=== PATIENT | female | born 1950 | race Caucasian/White ===

== ENCOUNTER 2020-06-12 07:57 | Emergency (ER) | payer OTHER, SELFPAY ==
--- NOTE | ~2020-06-12 | CT_ITS ---
EXAMINATION: CTA CHEST, ABDOMEN AND PELVIS WITH IV CONTRAST CLINICAL INFORMATION: Severe chest pain radiating to back and abdomen. Evaluate for aortic disease. COMPARISON: Previous CTA of the chest January [address] of the abdomen and pelvis August 2018 TECHNIQUE: Axial images through the chest, abdomen and pelvis following oral and 85 mL Omnipaque 350 intravenous contrast. Sagittal and coronal reconstructions on the technologist workstation were performed. Patient dose 5 6 6 mg/cm. This CT examination was performed using dose optimization techniques as appropriate, variously including the following: *Automated exposure control *Adjustment of mA and/or kV according to patient size (this includes techniques or standardized protocols for targeted exams where dose is matched to indication/reason for exam; i.e. extremities or head) *Use of iterative reconstruction technique FINDINGS: Vascular: There is evidence of severe atherosclerotic disease with vessel wall calcification. The thoracic aorta is tortuous but normal in caliber. No evidence of aneurysm or dissection is seen. The great vessel origins are patent. The pulmonary arteries are well-opacified. No pulmonary embolism is seen. There is ectasia or small aneurysm of the infrarenal abdominal aorta. This measures maximum 3 x 3.4 cm in AP and transverse dimension. There is significant atherosclerotic plaque seen in the infrarenal abdominal aorta. The right common, internal and extrarenal iliac arteries are patent. There is a mild stenosis of the right proximal and mid common iliac artery. There is a diseased right common femoral artery and proximal SFA.. The left common iliac artery is occluded. There is reconstitution of the left iliac bifurcation. The reconstituted left internal and external iliac arteries appear severely diseased. The left common femoral artery demonstrates significant plaque and stenosis. The left femoral bifurcation appears diseased. There is is a mild to moderate stenosis at the celiac axis origin with poststenotic dilatation. There is a a moderate stenosis at the origin and proximal SMA. The JERILYN is patent. There is a mild to moderate stenosis at the origin of the right renal artery. There is an early prehilar branching pattern of the right. There is a mild to moderate stenosis at the origin of the left renal artery. Chest: There is evidence of centrilobular emphysema. There is scarring or subsegmental atelectasis and cicatrization bronchiectasis seen in the bilateral upper lobes. This is new from 2012 exam. There is a 4 mm peripheral left lower lobe nodule axial image 249 series 4. This is triangular in shape and may represent an intrapulmonary lymph node. There are no enlarged hilar or mediastinal lymph nodes. The heart does not appear enlarged. There is no pericardial effusion. There is coronary artery calcification. Abdomen and pelvis: The liver and gallbladder are unremarkable. There is no intrahepatic biliary duct dilatation. The common bile duct is slightly dilated measuring 1 cm. The common bile duct is dilated down to the head of the pancreas and tapers smoothly. No common bile duct stone is appreciated. There is a heterogeneous enhancement of the spleen. This may be related to arterial phase of injection. There is question of a low-attenuation lesion in the head/neck of the pancreas. This area measures 8 x 15 mm axial image 60 series 9. Adrenal glands are unremarkable. There is a large right renal cyst in the upper pole measuring 8 x 10 mm. There is a 3 cm cyst in the lower pole of the right kidney. There are areas of bilateral renal cortical thinning or scarring. The bladder and pelvic organs is not well visualized due to artifact from bilateral hip replacements. There is stool throughout the colon. There is mild diverticulosis. No evidence of diverticulitis is seen. The appendix is normal. The stomach is normal. No ascites or adenopathy is seen. There are T4, T6 and T7 vertebral body compression fractures. The T4 and T7 vertebral bodies have increased sclerosis at the superior endplates and may be recent. This could be better assessed with MRI or bone scan. There are old or healing lower right anterior rib fractures. There are degenerative changes of the spine and scoliosis. There are bilateral hip replacements. 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 Mild right proximal and mid common iliac artery stenoses. Right common femoral and SFA disease. Occluded left common iliac artery. Reconstituted diseased left external iliac artery. Diseased left common femoral artery and femoral bifurcation. Bilateral renal artery stenoses. Celiac axis and SMA stenoses. Tortuous but normal caliber thoracic aorta. No pulmonary embolism seen. CHEST: Emphysema. Scarring or chronic subsegmental atelectasis and mild bronchiectasis of in both upper lobes. Coronary artery calcification. Abdomen and pelvis: Very heterogeneous enhancement of the spleen. This may be related to early arterial phase enhancement. Question low-attenuation lesion in the neck of the pancreas. Additional pancreatic imaging recommended. Right renal cysts. Constipation and diverticulosis. Slightly dilated common bile duct. Limited evaluation of the pelvis due to artifact from bilateral hip replacements. T4, T6 and T7 vertebral body compression fractures.
--- NOTE | 2020-06-12 08:06 | ECG_ITS ---
Test Reason : CHEST PAIN Blood Pressure : / mmHG Vent. Rate : 095 BPM Atrial Rate : 095 BPM P-R Int : 134 ms QRS Dur : 074 ms QT Int : 362 ms P-R-T Axes : 087 023 071 degrees QTc Int : 454 ms Normal sinus rhythm Normal ECG When compared with ECG of 09-FEB-2012 21:21, No significant change was found Referred By: Carl Pearson Electronically Signed By:ESME VILLA MD
[2020-06-12 08:07] VITALS: BP 151/73; BP 157/93; PULSE 70; PULSE 97; RESP 18; O2SAT 95; O2SAT 99; BMI 22.0
[2020-06-12 08:13] VITALS: PULSE 95; RESP 18; TEMP 36.9; O2SAT 100
--- NOTE | 2020-06-12 08:17 | ED.CHESTPAIN ---
HPI - Chest Pain General Chief Complaint: Chest Pain Stated Complaint: chest pain Time Seen by Provider: 06/12/20 08:01 Source: patient Mode of arrival: EMS Limitations: no limitations History of Present Illness HPI narrative: 70-year-old female who presents emergency department for evaluation of chest pain abdominal pain, nausea and vomiting. The patient states she developed mid sternal chest pain last night, unknown time. She states the pain came on gradually but then became severe. Initially the pain was intermittent and is now constant. She points to her mid sternal area and mid epigastric area when asked to localize the pain. She describes the pain as a constant, pressure-like pain which is severe, the pain radiates to her right jaw and to her lower back. She had associated nausea with multiple episodes of vomiting. She developed diaphoresis at home. She states this is the 1st episode of this type of pain. States the pain is 10/10 The patient was brought emergency department by ambulance. Patient was found to have BP of 151/79, pulse of 70, O2 saturation in the high 90s on 5 L of nasal cannula, the patient is on 4 L chronically for COPD. The patient's point of care glucose was 145. The patient was given aspirin 324 mg orally and nitroglycerin 0.04 mg sublingually with no relief for pain. Related Data Allergies Allergy/AdvReac Type Severity Reaction Status Date / Time From AVIL Allergy Severe SEVERE Uncoded 01/02/20 16:04 ITCHING Review of Systems Review of Systems: Yes all other systems are reviewed and are negative Neurologic: Reports Abnormal speech present [facility] Past Medical History [facility] Narrative: Past medical history includes hypertension, COPD, on 4 L of nasal cannula constantly, bilateral hip surgeries. The patient states that she lives with her son. She is a former smoker and quit 4 years prior but has greater than 20 pack-year history of smoking, she denies alcohol and drug use. 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 Social History Social History Alcohol intake: never Smoking Status: Former smoker Smoked in Last 30 Days: No Use of substances other than those prescribed or required for medical reasons: No Advance Directives: No Advance Directives Information Provided: No Physical Exam Vital Signs: Vital Signs: Last Vital Signs Temp 97.8 F 06/12/20 12:55 Pulse 92 06/12/20 12:55 Resp 20 02/26/21 12:55 BP 153/76 H 06/12/20 12:55 Pulse Ox 100 06/12/20 12:55 Body Mass Index 22.0 Const: General: cooperative, in distress moderate (Secondary to chest pain) and anxious Orientation/consciousness: oriented to person and oriented to place Limitations: no limitations HENMT: Head: Yes normal to inspection, Yes normocephalic and Yes atraumatic Ears: external ears normal General nose exam: Normal external nose present Face and sinus: Yes normal facial exam Mouth: Normal oral and palatal mucosa present Throat: Yes posterior oropharynx normal Eyes: Periorbital: periorbital findings normal Eyelids: Yes eyelids normal Conjunctivae: conjunctivae normal Sclerae: sclerae normal Corneas: corneas normal Pupils: Equal, round and reactive pupils present Direct Ophthalmoscopy: normal light reflex Neck: Neck: Yes full ROM, Yes no lymphadenopathy, Yes no meningeal signs, Yes trachea midline and Yes supple Chest: Chest palpation & inspection: normal inspection of the chest and normal palpation of entire chest wall Resp: Effort & Inspection: normal respiratory effort and able to speak in complete sentences Auscultation: clear to auscultation bilaterally Cardio: Rate: regular rate Rhythm: regular rhythm Heart sounds: S1 normal heart sound present, S2 normal heart sound present and no murmurs GI: Inspection: Yes normal to inspection Palpation (GI): Soft to palpation, Tenderness to palpation present (GI) in the epigastrum (Moderate), in the LLQ ([id number]), in the RLQ ([id number]) and suprapubicly ([id number]), no guarding, not rigid and No hepatosplenomegaly present : General: Yes no CVA tenderness Back/Spine/Pelvis: Back: no CVA tenderness Cervical Spine: normal cervical lordosis Thoracic/Lumbar Spine: thoracic and lumbar spine normal to inspection Skin: Lesions: no lesions Rashes: no rashes Wounds: no wounds Neuro: General: oriented to person, oriented to place and no meningeal signs Cranial nerves: Yes CN's II-XII intact bilaterally and Yes Equal, round and reactive pupils present Cognition (Neuro): normal cognition Speech: Abnormal speech present Motor exam (neuro): 5/5 motor strength present throughout Extrem: General: Yes normal to inspection and Yes full ROM Psych: Appearance: well kempt Mental Status: mental status grossly normal Speech and movement: Normal speech and movement present Affect: normal affect Attitude: cooperative Thought process: Normal thought process present Thought content: Normal thought content present Course Course Course Narrative: 70-year-old female who presented to the emergency department for evaluation of gradual onset of severe chest and abdominal pain associated with nausea, vomiting, radiation of the pain to her right jaw and to her back and diaphoresis. Physical examination did reveal an elderly woman who was in distress secondary to her pain. She got no relief of her pain from 1 sublingual nitroglycerin and aspirin EN route to the hospital. I did review the [employer] 12 lead EKG and there is no sign of a STEMI. Given her symptoms I am concerned the patient may have an thoracic/abdominal aortic dissection therefore I did order CTA of the patient's chest, abdomen and pelvis. 1007: The patient's chest pain improved to 7 out 10, she was given a 2nd dose of morphine 4 mg IV. The patient's laboratory evaluation revealed an elevated D-dimer 798, CT angiogram of the chest abdomen pelvis is pending. The patient's troponin was detectable at a 0.0 therefore I ordered a 3 hour troponin at 11:30 a.m.. Patient's urine is concerning for urinary tract infection, she states she is symptomatic and is having dysuria and frequency therefore blood cultures were ordered and she was given ceftriaxone 1 g IV. The patient's lactic acid is not elevated at 2.0. 1154: The patient's CT angiogram of the abdomen pelvis revealed nonspecific vascular disease with a small infrarenal aneurysm with a thrombus but no dissection or other acute cause for her chest pain. Patient states that her pain is still 7/10 despite receiving 2 doses of morphine IV. I did order Toradol 15 mg IV and see if this improves her pain. The patient's 3 hour repeat troponin is pending. 1319: The patient got no relief with the IV Toradol. The patient's repeat troponin was unchanged at 8.5. At this time, I have not found an acute cause for the patient's pain but I do not think that it secondary to a cardiac cause or secondary to dissection. Patient most likely has musculoskeletal pain. I did discuss this with her. She was advised to take ibuprofen Tylenol for pain. She was discharged home advised to follow-up with her PCP. I did tell her that she has significant vascular disease with an infrarenal aneurysm that should be followed up by her PCP. MDM - Chest Pain Lab Data Result diagrams: 06/12/20 08:31 06/12/20 08:30 Labs: Lab Results 06/12/20 06/12/20 06/12/20 Range/Units 08:30 08:30 08:30 WBC (4.8-10.8) X10*3/uL RBC (4.20-5.50) X10*6/uL Hgb (12.0-16.0) g/dl Hct (37-47) % MCV (80-98) fL MCH (27.0-33.0) pg MCHC (31.0-35.0) g/dl RDW (11.0-16.0) % Plt Count (160-400) X10*3/uL MPV (9.4-12.3) fL Immature Gran % (Auto) (0.0-0.4) % Neut % (Auto) (45-73) % Lymph % (Auto) (20-40) % [place] % (Auto) (2-11) % Eos % (Auto) (0-4) % Baso % (Auto) (0-2) % Lymph # (Auto) (1.2-4.9) X10*3/uL [place] # (Auto) (0.1-1.2) X10*3/uL Eos # (Auto) (0.0-0.4) X10*3/uL Baso # (Auto) (0.0-0.2) X10*3/uL Abs Immat Gran (auto) (0.00-0.03) X10*3/uL Absolute Neuts (auto) (2.0-8.3) X10*3/uL Absolute Nucleated RBC (0.0-0.012) X10*3/uL Nucleated RBC % (auto) (0.0-0.2) /100WBC APTT (24.1-38.0) SEC D-Dimer NG/ML Sodium (135-145) mmol/L Potassium (3.3-5.1) mmol/L Chloride (96-108) mmol/L Carbon Dioxide (22-29) mmol/L Anion Gap (12-20) BUN (9-16) mg/dL Creatinine (0.5-1.4) mg/dL Estim Creat Clear Calc Estimated GFR Random Glucose (60-115) mg/dL Lactic Acid 2.0 (0.5-2.0) mmol/L Calcium (8.4-10.2) mg/dL Total Bilirubin (0.0-1.0) mg/dL AST (5-31) U/L ALT (0-31) U/L Alkaline Phosphatase (39-117) U/L Troponin I High Sens 8.0 (<3.5-17.0) ng/L B-Natriuretic Peptide 57 (<100) pg/mL Total Protein (6.5-8.0) g/dL Albumin (3.5-5.0) g/dL Lipase (8-78) U/L Urine Color Urine Appearance Urine pH (5.0-8.0) Ur Specific [place] (1.005-1.025) Urine Protein (NEG-TRACE) MG/DL Urine Glucose (UA) (NEG) MG/DL Urine Ketones (NEG) MG/DL Urine Blood (NEG) Urine Nitrite (NEG) Ur Leukocyte Esterase (NEG) Urine RBC (0) /HPF Urine WBC (0-4) /HPF Ur Squamous Epith Cells /LPF Urine Bacteria /LPF Salicylates (15-30) mg/dL COVID-19 ([facility]) Negative (Negative) COVID-19 Clin Com See Note 06/12/20 06/12/20 06/12/20 Range/Units 08:30 08:31 08:31 WBC 8.8 (4.8-10.8) X10*3/uL RBC 3.98 L (4.20-5.50) X10*6/uL Hgb 11.8 L (12.0-16.0) g/dl Hct 36.0 L (37-47) % MCV 90.5 (80-98) fL MCH 29.6 (27.0-33.0) pg MCHC 32.8 (31.0-35.0) g/dl RDW 13.9 (11.0-16.0) % Plt Count 317 (160-400) X10*3/uL MPV 10.4 (9.4-12.3) fL Immature Gran % (Auto) 0.6 H (0.0-0.4) % Neut % (Auto) 64.1 (45-73) % Lymph % (Auto) 23.6 (20-40) % [place] % (Auto) 8.8 (2-11) % Eos % (Auto) 2.3 (0-4) % Baso % (Auto) 0.6 (0-2) % Lymph # (Auto) 2.1 (1.2-4.9) X10*3/uL [place] # (Auto) 0.8 (0.1-1.2) X10*3/uL Eos # (Auto) 0.2 (0.0-0.4) X10*3/uL Baso # (Auto) 0.1 (0.0-0.2) X10*3/uL Abs Immat Gran (auto) 0.05 H (0.00-0.03) X10*3/uL Absolute Neuts (auto) 5.7 (2.0-8.3) X10*3/uL Absolute Nucleated RBC 0.000 (0.0-0.012) X10*3/uL Nucleated RBC % (auto) 0.0 (0.0-0.2) /100WBC APTT 25.9 (24.1-38.0) SEC D-Dimer 798 NG/ML Sodium 142 (135-145) mmol/L Potassium 3.3 (3.3-5.1) mmol/L Chloride 101 (96-108) mmol/L Carbon Dioxide 30 H (22-29) mmol/L Anion Gap 14 (12-20) BUN 24 H (9-16) mg/dL Creatinine 0.95 (0.5-1.4) mg/dL Estim Creat Clear Calc 46.2 Estimated GFR 58 Random Glucose 123 H (60-115) mg/dL Lactic Acid (0.5-2.0) mmol/L Calcium 10.6 H (8.4-10.2) mg/dL Total Bilirubin 0.5 (0.0-1.0) mg/dL AST 14 (5-31) U/L ALT 9 (0-31) U/L Alkaline Phosphatase 90 (39-117) U/L Troponin I High Sens (<3.5-17.0) ng/L B-Natriuretic Peptide (<100) pg/mL Total Protein 6.3 L (6.5-8.0) g/dL Albumin 3.9 (3.5-5.0) g/dL Lipase 53 (8-78) U/L Urine Color Urine Appearance Urine pH (5.0-8.0) Ur Specific [place] (1.005-1.025) Urine Protein (NEG-TRACE) MG/DL Urine Glucose (UA) (NEG) MG/DL Urine Ketones (NEG) MG/DL Urine Blood (NEG) Urine Nitrite (NEG) Ur Leukocyte Esterase (NEG) Urine RBC (0) /HPF Urine WBC (0-4) /HPF Ur Squamous Epith Cells /LPF Urine Bacteria /LPF Salicylates < 5.0 L (15-30) mg/dL COVID-19 ([facility]) (Negative) COVID-19 Clin Com 06/12/20 06/12/20 06/12/20 Range/Units 08:31 09:04 11:47 WBC (4.8-10.8) X10*3/uL RBC (4.20-5.50) X10*6/uL Hgb (12.0-16.0) g/dl Hct (37-47) % MCV (80-98) fL MCH (27.0-33.0) pg MCHC (31.0-35.0) g/dl RDW (11.0-16.0) % Plt Count (160-400) X10*3/uL MPV (9.4-12.3) fL Immature Gran % (Auto) (0.0-0.4) % Neut % (Auto) (45-73) % Lymph % (Auto) (20-40) % [place] % (Auto) (2-11) % Eos % (Auto) (0-4) % Baso % (Auto) (0-2) % Lymph # (Auto) (1.2-4.9) X10*3/uL [place] # (Auto) (0.1-1.2) X10*3/uL Eos # (Auto) (0.0-0.4) X10*3/uL Baso # (Auto) (0.0-0.2) X10*3/uL Abs Immat Gran (auto) (0.00-0.03) X10*3/uL Absolute Neuts (auto) (2.0-8.3) X10*3/uL Absolute Nucleated RBC (0.0-0.012) X10*3/uL Nucleated RBC % (auto) (0.0-0.2) /100WBC APTT (24.1-38.0) SEC D-Dimer NG/ML Sodium Cancelled (135-145) mmol/L Potassium Cancelled (3.3-5.1) mmol/L Chloride Cancelled (96-108) mmol/L Carbon Dioxide Cancelled (22-29) mmol/L Anion Gap Cancelled (12-20) BUN Cancelled (9-16) mg/dL Creatinine Cancelled (0.5-1.4) mg/dL Estim Creat Clear Calc Cancelled Estimated GFR Cancelled Random Glucose Cancelled (60-115) mg/dL Lactic Acid (0.5-2.0) mmol/L Calcium Cancelled (8.4-10.2) mg/dL Total Bilirubin Cancelled (0.0-1.0) mg/dL AST Cancelled (5-31) U/L ALT Cancelled (0-31) U/L Alkaline Phosphatase Cancelled (39-117) U/L Troponin I High Sens 8.5 (<3.5-17.0) ng/L B-Natriuretic Peptide (<100) pg/mL Total Protein Cancelled (6.5-8.0) g/dL Albumin Cancelled (3.5-5.0) g/dL Lipase (8-78) U/L Urine Color YELLOW Urine Appearance CLOUDY Urine pH 6.5 (5.0-8.0) Ur Specific [place] 1.020 (1.005-1.025) Urine Protein TRACE (NEG-TRACE) MG/DL Urine Glucose (UA) NEG (NEG) MG/DL Urine Ketones NEG (NEG) MG/DL Urine Blood TRACE (NEG) Urine Nitrite POS H (NEG) Ur Leukocyte Esterase 2+ H (NEG) Urine RBC 1-4 (0) /HPF Urine WBC 15-29 H (0-4) /HPF Ur Squamous Epith Cells 2+ /LPF Urine Bacteria 3+ /LPF Salicylates (15-30) mg/dL COVID-19 ([facility]) (Negative) COVID-19 Clin Com Imaging Data CTA chest/abdomen/pelvis: Radiologist's impression: IMPRESSION: 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 Mild right proximal and mid common iliac artery stenoses. Right common femoral and SFA disease. Occluded left common iliac artery. Reconstituted diseased left external iliac artery. Diseased left common femoral artery and femoral bifurcation. Bilateral renal artery stenoses. Celiac axis and SMA stenoses. Tortuous but normal caliber thoracic aorta. No pulmonary embolism seen. CHEST: Emphysema. Scarring or chronic subsegmental atelectasis and mild bronchiectasis of in both upper lobes. Coronary artery calcification. Abdomen and pelvis: Very heterogeneous enhancement of the spleen. This may be related to early arterial phase enhancement. Question low-attenuation lesion in the neck of the pancreas. Additional pancreatic imaging recommended. Right renal cysts. Constipation and diverticulosis. Slightly dilated common bile duct. Limited evaluation of the pelvis due to artifact from bilateral hip replacements. T4, T6 and T7 vertebral body compression fractures. ECG Data ECG #1: Attestation: I personally reviewed and interpreted this ECG as follows: ECG interpretation date: 06/12/20 ECG interpretation time: 08:14 Interpretation: Normal sinus rhythm with a rate of 95, normal [place], QRS and QTC intervals, Q-wave in lead V1, no ST segment elevation depression. No evidence for cardiac ischemia or acute myocardial injury. Discharge Plan Discharge Clinical Impression: Chest pain Qualifiers: Chest pain type: unspecified Qualified Code(s): R07.9 - Chest pain, unspecified Patient Disposition: Home, Self-Care Instructions: Chest Pain (ED) Additional Instructions: Your laboratory evaluation did reveal detectable troponin however this did not change on repeat suggesting that he did not have a heart attack today which is reassuring. The CT angiogram of your chest abdomen pelvis revealed that she had to have significant vascular disease (hardening of the arteries) but I do not think that these are causing her pain at this time. You do have a very small aneurysm of your abdominal aortic artery, located just below the kidneys (infrarenal aneurysm). This needs to be followed by your doctor but I do not think this is the cause of your pain. Take ibuprofen 200 mg pills, 2 pills every 6 hours as needed for pain. Take Tylenol (acetaminophen) 500 mg pills, 2 pills every 4 to 6 hours as needed for pain. Follow-up with your doctor in 2 days. Please return to the emergency department if your symptoms get worse or if you develop any symptoms that are concerning to you.
[2020-06-12 08:34] VITALS: RESP 16
[2020-06-12] MEDS: Morphine Sulfate 4 MG/ML CARTRIDGE IVPUSH ×2 (08:34→09:38)
[2020-06-12] MEDS: ondansetron HCL 4 MG/2 ML VIAL IVPUSH (08:34)
[2020-06-12] MEDS: 0.9 % Sodium Chloride 1,000 ML 999 ML IV (08:40)
[2020-06-12 08:52] LABS: MANUAL DIFF FLAG NO
[2020-06-12 08:57] LABS: Basophils Absolute Auto 0.1 X10*3/uL (0.0-0.2); Basophils Percent Auto 0.6 % (0-2); Eosinophils Absolute Auto 0.2 X10*3/uL (0.0-0.4); Eosinophils Percent Auto 2.3 % (0-4); Hemoglobin 11.8 g/dl (12.0-16.0); Imm Gran Abs Auto 0.05 X10*3/uL (0.00-0.03); Imm Gran Pct Auto 0.6 % (0.0-0.4); Lymphocytes Absolute Auto 2.1 X10*3/uL (1.2-4.9); Lymphocytes Percent Auto 23.6 % (20-40); Mean Corpuscular HGB Conc 32.8 g/dl (31.0-35.0); Mean Corpuscular Hemoglobin 29.6 pg (27.0-33.0); Mean Corpuscular Volume 90.5 fL (80-98); Mean Platelet Volume 10.4 fL (9.4-12.3); Monocytes Absolute Auto 0.8 X10*3/uL (0.1-1.2); Monocytes Percent Auto 8.8 % (2-11); Neutrophils Absolute Auto 5.7 X10*3/uL (2.0-8.3); Neutrophils Percent Auto 64.1 % (45-73); Platelet Count 317 X10*3/uL (160-400); Red Blood Count 3.98 X10*6/uL (4.20-5.50); Red Cell Distribution Width 13.9 % (11.0-16.0); White Blood Count 8.8 X10*3/uL (4.8-10.8)
[2020-06-12 09:06] LABS: D Dimer 798 NG/ML; Partial Thromboplastin Time 25.9 SEC (24.1-38.0)
[2020-06-12 09:11] LABS: COVID-19 Test Negative (Negative)
[2020-06-12 09:29] LABS: Lipase 53 U/L (8-78); Salicylate < 5.0 mg/dL (15-30)
--- NOTE | 2020-06-12 09:29 | PC.NURSE ---
pt was assisted to beside commode by staff, had shortness of breath when transferring back into bed and 02 sat dropped to 92% on 3L. pt recovered after a few minutes and 02 sat increased to 99% on 3L 02 NC. aware
[2020-06-12 09:32] LABS: Glucose Urine UA NEG (NEG); Leukocyte Esterase Urine 2+ (NEG); Nitrite Urine POS (NEG); PH 6.5 (5.0-8.0); UACC Culture Trigger YES; Urine Blood TRACE (NEG); Urine Ketones NEG (NEG); Urine Protein TRACE MG/DL (NEG-TRACE)
[2020-06-12 09:35] LABS: B Type Natriuretic Peptide 57 pg/mL (<100)
[2020-06-12 09:38] VITALS: RESP 24
[2020-06-12 09:39] LABS: Appearance Urine CLOUDY; Color Urine YELLOW
[2020-06-12 09:43] LABS: Alanine Aminotransferase 9 U/L (0-31); Albumin Level 3.9 g/dL (3.5-5.0); Alkaline Phosphatase 90 U/L (39-117); Anion Gap 14 (12-20); Aspartate Amino Transferase 14 U/L (5-31); Bilirubin Total 0.5 mg/dL (0.0-1.0); Blood Urea Nitrogen 24 mg/dL (9-16); Calcium 10.6 mg/dL (8.4-10.2); Carbon Dioxide 30 mmol/L (22-29); Chloride 101 mmol/L (96-108); Creatinine Clr Calc Pharmacy 46.2; Estimated Glomerular Filt Rate 58; Glucose Random 123 mg/dL (60-115); Potassium 3.3 mmol/L (3.3-5.1); Sodium 142 mmol/L (135-145); Total Protein 6.3 g/dL (6.5-8.0)
[2020-06-12 09:47] LABS: Bacteria Urine 3+ /LPF; Squamous Epithelial Cell Urine 2+ /LPF
[2020-06-12 10:39] VITALS: BP 163/88; PULSE 96; RESP 14; O2SAT 100
[2020-06-12] MEDS: iohexoL 350 MG/ML 100 ML INFUS..BTL 85 ML IV (10:43)
[2020-06-12] MEDS: cefTRIAXone sodium 1 GM in 0.9 % Sodium Chloride 50 ML IV (11:18)
[2020-06-12 12:29] LABS: Troponin-I High Sensitivity 8.5 ng/L (<3.5-17.0)
[2020-06-12] MEDS: Ketorolac Tromethamine 15 MG/ML VIAL IV (12:47)
[2020-06-12 12:55] VITALS: BP 153/76; PULSE 92; RESP 20; TEMP 36.6; O2SAT 100
== END 2020-06-12 15:38 | disposition home or self-care (01) ==
PROVIDERS: Emergency Provider Emergency Medicine Emergency Medical Services
DX: R07.9 Chest pain, unspecified (principal); Z20.822 Contact with and (suspected) exposure to COVID-19; I10 Essential (primary) hypertension; J44.9 Chronic obstructive pulmonary disease, unspecified; F11.20 Opioid dependence, uncomplicated; Z79.82 Long term (current) use of aspirin
CPT/HCPCS: 36415; 71275; 74174; 80053; 80179; 81001; 81003; 83605; 83690; 83880; 84484; 85025; 85379; 85730; 87040; 87086; 87088; 87186; 87635; 93005; 96361; 96365; 96375; 96376; 99284; 99285; J0696; J1885; J2270; J2405; Q9967

== ENCOUNTER 2020-07-23 06:07 | Inpatient (IN) | payer OTHER, SELFPAY ==
[2020-07-23] VITALS (22 sets, daily range): BP systolic 80–210; BP diastolic 49–105; PULSE 82–120; RESP 16–28; TEMP 36.1–36.8; O2SAT 95–100; BMI 22.6
--- NOTE | ~2020-07-23 | XR_ITS ---
EXAMINATION: XR CHEST CLINICAL INFORMATION: Shortness of breath. COMPARISON: CT of the chest done on 06/12/2020. TECHNIQUE: Frontal view of the chest was obtained. FINDINGS: Linear irregular opacities identified within the left mid lung field at the suprahilar region, appear more pronounced since the prior study dated 06/12/2020, may represent evolving pleural-parenchymal scar versus neoplasm. The remainder of the lung sigala are clear. The cardiac mediastinal silhouette is within normal limit. There is no pleural effusion or pneumothorax present. Note is made of presence of a gastric tube with its tip projecting below the level of the diaphragm. XR/XR chest 1V IMPRESSION: Linear irregular opacity seen at left mid lung field, may represent evolving pleural-parenchymal scar versus neoplasm. The tip of the gastric tube is below the level of the diaphragm, not optimally included within the [id number].
--- NOTE | ~2020-07-23 | CT_ITS ---
EXAMINATION: CT ABDOMEN AND PELVIS WITHOUT CONTRAST CLINICAL INFORMATION: Lower abdominal pain. Renal stones. COMPARISON: CT abdomen the abdomen/pelvis dated 06/12/2020. CT abdomen/pelvis dated 08/15/2018 and renal ultrasound dated 04/03/2019. TECHNIQUE: Multidetector volumetric imaging was performed from the superior aspect of the liver through the pubic symphysis. Sagittal and coronal reformatted images were obtained on the technologist's workstation. This CT examination was performed using dose optimization techniques as appropriate, variously including the following: *Automated exposure control *Adjustment of mA and/or kV according to patient size (this includes techniques or standardized protocols for targeted exams where dose is matched to indication/reason for exam; i.e. extremities or head) *Use of iterative reconstruction technique DLP: 487 mGy-cm. FINDINGS: LUNG BASES: Mild emphysematous changes within the lung bases. No new airspace consolidation. LIVER, GALLBLADDER, AND BILIARY TREE: The liver is normal in size, shape, and attenuation. No focal hepatic lesion or biliary ductal dilatation is present. The gallbladder is significantly distended, new when compared to the prior examination. Poor visualization of the common bile duct secondary to patient motion. This was previously noted to be dilated on the most recent CT. PANCREAS: Atrophic. Evaluation of the pancreatic head is limited secondary to the lack of IV contrast as well as patient motion. The previously seen low-attenuation lesion is not clearly visualized on the current examination. There is stranding, edema, and amorphous soft tissue density in the region of the pancreatic head and duodenum which is new when compared to the prior examination. Findings may represent a focal infectious or inflammatory process. Correlation with recent intervention is recommended. SPLEEN: Atrophic. ADRENAL GLANDS: Unremarkable. KIDNEYS AND URETERS: Mild bilateral renal atrophy. Renal cysts and bilateral renal vascular calcifications are redemonstrated. No renal or ureteral stone. No hydronephrosis or hydroureter. BLADDER: Poorly visualized due to streak artifact from the right and left hip arthroplasty. GASTROINTESTINAL TRACT: There is prominent wall thickening with adjacent inflammatory change in the region of the first and second portions of the duodenum, new when compared to the prior examination. Findings may represent acute duodenitis or be related to adjacent pancreatic head pathology. Sigmoid diverticulosis without evidence of acute diverticulitis. No small or large bowel obstruction. Unremarkable appendix. PERITONEAL CAVITY: Multiple small foci of intra-abdominal free air within the upper abdomen adjacent to the gallbladder fossa and within the anterior mesentery. Findings could indicate occult bowel perforation or be related to recent intervention. No intra-abdominal free fluid. No organized fluid collection/abscess formation. ABDOMINAL WALL: Tiny, fat-containing periumbilical hernia. LYMPH NODES: No significant lymphadenopathy. VASCULAR: Focal dilatation of the infrarenal abdominal aorta is unchanged when compared to the prior examination measuring approximately 3 x 3.4 cm. Prominent atherosclerotic calcifications are redemonstrated. PELVIC VISCERA: Obscured by metallic streak artifact. OSSEOUS STRUCTURES: Right and left hip arthroplasty. No concerning lytic or blastic osseous lesion. CT/CT abdomen pelvis wo con IMPRESSION: 1. Prominent wall thickening involving the first and second portions of the duodenum with adjacent stranding. This is in the region of the pancreatic head. Findings are new when compared to the prior examination and may represent duodenitis versus pancreatitis. The previously seen pancreatic head lesion is not well seen due to patient motion and the lack of IV contrast. Findings may related to an infectious or inflammatory process. Alternatively, findings may be the sequela of recent intervention. 2. Multiple small foci of upper abdominal free air which are new when compared to the prior examination. Findings may be related to an occult bowel perforation or secondary to recent intervention. 3. Dilatation of the gallbladder, increased when compared to prior examination. The previously seen common bile duct dilatation is obscured due to the inflammatory change and patient motion. No inflammatory change associated with the gallbladder. 4. Mild bilateral renal atrophy with renal cysts and multiple vascular calcifications, similar when compared to the prior examination. No obstructing renal or ureteral stone. No hydronephrosis or hydroureter. 5. Sigmoid diverticulosis without evidence of acute diverticulitis. No small or large bowel obstruction. Unremarkable appendix. 6. Additional chronic findings are unchanged. This critical result was discussed with Dr. Nelson at 7:40 a.m. on 07/23/2020 and it was ascertained that the content and urgency of the report was understood at the time of direct communication.
--- NOTE | ~2020-07-23 | US_ITS ---
EXAMINATION: US ABDOMEN LIMITED CLINICAL INFORMATION: Dilated gallbladder on CT abdomen performed for lower abdominal pain. COMPARISON: CT abdomen and pelvis noncontrast 07/23/2020. TECHNIQUE: Real-time ultrasound right upper quadrant abdomen is targeted to the gallbladder. FINDINGS: The gallbladder is distended to 4.2 cm in diameter. There is no gallstone or definite dependent sludge. There is no gallbladder wall thickening or subserosal edema. No pericholecystic fluid. Common duct is mildly distended measuring 0.8 cm. No visible ductal calculus in the visualized portion. US/US abdomen limited IMPRESSION: 1. Distended gallbladder. No wall thickening, calculus, or sludge. 2. Mild fullness common duct, 0.8 cm.
--- NOTE | 2020-07-23 06:31 | ED.ABDPAIN ---
HPI - Abdominal Pain General Chief Complaint: Abdominal Pain Stated Complaint: ABD PAIN,LOW O2SAT @ 59%RA,NO CONC FOR COVID Time Seen by Provider: 07/23/20 06:30 Source: patient and EMS Mode of arrival: EMS Limitations: other (poor historian) History of Present Illness HPI narrative: 70 yo female with COPD on 5L [place] home O2 at home, hx of kidney stones comes in with a couple of hours of lower abodminal pain feels like renal colic to her, EMS noted her O2 sats were in the 60s on arrival but here her sats have been in 90s on her normal home O2 amount, patient states she felt fine yesterday MD elicited complaint: abdominal pain Pertinent past history: kidney stones Onset (ago): hour(s) (2) Pain Consistency: constant Location: suprapubic Severity: moderate Quality: stabbing Radiation: none Migration to: no migration Exacerbating factors: movement Relieving factors: nothing Context: history of similar episodes Associated symptoms: denies other symptoms Treatments prior to arrival: NSAIDs and prescription analgesics Related Data Home Medications Medication Instructions Recorded Confirmed acetaminophen 2 tab PO TID PRN 07/23/20 albuterol sulfate 2.5 mg INHALATION Q6H PRN 07/23/20 albuterol sulfate [Ventolin HFA] 2 puff INHALATION BID PRN 07/23/20 amlodipine 10 mg PO DAILY 07/23/20 azithromycin 250 mg PO MOWEFR 07/23/20 buprenorphine-naloxone 2 film SUBLINGUAL DAILY 07/23/20 cholecalciferol (vitamin D3) 1 cap PO DAILY 07/23/20 diclofenac sodium 2 g TOPICAL QID 07/23/20 fluticasone propion-salmeterol 2 puff INHALATION BID 07/23/20 [Advair HFA] gabapentin 1,200 tab PO BID 07/23/20 lidocaine 1 appl TOPICAL TID 07/23/20 meloxicam 1 tab PO DAILY 07/23/20 mirtazapine 15 mg PO BEDTIME 07/23/20 nicotine 1 patch TOPICAL DAILY 07/23/20 tiotropium bromide [Spiriva 2 puff INHALATION DAILY 07/23/20 Respimat] Allergies Allergy/AdvReac Type Severity Reaction Status Date / Time From ELAVIL Allergy Severe SEVERE Uncoded 01/02/20 16:04 ITCHING Review of Systems Review of Systems Constitutional : No Weight loss, No Fever, No Chills ENT/Mouth : No sore throat, No Rhinorrhea Eyes: No Swelling, No Redness Cardiovascular : No Chest Pain, No SOB, NoEdema Respiratory : No Cough, No Sputum, No Wheezing Gastrointestinal : no Nausea, no Vomiting, no Diarrhea, positive abdominal Pain, No Hematochezia, No Melena Genitourinary : No Dysuria, No Urinary Frequency, No Hematuria, No Urgency Musculoskeletal : No joint pain, No Myalgias, No Joint Swelling Skin : No Skin Lesions, No rash Neuro : No Weakness, No Numbness, No Dizziness, No Headache Psych : No Anxiety/Panic, No Depression Heme/Lymph: No Bruising, No Lymphadenopathy Endocrine : No Polyuria, No Polydipsia All other systems reviewed and are negative. Physical Exam Vital Signs: Vital Signs: Last Vital Signs Temp 98.3 F 07/23/20 08:00 Pulse 110 H 07/23/20 08:00 Resp 18 07/23/20 08:00 BP 125/83 07/23/20 08:00 Pulse Ox 98 07/23/20 08:00 Body Mass Index 22.6 Appearance: Alert. Oriented X3. in pain, agitated, mild acute distress. Hey doc can you get me some pain meds? Eyes: Pupils equal, round and reactive to light. ENT: Pharynx dry MMM Neck: Normal inspection. Neck supple. CVS: Normal heart rate and rhythm. Pulses normal. Respiratory: No respiratory distress. Breath sounds decreased throughout Abdomen: Distended, guarding, states it doesn't hurt to touch but grimaces with palpation pain is deep inside. Skin: Skin warm and dry. pale skin color. Normal skin turgor. Extremities: No lower extremity edema. No calf ttp Neuro: Oriented X 3. No motor deficit. No sensory deficit. Course Course Course Narrative: call from Radiology - last CT scan in May, no renal colic, around duodenum and pancreatic head new inflammation pancreatitis/duodenitis/free air in upper abdomen - ?occult bowel perforation 741 AM 744 AM call to surgery, cultures, lactic acid, zosyn, protonix ordered 755am Dr. Diaz aware and will evaluate patient repeat multiple doses of IV narcotics for pain, 2L of IVF ordered MDM - Abdominal Pain MDM Narrative Medical decision making narrative: 70 yo female with COPD on 5L [place] home O2 at home, hx of kidney stones reports lower abdominal pain at this time will need labs, UA, CT scan for renal colic, IV morphine for pain, dispo per results and findings. Lab Data Result diagrams: 07/23/20 06:50 07/23/20 08:35 Labs: Lab Results 07/23/20 07/23/20 07/23/20 Range/Units 06:50 08:30 08:35 WBC 9.3 (4.8-10.8) X10*3/uL RBC 4.07 L (4.20-5.50) X10*6/uL Hgb 12.2 (12.0-16.0) g/dl Hct 39.5 (37-47) % MCV 97.1 (80-98) fL MCH 30.0 (27.0-33.0) pg MCHC 30.9 L (31.0-35.0) g/dl RDW 14.6 (11.0-16.0) % Plt Count 519 H D (160-400) X10*3/uL MPV 9.3 L (9.4-12.3) fL Immature Gran % (Auto) 0.3 (0.0-0.4) % Neut % (Auto) 71.0 (45-73) % Lymph % (Auto) 21.1 (20-40) % Conway % (Auto) 5.4 (2-11) % Eos % (Auto) 1.9 (0-4) % Baso % (Auto) 0.3 (0-2) % Lymph # (Auto) 2.0 (1.2-4.9) X10*3/uL Conway # (Auto) 0.5 (0.1-1.2) X10*3/uL Eos # (Auto) 0.2 (0.0-0.4) X10*3/uL Baso # (Auto) 0.0 (0.0-0.2) X10*3/uL Abs Immat Gran (auto) 0.03 (0.00-0.03) X10*3/uL Absolute Neuts (auto) 6.6 (2.0-8.3) X10*3/uL Absolute Nucleated RBC 0.000 (0.0-0.012) X10*3/uL Nucleated RBC % (auto) 0.0 (0.0-0.2) /100WBC PT (10.8-13.0) SEC INR (0.9-1.1) APTT (24.1-38.0) SEC Sodium 146 H (135-145) mmol/L Potassium 3.0 L (3.3-5.1) mmol/L Chloride 108 (96-108) mmol/L Carbon Dioxide 22 (22-29) mmol/L Anion Gap 19 (12-20) BUN 20 H (9-16) mg/dL Creatinine 1.47 H (0.5-1.4) mg/dL Estim Creat Clear Calc 27.2 Estimated GFR 35 Random Glucose 182 H D (60-115) mg/dL Lactic Acid (0.5-2.0) mmol/L Calcium 9.9 D (8.4-10.2) mg/dL Magnesium 2.0 (1.6-2.6) mg/dL Total Bilirubin 0.4 (0.0-1.0) mg/dL Direct Bilirubin 0.3 (0.0-0.5) mg/dL AST 17 (5-31) U/L ALT 8 (0-31) U/L Alkaline Phosphatase 113 D (39-117) U/L Total Protein 6.9 (6.5-8.0) g/dL Albumin 3.9 (3.5-5.0) g/dL Lipase 357 H (8-78) U/L COVID-19 ([facility]) Negative (Negative) COVID-19 Clin Com See Note 07/23/20 07/23/20 Range/Units 08:35 08:35 WBC (4.8-10.8) X10*3/uL RBC (4.20-5.50) X10*6/uL Hgb (12.0-16.0) g/dl Hct (37-47) % MCV (80-98) fL MCH (27.0-33.0) pg MCHC (31.0-35.0) g/dl RDW (11.0-16.0) % Plt Count (160-400) X10*3/uL MPV (9.4-12.3) fL Immature Gran % (Auto) (0.0-0.4) % Neut % (Auto) (45-73) % Lymph % (Auto) (20-40) % Conway % (Auto) (2-11) % Eos % (Auto) (0-4) % Baso % (Auto) (0-2) % Lymph # (Auto) (1.2-4.9) X10*3/uL Conway # (Auto) (0.1-1.2) X10*3/uL Eos # (Auto) (0.0-0.4) X10*3/uL Baso # (Auto) (0.0-0.2) X10*3/uL Abs Immat Gran (auto) (0.00-0.03) X10*3/uL Absolute Neuts (auto) (2.0-8.3) X10*3/uL Absolute Nucleated RBC (0.0-0.012) X10*3/uL Nucleated RBC % (auto) (0.0-0.2) /100WBC PT 12.8 (10.8-13.0) SEC INR 1.1 (0.9-1.1) APTT 29.3 (24.1-38.0) SEC Sodium (135-145) mmol/L Potassium (3.3-5.1) mmol/L Chloride (96-108) mmol/L Carbon Dioxide (22-29) mmol/L Anion Gap (12-20) BUN (9-16) mg/dL Creatinine (0.5-1.4) mg/dL Estim Creat Clear Calc Estimated GFR Random Glucose (60-115) mg/dL Lactic Acid 3.2 H* (0.5-2.0) mmol/L Calcium (8.4-10.2) mg/dL Magnesium (1.6-2.6) mg/dL Total Bilirubin (0.0-1.0) mg/dL Direct Bilirubin (0.0-0.5) mg/dL AST (5-31) U/L ALT (0-31) U/L Alkaline Phosphatase (39-117) U/L Total Protein (6.5-8.0) g/dL Albumin (3.5-5.0) g/dL Lipase (8-78) U/L COVID-19 ([facility]) (Negative) COVID-19 Clin Com Critical Care Time Critical Care Time Critical Care Time: Yes Total Critical Care Time: 60 Attestation: 2L of IVF, antibiotics, medical consult, repeat IV narcotics I attest to this time spent taking care of the patient Discharge Plan Discharge Clinical Impression: Abdominal pain, CHRIS (acute kidney injury), Acute duodenitis, Acidosis, lactic, Acute pancreatitis, Bowel perforation Patient Disposition: Admitted As Inpatient Prescriptions: No Action meloxicam 15 mg tablet 1 tab PO DAILY RF: 0 acetaminophen 500 mg tablet 2 tab PO TID PRN (Reason: Pain (Scale Score 1-3)) RF: 0 amlodipine 10 mg tablet 10 mg PO DAILY RF: 0 nicotine 21 mg/24 hr patch 24 hour 1 patch topical DAILY RF: 0 albuterol sulfate [Ventolin HFA] 90 mcg/actuation HFA aerosol inhaler 2 puff inhalation BID PRN (Reason: wheezing) RF: 0 cholecalciferol (vitamin D3) 25 mcg (1,000 unit) capsule 1 cap PO DAILY RF: 0 mirtazapine 7.5 mg tablet 15 mg PO BEDTIME RF: 0 Advair HFA 115-21 mcg/actuation HFA aerosol inhaler 2 puff inhalation BID RF: 0 diclofenac sodium 1 % gel 2 g topical QID RF: 0 buprenorphine-naloxone 8-2 mg film 2 film sublingual DAILY RF: 0 lidocaine 5 % ointment 1 appl topical TID RF: 0 Spiriva Respimat 1.25 mcg/actuation mist 2 puff inhalation DAILY RF: 0 gabapentin 600 mg tablet 1,200 tab PO BID RF: 0 albuterol sulfate 2.5 mg /3 mL (0.083 %) Solution For Nebulization 2.5 mg INHALATION Q6H PRN (Reason: Shortness Of Breath Or Wheezing) RF: 0 azithromycin 250 mg Tablet 250 mg PO MOWEFR RF: 0 PMFSH Past Medical History Attestation statement: The following information was validated with the patient. Source: old records reviewed Medical History Chronic pain COPD (chronic obstructive pulmonary disease) Hip fracture Kidney stones Knee fracture Surgical History S/P hip replacement Social History Social History Alcohol intake: never Smoking Status: Former smoker Advance Directives: Yes Advance Directives Information Provided: Yes Advance Directives on File: No
[2020-07-23] MEDS: Morphine Sulfate 4 MG/ML CARTRIDGE IVPUSH (06:44)
[2020-07-23] MEDS: ondansetron HCL 4 MG/2 ML VIAL IVPUSH (06:44)
[2020-07-23 06:53] LABS: MANUAL DIFF FLAG NO
[2020-07-23 07:06] LABS: Basophils Percent Auto 0.3 % (0-2); Eosinophils Absolute Auto 0.2 X10*3/uL (0.0-0.4); Eosinophils Percent Auto 1.9 % (0-4); Hematocrit 39.5 % (37-47); Hemoglobin 12.2 g/dl (12.0-16.0); Imm Gran Abs Auto 0.03 X10*3/uL (0.00-0.03); Imm Gran Pct Auto 0.3 % (0.0-0.4); Lymphocytes Percent Auto 21.1 % (20-40); Mean Corpuscular HGB Conc 30.9 g/dl (31.0-35.0); Mean Corpuscular Volume 97.1 fL (80-98); Mean Platelet Volume 9.3 fL (9.4-12.3); Monocytes Absolute Auto 0.5 X10*3/uL (0.1-1.2); Monocytes Percent Auto 5.4 % (2-11); Neutrophils Absolute Auto 6.6 X10*3/uL (2.0-8.3); Platelet Count 519 X10*3/uL (160-400); Red Blood Count 4.07 X10*6/uL (4.20-5.50); Red Cell Distribution Width 14.6 % (11.0-16.0); White Blood Count 9.3 X10*3/uL (4.8-10.8)
--- NOTE | 2020-07-23 07:31 | PC.NURSE ---
PT FLAYING SELF IN STRECHER, HAVE REDIRECTED TO STAY SAFE AND PLEASE STOP HANGING LEGS OVER STRETCHER.
--- NOTE | 2020-07-23 07:32 | PC.NURSE ---
pt currently refusing blood draw stating you're not getting blood until I get pain meds! RN made aware
[2020-07-23] MEDS: HYDROmorphone HCl 0.5 MG/0.5 ML SYRINGE IVPUSH (07:50)
[2020-07-23] MEDS: Pantoprazole Sodium 40 MG/10 ML VIAL IVPUSH ×2 (08:39→16:48)
[2020-07-23] MEDS: fentaNYL citrate/PF 100 MCG/2 ML VIAL IVPUSH ×2 (08:39→09:56)
[2020-07-23] MEDS: Piperacillin Sodium/Tazobactam 3.375 GM in 0.9 % Sodium Chloride 50 ML IV (08:40)
[2020-07-23 08:53] LABS: INTERNATIONAL NORM RATIO 1.1 (0.9-1.1); Prothrombin Time 12.8 SEC (10.8-13.0)
[2020-07-23 08:55] LABS: Partial Thromboplastin Time 29.3 SEC (24.1-38.0)
[2020-07-23 09:04] LABS: Lactic Acid 3.2 mmol/L (0.5-2.0)
[2020-07-23 09:10] LABS: Alanine Aminotransferase 8 U/L (0-31); Albumin Level 3.9 g/dL (3.5-5.0); Alkaline Phosphatase 113 U/L (39-117); Anion Gap 19 (12-20); Aspartate Amino Transferase 17 U/L (5-31); Bilirubin Direct 0.3 mg/dL (0.0-0.5); Bilirubin Total 0.4 mg/dL (0.0-1.0); Blood Urea Nitrogen 20 mg/dL (9-16); Calcium 9.9 mg/dL (8.4-10.2); Carbon Dioxide 22 mmol/L (22-29); Chloride 108 mmol/L (96-108); Creatinine Clr Calc Pharmacy 27.2; Estimated Glomerular Filt Rate 35; Glucose Random 182 mg/dL (60-115); Sodium 146 mmol/L (135-145); Total Protein 6.9 g/dL (6.5-8.0)
[2020-07-23 09:10] LABS: COVID-19 Test Negative (Negative); IDNOW Serial# 9DD0AD1C
[2020-07-23 09:23] LABS: Lipase 357 U/L (8-78)
[2020-07-23] MEDS: 0.9 % Sodium Chloride 1,000 ML 999 ML IVCONT ×2 (09:53→10:18)
[2020-07-23 10:12] LABS: ABG Refer to POC result
[2020-07-23 10:13] LABS: ABG Base Excess -8.1 mmol/L; ABG HCO3 17 mmol/L (22-26); ABG pCO2 36 mmHg (32-45); ABG pCO2 TC 36 mmHg (32-45); ABG pH 7.29 (7.35-7.45); ABG pH TC 7.28 (7.35-7.45); ABG pO2 85 mmHg (83-108); ABG pO2 TC 87 (83-108)
--- NOTE | 2020-07-23 10:35 | P.HPGS_ITS ---
History of Present Illness History of Present Illness Date of Service: 07/23/20 Chief complaint: perforated viscus Narrative: Milagro Burris is a 70 year old female with a history of oxygen-dependent COPD and chronic pain on Suboxone who awoke around 04:00 o'clock this morning with severe diffuse abdominal pain. She did not have nausea, vomiting, fever or chills. She has a history of kidney stones and reports that the pain felt similar to that. She came to the emergency department where CT scan of the abdomen and pelvis was obtained and demonstrated inflammatory change around the duodenum, head of the pancreas and gallbladder. The gallbladder appeared significantly distended. Free air was noted primarily around the gallbladder fossa. There was no significant free fluid. She has a history of severe arthritis and has not been felt to be a candidate for further surgery because of her COPD. She takes ibuprofen daily. Review of Systems Constitutional: Constitutional: Denies chills and Denies fever(s) ENT: Denies hearing loss Cardiovascular: Cardiovascular: Denies chest pain and Reports dyspnea (Chronic) Respiratory: Respiratory: Reports dyspnea (Chronic) Gastrointestinal: Gastrointestinal: Reports as per HPI Genitourinary: Genitourinary: Reports no additional female genitourinary complaints Musculoskeletal: Comments: Severe right knee pain, generalized musculoskeletal pain Integumentary/Breasts: Skin/Breast: Reports system reviewed and no additional complaints, except as docu Hematologic/Lymphatic: Comments: History of polycythemia Allergic/Immunologic: Allergic/Immunologic: Reports no additional allergic/immunologic complaints [facility] Past Medical History Medical History (Updated 07/23/20 @ 10:42 by Irina Diaz MD) Chronic pain COPD (chronic obstructive pulmonary disease) Hip fracture Kidney stones Knee fracture Neck pain with history of cervical spinal surgery Osteoarthritis Surgical History Surgical History (Updated 07/23/20 @ 10:43 by Irina Diaz MD) S/P hip replacement Social History Social History Alcohol intake: never Smoking Status: Former smoker Advance Directives: Yes Advance Directives Information Provided: Yes Advance Directives on File: No Meds Allergies Allergy/AdvReac Type Severity Reaction Status Date / Time From E[facility] Allergy Severe SEVERE Uncoded 01/02/20 16:04 ITCHING Active Medications: Current Medications Generic Name Dose Route Start Last Admin Trade Name Freq PRN Reason Stop Dose Admin Pharmacy Consult 1 each 07/23/20 07:45 Consult Rx Perform Med Rec MISCELLANE ONCE PRN Consult order Home Medications Medication Instructions Recorded Confirmed Last Taken Type albuterol sulfate [Ventolin HFA] 2 puff INHALATION BID PRN 07/23/20 07/23/20 07/23/20 History amlodipine 10 mg PO DAILY 07/23/20 07/23/20 07/23/20 History buprenorphine-naloxone 1 film SUBLINGUAL BID 07/23/20 07/23/20 07/23/20 History 2 mg cholecalciferol (vitamin D3) 1,000 unit PO DAILY 07/23/20 07/23/20 07/23/20 History fluticasone propion-salmeterol 2 puff INHALATION BID 07/23/20 07/23/20 07/23/20 History [Advair HFA] gabapentin 1,200 tab PO BID 07/23/20 07/23/20 07/23/20 History lidocaine 1 appl TOPICAL TID 07/23/20 07/23/20 07/22/20 History mirtazapine 15 mg PO BEDTIME 07/23/20 07/23/20 07/22/20 History tiotropium bromide [Spiriva 2 puff INHALATION DAILY 07/23/20 07/23/20 07/23/20 History Respimat] Physical Exam Vital Signs: Vital Signs: Last Vital Signs Temp 98.3 F 07/23/20 08:00 Pulse 110 H 07/23/20 08:00 Resp 18 07/23/20 08:00 BP 125/83 07/23/20 08:00 Pulse Ox 98 07/23/20 08:00 Body Mass Index 22.6 Const: General: cooperative and acute distress (Due to pain) Orientation/consciousness: patient oriented x3 HENMT: Head: Yes normocephalic and Yes atraumatic Ears: hearing grossly n ormal bilaterally Neck: Neck: Yes normal visual inspection Resp: Auscultation: clear to auscultation bilaterally Cardio: Rate: regular rate Rhythm: regular rhythm GI: Other: Nondistended, quiet, diffusely tender, voluntary guarding present Rectal Exam - Female: deferred Skin: Other: Normal color, warm and dry Neuro: General: patient oriented x3 Psych: Affect: Anxious affect present Results Results Labs: Short CBC 07/23/20 Range/Units 06:50 WBC 9.3 (4.8-10.8) X10*3/uL Hgb 12.2 (12.0-16.0) g/dl Hct 39.5 (37-47) % Plt Count 519 H D (160-400) X10*3/uL BMP 07/23/20 08:35 Sodium 146 H Potassium 3.0 L Chloride 108 Carbon Dioxide 22 BUN 20 H Creatinine 1.47 H Calcium 9.9 D Liver Function 07/23/20 Range/Units 08:35 Total Bilirubin 0.4 (0.0-1.0) mg/dL Direct Bilirubin 0.3 (0.0-0.5) mg/dL AST 17 (5-31) U/L ALT 8 (0-31) U/L Alkaline Phosphatase 113 D (39-117) U/L Albumin 3.9 (3.5-5.0) g/dL Assessment and Plan (1) Bowel perforation: Status: Acute Abdominal pain and free intraperitoneal air, most likely due to a perforated peptic ulcer. She is at high risk for surgery because of her history of severe COPD, and assessment is made more difficult because of her use of Suboxone and ongoing severe pain. I have discussed options for a trial of non operative management with her. This might allow us to avoid surgery, but car candice the risk of worsening overall condition with severe sepsis. Surgery is appropriate. Because of her severe COPD, she likely will require a prolonged period of mechanical ventilation. We have not been able to achieve adequate pain control which also would make ongoing assessment and non operative management extremely difficult. Surgical management appears most appropriate. I have discussed this with her and have reviewed the risks including but not limited to the likelihood of fat prolonged postoperative mechanical ventilation, infection, bleeding, cardiac and pulmonary complications, breakdown of the bowel repair requiring further surgery, DVT and PE, incisional hernia. She agrees to proceed. Her gallbladder is noted to be grossly distended based on her CT scan. This likely is related to the adjacent perforation. There is no evidence of wall thickening or gallstones. Case reviewed with both Dr. Merrill, who is covering the ICU and will accept her in transfer postoperatively and with Dr. Krishnan. Records have been obtained from her primary care office, have reviewed these. Mild hypokalemia is noted. Electrolytes will be reassessed postoperatively. (2) Acidosis, lactic: Status: Acute Due to perforated viscus. IV hydration has been undertaken, blood cultures have been done, she has been started on IV antibiotics. Lactate will be followed. (3) CHRIS (acute kidney injury): Status: Acute Creatinine is mildly elevated at 1.47. It was 0.95 in May. She is receiving IV fluid. Levels will be followed.
[2020-07-23 10:39] LABS: Reflex Lactate? Lactic Acid Added
--- NOTE | 2020-07-23 11:26 | MHC.SHP ---
Pre-Procedural Eval Section A The patient is an INPATIENT: Yes Changes since office visit: No Cold of Flu in the past 2 weeks, No New Medical Problems, No Changes in Medication and No Patient answered all questions The History & Physical has been completed within 30 days and I have reviewed it.: Yes Section B Chief Complaint: perforated viscus Allergies: Allergies Allergy/AdvReac Type Severity Reaction Status Date / Time From ELAVIL Allergy Severe SEVERE Uncoded 01/02/20 16:04 ITCHING Plan I have reviewed the history and physical and performed a pertinent physical examination on my patient. No changes have occurred unless specified.
--- NOTE | 2020-07-23 11:31 | PC.NURSE ---
PT EVALUATED BY SURGICAL SERVICE AND ICU ATTENDING. PT WENT TO OR AND WILL BE ADMITTED TO ICU POST OP.
--- NOTE | 2020-07-23 11:52 | HO.ANESPROP2 ---
HPI - Anesthesia Eval Consult details Narrative: 70yo female patient here for Exploratory Laparotomy. PMFSH Active Problems Active Problems: All Active Problems (Updated 07/23/20 @ 10:42 by Irina Diaz MD) Abdominal pain (Acute) CHRIS (acute kidney injury) (Acute) Acute duodenitis (Acute) Acidosis, lactic (Acute) Acute pancreatitis (Acute) Bowel perforation (Acute) Past Medical History Medical History Chronic pain COPD (chronic obstructive pulmonary disease) Hip fracture Kidney stones Knee fracture Neck pain with history of cervical spinal surgery Osteoarthritis Family History Family history of problems with anesthesia: No Surgical History Surgical History History of cervical spinal surgery S/P hip replacement History of Problems with Anesthesia: No Social History Social History Alcohol intake: never Smoking Status: Former smoker Meds Allergies Allergy/AdvReac Type Severity Reaction Status Date / Time From [facility] Allergy Severe SEVERE Uncoded 01/02/20 16:04 ITCHING Active Medications: Current Medications Generic Name Dose Route Start Last Admin Trade Name Freq PRN Reason Stop Dose Admin Lactated Ringer's 1,000 mls @ 100 mls/hr 07/23/20 12:00 Lr IVCONT .Q10H [facility] Pharmacy Consult 1 each 07/23/20 07:45 Consult Rx Perform Med Rec MISCELLANE ONCE PRN Consult order Home Medications Medication Instructions Recorded Confirmed Last Taken Type albuterol sulfate [Ventolin HFA] 2 puff INHALATION BID PRN 07/23/20 07/23/20 07/23/20 History amlodipine 10 mg PO DAILY 07/23/20 07/23/20 07/23/20 History buprenorphine-naloxone 1 film SUBLINGUAL BID 07/23/20 07/23/20 07/23/20 History 2 mg cholecalciferol (vitamin D3) 1,000 unit PO DAILY 07/23/20 07/23/20 07/23/20 History fluticasone propion-salmeterol 2 puff INHALATION BID 07/23/20 07/23/20 07/23/20 History [Advair HFA] gabapentin 1,200 tab PO BID 07/23/20 07/23/20 07/23/20 History lidocaine 1 appl TOPICAL TID 07/23/20 07/23/20 07/22/20 History mirtazapine 15 mg PO BEDTIME 07/23/20 07/23/20 07/22/20 History tiotropium bromide [Spiriva 2 puff INHALATION DAILY 07/23/20 07/23/20 07/23/20 History Respimat] Exam Exam Date and Time: July 23, 2020 1152 Height,Weight and Vital Signs: Height 5 ft 1 in Weight 54.431 kg Last Vital Signs Temp 96.9 F 07/23/20 11:24 Pulse 118 H 07/23/20 11:24 Resp 20 07/23/20 11:24 BP 111/72 07/23/20 11:24 Pulse Ox 98 07/23/20 11:24 Pertinent Lab Results Pertinent Lab Results: Laboratory Tests 07/23/20 07/23/20 07/23/20 06:50 08:30 08:35 WBC 9.3 RBC 4.07 L Hgb 12.2 Hct 39.5 MCV 97.1 MCH 30.0 MCHC 30.9 L RDW 14.6 Plt Count 519 H D MPV 9.3 L Immature Gran % (Auto) 0.3 Neut % (Auto) 71.0 Lymph % (Auto) 21.1 Green % (Auto) 5.4 Eos % (Auto) 1.9 Baso % (Auto) 0.3 Lymph # (Auto) 2.0 Green # (Auto) 0.5 Eos # (Auto) 0.2 Baso # (Auto) 0.0 Abs Immat Gran (auto) 0.03 Absolute Neuts (auto) 6.6 Absolute Nucleated RBC 0.000 Nucleated RBC % (auto) 0.0 PT INR APTT O2 Saturation ABG pH at Pt Temp ABG pH (Temp Correct) ABG pCO2 at Pt Temp ABG pCO2 (Temp Corrct ABG pO2 at Pt Temp ABG pO2 (Temp Correct ABG HCO3 ABG Base Excess (Actual) Sodium 146 H Potassium 3.0 L Chloride 108 Carbon Dioxide 22 Anion Gap 19 BUN 20 H Creatinine 1.47 H Estim Creat Clear Calc 27.2 Estimated GFR 35 Random Glucose 182 H D Lactic Acid Calcium 9.9 D Magnesium 2.0 Total Bilirubin 0.4 Direct Bilirubin 0.3 AST 17 ALT 8 Alkaline Phosphatase 113 D Total Protein 6.9 Albumin 3.9 Lipase 357 H COVID-19 ([facility]) Negative COVID-19 Clin Com See Note Blood Type Antibody Screen 07/23/20 07/23/20 07/23/20 08:35 08:35 09:35 WBC RBC Hgb Hct MCV MCH MCHC RDW Plt Count MPV Immature Gran % (Auto) Neut % (Auto) Lymph % (Auto) Green % (Auto) Eos % (Auto) Baso % (Auto) Lymph # (Auto) Green # (Auto) Eos # (Auto) Baso # (Auto) Abs Immat Gran (auto) Absolute Neuts (auto) Absolute Nucleated RBC Nucleated RBC % (auto) PT 12.8 INR 1.1 APTT 29.3 O2 Saturation ABG pH at Pt Temp ABG pH (Temp Correct) ABG pCO2 at Pt Temp ABG pCO2 (Temp Corrct ABG pO2 at Pt Temp ABG pO2 (Temp Correct ABG HCO3 ABG Base Excess (Actual) Sodium Potassium Chloride Carbon Dioxide Anion Gap BUN Creatinine Estim Creat Clear Calc Estimated GFR Random Glucose Lactic Acid 3.2 H* Calcium Magnesium Total Bilirubin Direct Bilirubin AST ALT Alkaline Phosphatase Total Protein Albumin Lipase COVID-19 ([facility]) COVID-19 FX Bridge Com Blood Type B Positive Antibody Screen NEGATIVE 07/23/20 10:06 WBC RBC Hgb Hct MCV MCH MCHC RDW Plt Count MPV Immature Gran % (Auto) Neut % (Auto) Lymph % (Auto) Green % (Auto) Eos % (Auto) Baso % (Auto) Lymph # (Auto) Green # (Auto) Eos # (Auto) Baso # (Auto) Abs Immat Gran (auto) Absolute Neuts (auto) Absolute Nucleated RBC Nucleated RBC % (auto) PT INR APTT O2 Saturation 95.0 ABG pH at Pt Temp 7.29 L ABG pH (Temp Correct) 7.28 L ABG pCO2 at Pt Temp 36 ABG pCO2 (Temp Corrct 36 ABG pO2 at Pt Temp 85 ABG pO2 (Temp Correct 87 ABG HCO3 17 L ABG Base Excess (Actual) -8.1 Sodium Potassium Chloride Carbon Dioxide Anion Gap BUN Creatinine Estim Creat Clear Calc Estimated GFR Random Glucose Lactic Acid Calcium Magnesium Total Bilirubin Direct Bilirubin AST ALT Alkaline Phosphatase Total Protein Albumin Lipase COVID-19 ([facility]) COVID-19 Clin Com Blood Type Antibody Screen Airway Mallampati Class: II TM Dist: >3cm Neck ROM: Full Loose/Missing/Broken Teeth: Yes (Dentures out) Heart: RRR Lungs: CTAB Assessment and Plan Assessment Anesthesia Assessment: Anesthesia Plan Discussed and Chart Reviewed Final Anesthetic Review NPO: Yes ASA Class: Emergency Final Preanesthetic Review: No Changes in Pt Med Stat, Consent Obtained/Reviewed and Anes Risks/Benef Reviewed Patient Risk: High Procedure Risk: Intermediate Assessment/Block/Sedation in SS: Assess/Block/Sedation-SS Anesthetic Plan Anesthetic Plan: GA and Other (Arterial Line) Disposition: Inp. Admit - Standard Bed and Inp. Admit - ICU
--- NOTE | 2020-07-23 11:54 | PC.NURSE ---
pt incont. small amount of urine. freddy care given. hemorroids and prolapse uterus noted. pt repositioned for comfort. medications for pain reviewed with Dr Arnold pt continues to moan outloud. offered reassurance. Dr Arnold at bedside talking with pt.
[2020-07-23] MEDS: fentaNYL citrate/PF 100 MCG/2 ML VIAL 50 MCG IVPUSH (12:08)
[2020-07-23] MEDS: Lactated Ringers 1,000 ML 100 ML IVCONT (12:08)
[2020-07-23 12:39] LABS: ~Lactic Acid-LAB USE ONLY 1.9 mmol/L (0.5-2.0)
--- NOTE | 2020-07-23 14:13 | W.PM.OPN ---
Operative Note Operative Note Date of Service: 07/23/20 Narrative: Preoperative Diagnosis: Perforated Viscus Postoperative Diagnosis: Perforated pyloric channel ulcer Procedure: Exploratory laparotomy and repair of perforated pyloric channel ulcer with placement of Kel patch Crating And Moving Estimator: Roc Vaughn MD Anesthesia: General Endotrachial Estimated Blood Loss: Less than 10 cc Specimen: Peritoneal Cultures Immediate Complications: None Indications: This is a 70-year-old female who awoke at about 04:00 o'clock this morning with severe abdominal pain. CT scan of the abdomen and pelvis revealed a small amount of free intraperitoneal air with inflammatory changes around the duodenum and head of the pancreas. Findings were felt to be most consistent with perforated peptic ulcer. Exploratory laparotomy was planned. Procedure in detail with the patient in the supine position after induction of adequate general anesthesia, time-out procedure was performed. The abdomen was prepped with ChloraPrep and was draped sterilely. She had received Zosyn preoperatively and was given 2 g of cephazolin just prior to incision. An upper midline incision was made and was carried down to the level of the fascia. The fascia was split in the midline and the peritoneal cavity was entered. Free intraperitoneal air and bilious fluid was present. Cultures were taken and fluid was suctioned out. An anterior perforated pyloric channel ulcer was identified. The perforated ulcer was repaired with the over-sewing using 3 interrupted sutures of 2 0 Surgilon. The peritoneal cavity was copiously irrigated with warm saline solution. A piece of greater omentum was then placed over the area of perforation and was held in place with the long ends of the sutures that were used for over-sewing of the perforation. The peritoneal cavity was again irrigated with warm saline solution and was inspected for bleeding. None was seen. The fascia was closed using a running suture of 1. Maxon. Subcutaneous tissues were irrigated with saline solution. No bleeding was seen. Skin was closed using mery. A dry sterile dressing was applied. Sponge and instrument counts were correct. She tolerated the procedure well. A tap block was placed by Dr. Miller postoperatively prior to transfer to ICU. Patient was transferred to the intensive care unit intubated and in stable condition.
[2020-07-23] MEDS: propofoL 1,000 MG/100 ML VIAL 6.53 MG IVCONT (15:00)
[2020-07-23] MEDS: niCARdipine HCL 25 MG in 0.9 % Sodium Chloride 250 ML 26 MG IVCONT (15:30)
[2020-07-23] MEDS: Dextrose 5 % and Lactated Ring 1,000 ML 100 ML IVCONT (16:23)
[2020-07-23 16:44] LABS: Hematocrit 42.2 % (37-47); Hemoglobin 13.1 g/dl (12.0-16.0); Mean Corpuscular Hemoglobin 30.4 pg (27.0-33.0); Mean Corpuscular Volume 97.9 fL (80-98); Mean Platelet Volume 9.2 fL (9.4-12.3); Platelet Count 346 X10*3/uL (160-400); Red Blood Count 4.31 X10*6/uL (4.20-5.50); Red Cell Distribution Width 14.6 % (11.0-16.0); White Blood Count 12.2 X10*3/uL (4.8-10.8)
--- NOTE | 2020-07-23 17:03 | W.PM.CCCN ---
History of Present Illness Data of Consult Service Date: 07/23/20 Requesting physician: Irina Diaz Primary Care Provider: Kait Robin MD [facility] Reason for consult: Acute abdomen/perforated viscus/O2 dependent COPD 70-year-old female with background history of opiate dependence on Suboxone who took that Suboxone this morning presented with abrupt onset of abdominal pain and presents with abdominal distension and absent bowel sounds and distinct peritoneal signs and there is trace of free air but there is also evidence of some free fluid and what also looks like bilateral renal cysts and she was in dire pain and we had no means of pain control because she did develop acute on chronic renal insufficiency so decision was made with General surgery to take her to the OR sedate her intubate and maintain the intubation for pain control tonight and also because of her underlying COPD Baseline blood gas indicated metabolic acidosis and she probably is also a mild chronic hypercarbic and hypoxic respiratory failure Postop vital signs are excellent and then she became acutely hypertensive with pressure almost 210 and had to be started on is on a low-dose of nicardipine drip bringing her pressure down and she is being maintained on Ringer's lactate for volume replacement and is going to be on piperacillin IV and she apparently had a duodenal perforation which is now repaired significant us spillage in the abdominal cavity and that was of course lavaged Review of Systems Review of Systems: Yes Unobtainable due to mental status PMFSH Past Medical History Medical History (Updated 07/23/20 @ 17:09 by Brittani Merrill MD) Chronic pain COPD (chronic obstructive pulmonary disease) COPD (chronic obstructive pulmonary disease) Hip fracture Kidney stones Knee fracture Neck pain with history of cervical spinal surgery Osteoarthritis Urinary tract infection Surgical History Surgical History History of cervical spinal surgery S/P hip replacement Social History Social History Alcohol intake: never Smoking Status: Former smoker Meds Allergies Allergy/AdvReac Type Severity Reaction Status Date / Time From ELAVIL Allergy Severe SEVERE Uncoded 01/02/20 16:04 ITCHING Active Medications: Current Medications Generic Name Dose Route Start Last Admin Trade Name Freq PRN Reason Stop Dose Admin Dextrose/Lactated Ringer's 1,000 mls @ 100 mls/hr 07/23/20 14:45 07/23/20 16:23 D5lr IVCONT 100 mls/hr .Q10H JM Administration Piperacillin Sod/Tazobactam 50 mls @ 100 mls/hr 07/23/20 16:00 Sod 2.25 gm/ Sodium Chloride IV Q6H JM Acetaminophen 1,000 mg in 100 mls @ 400 mls/hr 07/23/20 16:00 Ofirmev IV Q6H JM Propofol 1,000 mg in 100 mls @ 0 mls/hr 07/23/20 15:15 07/23/20 15:30 Diprivan IVCONT 30 mcg/kg/min .Q0M JM 9.8 mls/hr Titration Protocol Per Protocol Nicardipine HCl 25 mg/ Sodium 260 mls @ 0 mls/hr 07/23/20 15:30 07/23/20 16:30 Chloride IVCONT 5 mg/hr .Q0M JM 52 mls/hr Titration Protocol Per Protocol Ondansetron HCl 4 mg 07/23/20 14:43 Ondansetron Hcl 4 Mg/2 Ml Vial IVPUSH Q8H PRN Nausea Pantoprazole Sodium 40 mg 07/23/20 16:30 07/23/20 16:48 Pantoprazole Sodium 40 Mg/10 Ml Vial IVPUSH 40 mg BID@0630,1630 [facility] Administration Pharmacy Consult 1 each 07/23/20 07:45 Consult Rx Perform Med Rec MISCELLANE ONCE PRN Consult order Home Medications Medication Instructions Recorded Confirmed Last Taken Type albuterol sulfate [Ventolin HFA] 2 puff INHALATION BID PRN 07/23/20 07/23/20 07/23/20 History amlodipine 10 mg PO DAILY 07/23/20 07/23/20 07/23/20 History buprenorphine-naloxone 1 film SUBLINGUAL BID 07/23/20 07/23/20 07/23/20 History 2 mg cholecalciferol (vitamin D3) 1,000 unit PO DAILY 07/23/20 07/23/20 07/23/20 History fluticasone propion-salmeterol 2 puff INHALATION BID 07/23/20 07/23/20 07/23/20 History [Advair HFA] gabapentin 1,200 tab PO BID 07/23/20 07/23/20 07/23/20 History lidocaine 1 appl TOPICAL TID 07/23/20 07/23/20 07/22/20 History mirtazapine 15 mg PO BEDTIME 07/23/20 07/23/20 07/22/20 History tiotropium bromide [Spiriva 2 puff INHALATION DAILY 07/23/20 07/23/20 07/23/20 History Respimat] Physical Exam Vital Signs: Vital Signs: Last Vital Signs Temp 97.4 F 07/23/20 16:00 Pulse 94 07/23/20 16:57 Resp 16 07/23/20 16:57 BP 101/91 H 07/23/20 16:57 Pulse Ox 100 07/23/20 16:57 Body Mass Index 22.6 Initially awake and alert very appropriate and conversational nonfocal neurologically Cardiac exam with good bilateral carotid upstrokes and no neck vein distension and no gallops Abdomen distended diffusely tender and guarding no organomegaly Chest with diminished breath sounds bilaterally No livedo no acrocyanosis Results Labs CBC & Chem 7: 07/23/20 16:27 07/23/20 08:35 Labs: Short CBC 07/23/20 07/23/20 Range/Units 06:50 16:27 WBC 9.3 12.2 H (4.8-10.8) X10*3/uL Hgb 12.2 13.1 (12.0-16.0) g/dl Hct 39.5 42.2 (37-47) % Plt Count 519 H D 346 D (160-400) X10*3/uL BMP 07/23/20 08:35 Sodium 146 H Potassium 3.0 L Chloride 108 Carbon Dioxide 22 BUN 20 H Creatinine 1.47 H Calcium 9.9 D Liver Function 07/23/20 Range/Units 08:35 Total Bilirubin 0.4 (0.0-1.0) mg/dL Direct Bilirubin 0.3 (0.0-0.5) mg/dL AST 17 (5-31) U/L ALT 8 (0-31) U/L Alkaline Phosphatase 113 D (39-117) U/L Albumin 3.9 (3.5-5.0) g/dL Assessment and Plan (1) History of cervical spinal surgery: Status: Acute (2) Abdominal pain: Qualifiers: Abdominal location: epigastric Qualified Code(s): R10.13 - Epigastric pain Status: Acute (3) CHRIS (acute kidney injury): Status: Acute (4) Acute duodenitis: Status: Acute (5) Acidosis, lactic: Status: Acute (6) Acute pancreatitis: Qualifiers: Acute pancreatitis complication: unspecified Pancreatitis type: other Qualified Code(s): K85.80 - Other acute pancreatitis without necrosis or infection Status: Acute (7) Bowel perforation: Status: Acute (8) Peritonitis: Status: Acute (9) Urinary tract infection: Status: Acute (10) COPD (chronic obstructive pulmonary disease): Status: Acute Agree with the IV fluids maintenance of sedation and ventilator for tonight and possible weaning tomorrow of the ventilator and course of sedation
[2020-07-23 17:08] LABS: Anion Gap 15 (12-20); Blood Urea Nitrogen 20 mg/dL (9-16); Carbon Dioxide 20 mmol/L (22-29); Chloride 113 mmol/L (96-108); Creatinine Clr Calc Pharmacy 24.6; Estimated Glomerular Filt Rate 31; Glucose Random 174 mg/dL (60-115); Magnesium 1.7 mg/dL (1.6-2.6); Phosphorus 4.3 mg/dL (2.7-4.5); Potassium 3.3 mmol/L (3.3-5.1); Sodium 145 mmol/L (135-145)
[2020-07-23] MEDS: Piperacillin Sodium/Tazobactam 2.25 GM in 0.9 % Sodium Chloride 50 ML IV ×2 (18:40→22:33)
[2020-07-23] MEDS: KCl 40 mEq in 5% Dex/0.45% Sod 40 MEQ/1,000 ML IV.SOLN 150 MEQ IVCONT (18:41)
[2020-07-23] MEDS: Albuterol/Iprat 2.5/0.5MG 3 ML AMPUL.NEB INHALE (20:22)
--- NOTE | 2020-07-23 21:09 | PC.NURSE ---
Assumed care 15:15. Patient arrived from OR, s/p perforated pyloric channel ulcer. Dressing to midline, intact to mery and dressing with no staining. was intubated #7.5 ETT, 22 cm connie, Patient on AC settings, 16;400; 100% titrated down to 40%; peep 5; TV around 400; TE around 6-7. Patient with positive cough and gag, not responding to commands, PERRL, no tracking; restraints ordered and patient pulls against restraints; Propofol ordered on arrival and patient sedated on 20 propofol, uptitrated to 30. Patient is tolerating vent. Only has peripheral access, and MD aware; numerous compatibility issues delayed administration of medications, new additional peripheral access obtained. Patient had BP of 210/90 via arterial line and SBP in 190's on arrival, consistent measurements between A-line and BP cuff. MD notified and new order for Cardene, titirated up to 7.5 and back down to 2.5; Patient SBP now 120's-130's. Patient with small amount of blood tinged inline and oral secretions. Lung sounds clear to auscultation. Patient with hypoactive bowel sounds. Skin is intact aside from midline incision.
[2020-07-23 21:15] LABS: Glucose Urine UA NEG (NEG); Leukocyte Esterase Urine NEG (NEG); Nitrite Urine NEG (NEG); Urine Blood 1+ (NEG); Urine Ketones NEG (NEG); Urine Protein 1+ MG/DL (NEG-TRACE)
[2020-07-23 21:16] LABS: Appearance Urine CLEAR; Color Urine YELLOW
[2020-07-23 21:27] LABS: Amorphous Sediment Urine 1+ /LPF; Bacteria Urine TRACE /LPF; Granular Casts Urine 0-2 /LPF; Renal Epithelial Cells Urine TRACE /LPF; Squamous Epithelial Cell Urine 1+ /LPF
[2020-07-23] MEDS: propofoL 1,000 MG/100 ML VIAL 9.8 MG IVCONT (22:39)
[2020-07-24] VITALS (32 sets, daily range): BP systolic 88–144; BP diastolic 44–81; PULSE 81–131; RESP 14–24; TEMP 36.4–37.1; O2SAT 92–100
[2020-07-24] MEDS: KCl 40 mEq in 5% Dex/0.45% Sod 40 MEQ/1,000 ML IV.SOLN 150 MEQ IVCONT ×2 (01:14→08:12)
[2020-07-24] MEDS: Piperacillin Sodium/Tazobactam 2.25 GM in 0.9 % Sodium Chloride 50 ML IV ×4 (03:34→21:19)
[2020-07-24] MEDS: propofoL 1,000 MG/100 ML VIAL 9.8 MG IVCONT (04:20)
[2020-07-24] MEDS: Pantoprazole Sodium 40 MG/10 ML VIAL IVPUSH ×2 (05:38→15:31)
[2020-07-24 05:42] LABS: Hematocrit 32.8 % (37-47); Mean Corpuscular HGB Conc 30.5 g/dl (31.0-35.0); Mean Corpuscular Hemoglobin 29.5 pg (27.0-33.0); Mean Corpuscular Volume 96.8 fL (80-98); Mean Platelet Volume 9.5 fL (9.4-12.3); Platelet Count 274 X10*3/uL (160-400); Red Blood Count 3.39 X10*6/uL (4.20-5.50); Red Cell Distribution Width 14.6 % (11.0-16.0); White Blood Count 10.4 X10*3/uL (4.8-10.8)
[2020-07-24 06:07] LABS: Anion Gap 12 (12-20); Blood Urea Nitrogen 19 mg/dL (9-16); Calcium 7.8 mg/dL (8.4-10.2); Carbon Dioxide 19 mmol/L (22-29); Chloride 115 mmol/L (96-108); Creatinine Clr Calc Pharmacy 29.2; Estimated Glomerular Filt Rate 38; Glucose Fasting 220 mg/dL (60-99); Potassium 4.1 mmol/L (3.3-5.1); Sodium 142 mmol/L (135-145)
--- NOTE | 2020-07-24 08:13 | PM.PNGS ---
Subjective Subjective Date of Service: 07/24/20 Interval history: No events reported overnight Not on pressors Good urine output Physical Exam Vital Signs: Vital Signs: Last Vital Signs Temp 98.5 F 07/24/20 07:59 Pulse 119 H 07/24/20 07:59 Resp 15 07/24/20 07:59 BP 88/65 L 07/24/20 07:59 Pulse Ox 98 07/24/20 07:59 Body Mass Index 22.6 Laboratory Results - last 24 hr 07/23/20 07/23/20 07/23/20 08:30 08:35 08:35 WBC RBC Hgb Hct MCV MCH MCHC RDW Plt Count MPV Absolute Nucleated RBC Nucleated RBC % (a uto) PT INR APTT O2 Saturation ABG pH at Pt Temp ABG pH (Temp Corre ct) ABG pCO2 at Pt Tem p ABG pCO2 (Temp Cor rct ABG pO2 at Pt Temp ABG pO2 (Temp Reanna ect ABG HCO3 ABG Base Excess (A ctual) Sodium 146 H Potassium 3.0 L Chloride 108 Carbon Dioxide 22 Anion Gap 19 BUN 20 H Creatinine 1.47 H Estim Creat Clear Calc 27.2 Estimated GFR 35 Random Glucose 182 H D Fasting Glucose Lactic Acid 3.2 H* Lactic Acid Fup @ 2Hr Calcium 9.9 D Phosphorus Magnesium 2.0 Total Bilirubin 0.4 Direct Bilirubin 0.3 AST 17 ALT 8 Alkaline Phosphata se 113 D Total Protein 6.9 Albumin 3.9 Lipase 357 H Urine Color Urine Appearance Urine pH Ur Specific Gravit y Urine Protein Urine Glucose (UA) Urine Ketones Urine Blood Urine Nitrite Ur Leukocyte Sisi ase Urine RBC Urine WBC Ur Squamous Epith Cells Ur Renal Epithelia l Cell Amorphous Sediment Urine Bacteria Granular Casts COVID-19 ([facility]) Negative COVID-19 Clin Com See Note Blood Type Antibody Screen 07/23/20 07/23/20 07/23/20 08:35 09:35 10:06 WBC RBC Hgb Hct MCV MCH MCHC RDW Plt Count MPV Absolute Nucleated RBC Nucleated RBC % (a uto) PT 12.8 INR 1.1 APTT 29.3 O2 Saturation 95.0 ABG pH at Pt Temp 7.29 L ABG pH (Temp Corre ct) 7.28 L ABG pCO2 at Pt Tem p 36 ABG pCO2 (Temp Cor rct 36 ABG pO2 at Pt Temp 85 ABG pO2 (Temp Reanna ect 87 ABG HCO3 17 L ABG Base Excess (A ctual) -8.1 Sodium Potassium Chloride Carbon Dioxide Anion Gap BUN Creatinine Estim Creat Clear Calc Estimated GFR Random Glucose Fasting Glucose Lactic Acid Lactic Acid Fup @ 2Hr Calcium Phosphorus Magnesium Total Bilirubin Direct Bilirubin AST ALT Alkaline Phosphata se Total Protein Albumin Lipase Urine Color Urine Appearance Urine pH Ur Specific Gravit y Urine Protein Urine Glucose (UA) Urine Ketones Urine Blood Urine Nitrite Ur Leukocyte Sisi ase Urine RBC Urine WBC Ur Squamous Epith Cells Ur Renal Epithelia l Cell Amorphous Sediment Urine Bacteria Granular Casts COVID-19 ([facility]) COVID-19 Clin Com Blood Type B Positive Antibody Screen NEGATIVE 07/23/20 07/23/20 07/23/20 12:03 16:27 16:27 WBC 12.2 H RBC 4.31 Hgb 13.1 Hct 42.2 MCV 97.9 MCH 30.4 MCHC 31.0 RDW 14.6 Plt Count 346 D MPV 9.2 L Absolute Nucleated RBC 0.000 Nucleated RBC % (a uto) 0.0 PT INR APTT O2 Saturation ABG pH at Pt Temp ABG pH (Temp Corre ct) ABG pCO2 at Pt Tem p ABG pCO2 (Temp Cor rct ABG pO2 at Pt Temp ABG pO2 (Temp Reanna ect ABG HCO3 ABG Base Excess (A ctual) Sodium 145 Potassium 3.3 Chloride 113 H Carbon Dioxide 20 L Anion Gap 15 BUN 20 H Creatinine 1.63 H Estim Creat Clear Calc 24.6 Estimated GFR 31 Random Glucose 174 H Fasting Glucose Lactic Acid Lactic Acid Fup @ 2Hr 1.9 Calcium 9.0 D Phosphorus 4.3 Magnesium 1.7 Total Bilirubin Direct Bilirubin AST ALT Alkaline Phosphata se Total Protein Albumin Lipase Urine Color Urine Appearance Urine pH Ur Specific Gravit y Urine Protein Urine Glucose (UA) Urine Ketones Urine Blood Urine Nitrite Ur Leukocyte Sisi ase Urine RBC Urine WBC Ur Squamous Epith Cells Ur Renal Epithelia l Cell Amorphous Sediment Urine Bacteria Granular Casts COVID-19 ([facility]) COVID-19 Clin Com Blood Type Antibody Screen 07/23/20 07/24/20 07/24/20 21:00 05:18 05:18 WBC 10.4 RBC 3.39 L D Hgb 10.0 L D Hct 32.8 L D MCV 96.8 MCH 29.5 MCHC 30.5 L RDW 14.6 Plt Count 274 MPV 9.5 Absolute Nucleated RBC 0.000 Nucleated RBC % (a uto) 0.0 PT INR APTT O2 Saturation ABG pH at Pt Temp ABG pH (Temp Corre ct) ABG pCO2 at Pt Tem p ABG pCO2 (Temp Cor rct ABG pO2 at Pt Temp ABG pO2 (Temp Reanna ect ABG HCO3 ABG Base Excess (A ctual) Sodium 142 Potassium 4.1 D Chloride 115 H Carbon Dioxide 19 L Anion Gap 12 BUN 19 H Creatinine 1.37 Estim Creat Clear Calc 29.2 Estimated GFR 38 Random Glucose Fasting Glucose 220 H Lactic Acid Lactic Acid Fup @ 2Hr Calcium 7.8 L D Phosphorus Magnesium Total Bilirubin Direct Bilirubin AST ALT Alkaline Phosphata se Total Protein Albumin Lipase Urine Color YELLOW Urine Appearance CLEAR Urine pH 6.0 Ur Specific Gravit y 1.020 Urine Protein 1+ H Urine Glucose (UA) NEG Urine Ketones NEG Urine Blood 1+ H Urine Nitrite NEG Ur Leukocyte Sisi ase NEG Urine RBC 1-4 Urine WBC 1-4 Ur Squamous Epith Cells 1+ Ur Renal Epithelia l Cell TRACE Amorphous Sediment 1+ Urine Bacteria TRACE Granular Casts 0-2 COVID-19 ([facility]) COVID-19 Clin Com Blood Type Antibody Screen Const: Other: On ventilator, sedated Resp: Other: Intubated, on the ventilator GI: Other: Soft, dressings dry Progress Note: A&P Assessment and plan (1) Bowel perforation: Status: Acute Assessment and Plan: Status post omental patching of perforated peptic ulcer Seems to have done well overnight Being weaned off the ventilator Good urine output Pain management Labs okay Keep NG tube in place Keep NPO for now Discussed with polytechnic teacher Fall Risk Details Current Medications: Current Medications Generic Name Dose Route Start Last Admin Trade Name Freq PRN Reason Stop Dose Admin Acetaminophen 650 mg 07/23/20 19:29 Acetaminophen Supp 650 Mg Supp.Rect DC Q6H PRN Fever Albuterol/Ipratropium 3 ml 07/23/20 20:00 07/24/20 07:22 Albuterol/Iprat 2.5/0.5mg 3 Ml Ampul.Neb INHALE Not Given RQ4H WHILE AWAKE JM Buprenorphine HCl 4 mg 07/24/20 09:00 Buprenorphine Hcl 2 Mg Tab.Subl SUBLINGUAL DAILY JM Hydromorphone HCl 0.5 mg 04/09/21 06:49 Hydromorphone Hcl 0.5 Mg/0.5 Ml Syringe IVPUSH Q4H PRN Pain, Severe (Pain Scale 7-10) Piperacillin Sod/Tazobactam 50 mls @ 100 mls/hr 07/23/20 16:00 07/24/20 04:08 Sod 2.25 gm/ Sodium Chloride IV Infused Q6H [facility] Infusion Propofol 1,000 mg in 100 mls @ 0 mls/hr 07/23/20 15:15 07/24/20 07:05 Diprivan IVCONT 0 mcg/kg/min .Q0M JM 0 mls/hr Titration Protocol Per Protocol Potassium Chloride/Dextrose/Sod Cl 40 meq in 1,000 mls @ 125 mls/hr 07/23/20 17:30 07/24/20 06:49 IVCONT Not Given .Q8H JM Ondansetron HCl 4 mg 07/23/20 14:43 Ondansetron Hcl 4 Mg/2 Ml Vial IVPUSH Q8H PRN Nausea Pantoprazole Sodium 40 mg 07/23/20 16:30 07/24/20 05:38 Pantoprazole Sodium 40 Mg/10 Ml Vial IVPUSH 40 mg BID@0630,1630 [facility] Administration Pharmacy Consult 1 each 07/23/20 07:45 Consult Rx Perform Med Rec MISCELLANE ONCE PRN Consult order Time Spent With Patient Time: Total time spent is greater than 50% in coordination of care (as documented) at patient's floor/unit and/or counseling patient: Time with patient: 15 - 24 minutes
[2020-07-24] MEDS: HYDROmorphone HCl 0.5 MG/0.5 ML SYRINGE IVPUSH ×2 (09:08→13:01)
[2020-07-24] MEDS: Buprenorphine HCL 2 MG TAB.SUBL 4 MG SUBLINGUAL ×2 (10:00→10:13)
--- NOTE | 2020-07-24 10:12 | HO.POSTANES ---
Post Anesthesia Evaluation Post Anesthesia Evaluation Vital Signs: Vital Signs Temp Pulse Resp BP Pulse Ox 07/24/20 10:00 130 H 125/66 97 07/24/20 09:08 20 07/24/20 09:00 131 H 17 121/65 99 07/24/20 07:59 98.5 F 119 H 15 88/65 L 98 07/24/20 07:00 123 H 24 H 124/75 97 07/24/20 05:48 83 20 117/48 L 99 07/24/20 05:00 97.9 F 85 22 H 128/53 L 100 07/24/20 03:00 92 20 127/52 L 100 07/24/20 02:00 85 22 H 135/66 99 07/24/20 01:00 85 16 129/63 100 07/24/20 00:11 97.6 F 87 22 H 141/68 H 100 07/23/20 23:07 84 21 H 127/49 L 100 Anesthesia: General Endotracheal-GETA Mental Status: Awake Pain Control: Satisfactory (Being managed by ICU) Nausea/Vomiting: None Hydration: Adequate Anesthesia-Related Issues: No Anes. Related Issues
--- NOTE | 2020-07-24 10:51 | PM.CCPN ---
Subjective Subjective Date of Service: 07/24/20 Interval History: A 70-year-old female with oxygen requiring COPD but also on a Suboxone program for previous opiate abuse awaken suddenly with abdominal pain clearly had free air noted in the abdominal CT scan and had a perforated viscus with considerable peritoneal soilage that was lavaged and repaired postoperative pain management because she took the Suboxone that morning consisted of maintaining propofol kept her intubated overnight did beautifully pressure support for 2 hours did beautifully with excellent tidal volume and she was successfully extubated this morning to a nasal cannula and pain control consisted of my ordering her home dose of the buprenorphine and p.r.n. use of Dilaudid and I spoke with Anesthesia Pain Management Physical Exam Vital Signs: Vital Signs: Last Vital Signs Temp 98.5 F 07/24/20 07:59 Pulse 130 H 07/24/20 10:00 Resp 20 07/24/20 09:08 BP 125/66 07/24/20 10:00 Pulse Ox 97 07/24/20 10:00 Body Mass Index 22.6 Const: Other: Alert and oriented x3 Pain somewhat controlled with the above regimen and skin basically intact no livedo no acrocyanosis Chest with diminished breath sounds bilaterally but no adventitious sounds Cardiac with no neck vein distension and has good bilateral carotid upstrokes and no gallops Abdomen of causes silent Objective Data Labs CBC & Chem 7: 07/24/20 05:18 07/24/20 05:18 Labs: Laboratory Results - last 24 hr 07/23/20 07/23/20 07/23/20 12:03 16:27 16:27 WBC 12.2 H RBC 4.31 Hgb 13.1 Hct 42.2 MCV 97.9 MCH 30.4 MCHC 31.0 RDW 14.6 Plt Count 346 D MPV 9.2 L Absolute Nucleated RBC 0.000 Nucleated RBC % (auto) 0.0 Sodium 145 Potassium 3.3 Chloride 113 H Carbon Dioxide 20 L Anion Gap 15 BUN 20 H Creatinine 1.63 H Estim Creat Clear Calc 24.6 Estimated GFR 31 Random Glucose 174 H Fasting Glucose Lactic Acid Fup @ 2Hr 1.9 Calcium 9.0 D Phosphorus 4.3 Magnesium 1.7 Urine Color Urine Appearance Urine pH Ur Specific [place] Urine Protein Urine Glucose (UA) Urine Ketones Urine Blood Urine Nitrite Ur Leukocyte Esterase Urine RBC Urine WBC Ur Squamous Epith Cells Ur Renal Epithelial Cell Amorphous Sediment Urine Bacteria Granular Casts 07/23/20 07/24/20 07/24/20 21:00 05:18 05:18 WBC 10.4 RBC 3.39 L D Hgb 10.0 L D Hct 32.8 L D MCV 96.8 MCH 29.5 MCHC 30.5 L RDW 14.6 Plt Count 274 MPV 9.5 Absolute Nucleated RBC 0.000 Nucleated RBC % (auto) 0.0 Sodium 142 Potassium 4.1 D Chloride 115 H Carbon Dioxide 19 L Anion Gap 12 BUN 19 H Creatinine 1.37 Estim Creat Clear Calc 29.2 Estimated GFR 38 Random Glucose Fasting Glucose 220 H Lactic Acid Fup @ 2Hr Calcium 7.8 L D Phosphorus Magnesium Urine Color YELLOW Urine Appearance CLEAR Urine pH 6.0 Ur Specific [place] 1.020 Urine Protein 1+ H Urine Glucose (UA) NEG Urine Ketones NEG Urine Blood 1+ H Urine Nitrite NEG Ur Leukocyte Esterase NEG Urine RBC 1-4 Urine WBC 1-4 Ur Squamous Epith Cells 1+ Ur Renal Epithelial Cell TRACE Amorphous Sediment 1+ Urine Bacteria TRACE Granular Casts 0-2 Microbiology Microbiology Results: Microbiology 07/23/20 08:25 Blood - Venous Blood Culture - Preliminary No growth after 24 hours. 07/23/20 08:35 Blood - Venous Blood Culture - Preliminary No growth after 24 hours. 07/23/20 00:00 Peritoneal Fluid Gram Stain - Final Progress Note: A&P Assessment and plan (1) COPD (chronic obstructive pulmonary disease): Status: Acute (2) Urinary tract infection: Status: Acute (3) Peritonitis: Status: Acute (4) History of cervical spinal surgery: Status: Acute (5) Abdominal pain: Status: Acute (6) CHRIS (acute kidney injury): Status: Acute (7) Acute duodenitis: Status: Acute (8) Acidosis, lactic: Status: Acute (9) Acute pancreatitis: Status: Acute (10) Bowel perforation: Status: Acute Assessment and Plan: So post extubation pain management and will continue breathing treatments titrate oxygen support the O2 saturation approximating 90% and keep NPO until signs of bowel patency Time Spent With Patient Time: Total time spent is greater than 50% in coordination of care (as documented) at patient's floor/unit and/or counseling patient: Total time spent with greater than 50% in coordination of care (as documented) at patient's floor/unit and/or counseling patient:: 35
[2020-07-24] MEDS: Albuterol/Iprat 2.5/0.5MG 3 ML AMPUL.NEB INHALE ×2 (12:07→15:44)
--- NOTE | 2020-07-24 13:57 | MHC.CM.PN ---
this interview was conducted through patient's son, komal, as she was too tired to participate. pt lives c her son in their home, she is on [place] o2 [facility]. pt also has vna visits provided by [facility]. her son is her BOILER COVERER through [employer]. she only walks very short distances in her home since she fell and injured her knee 3 mos ago. prior to that she was much more ambulatory albeit c portable o2 tank. her son very involved in her care, he grocery shops, cares for patient , cooks , transportation for pt, etc. we discussed that patient may benefit from STR at dc and this would become more clear as we move closer to DC. he said if she needed it then it would be o.k. but that we should talk c pt when she is more engaging. pt may be able to return home considering her svcs already in place and her baseline prior to this admission. dc plan is STR vs. home c all her prior svcs. cm to cont. to follow.
[2020-07-24] MEDS: KCl 40 mEq in 5% Dex/0.45% Sod 40 MEQ/1,000 ML IV.SOLN 125 MEQ IVCONT (15:17)
[2020-07-24] MEDS: HYDROmorphone HCl 0.5 MG/0.5 ML SYRINGE 1 MG IVPUSH ×2 (15:45→21:18)
[2020-07-24 18:37] LABS: Glucose, Whole Blood 143 mg/dL (60-115)
--- NOTE | 2020-07-24 20:26 | PC.NURSE ---
Addendum entered by Romeo Frausto RN 07/24/20 20:38: urine outputs were averaging 40-50 ccs /hour, then at 1700 had 200 ccs, and at 1800 323 ccs. Original Note: Assumed care at 0700. Patient was on propofol for sedation overnight, and was still intubated with 7.5 ett at 22 cm. Propofol held at 0705 per md, patient was able to be trialed on PSV and was following commands; was exercised, and was able to be extubated at 0845. Well tolerated, but tachycardia on monitor all day 130's as high as 145 during an episode of anxiety. Patient was found to be alert, oriented to person and place, and vague about situation, somewhat delerious ideation at times; disoriented to time. Patient is on 5 lpm home o2, but was able to be titrated to 3lpm as her SpO2 was in the 97-100% range on higher liter flows. She had one episode of subjective SOB, during which her RR was 18-20, and responded well to IV dilaudid, reported SOB resolved, MD aware. Incentive spirometry per Dr. Vaughn, patient achieving only 750 ccs volume. Patient continues on D5 1/2 ns with 40 meq kcl., and K was up to 4.1 this AM; patient is at risk for electrolyte abnormalities as she continues to be NPO and on low intermittent suction via NGT. Patient was seen by surgery today, and Dr. Vaughn had authorized a small amount of Ice chips, as patient is very hungry, but she did not tolerate ice chips, failed swallow eval, and is now NPO. POC was taken this evening and was unremarkable. Patient has abdominal incision midline to mery, Dr. Vaughn ok with waiting to change dressing another day, which is not stained. Patient with skin otherwise intact, L buttocks pink and blanchable. Patient has continuing pain issues, this morning patient had consented to another rectus sheath block with anethsthesia, but she then refused it as she said her pain was ok (5/10 abdominal pain, also c/o right hip pain), she was comfortable and did not need the intervention. pain of abdomen was later /10 Patient then was refusing her bupenorphine under the pretense she thought it caused her perforated ulcer, but she was educated per MD and consented to take her bupenorphine. Patient also was being treated with IV dilaudid 0.5 mg Q4hr prn, but she was asking for this early; MD was notified, and did increase dose to 1 mg Q4hr prn, Patient had this once at around 1530 with good effect for pain, but appears drowsy.
[2020-07-24] MEDS: Ketorolac Tromethamine 15 MG/ML VIAL IVPUSH (23:02)
[2020-07-25] VITALS (17 sets, daily range): BP systolic 117–159; BP diastolic 61–91; PULSE 97–136; RESP 12–26; TEMP 36.4–37.4; O2SAT 90–97
[2020-07-25] MEDS: KCl 40 mEq in 5% Dex/0.45% Sod 40 MEQ/1,000 ML IV.SOLN 125 MEQ IVCONT ×3 (02:32→16:40)
[2020-07-25] MEDS: Piperacillin Sodium/Tazobactam 2.25 GM in 0.9 % Sodium Chloride 50 ML IV ×4 (03:44→21:07)
[2020-07-25] MEDS: HYDROmorphone HCl 0.5 MG/0.5 ML SYRINGE 1 MG IVPUSH ×5 (03:45→19:52)
[2020-07-25] MEDS: Pantoprazole Sodium 40 MG/10 ML VIAL IVPUSH ×2 (05:30→15:57)
[2020-07-25 06:09] LABS: VBG Base Excess -5.6 mmol/L; VBG HCO3 18 mmol/L (22-26); VBG pCO2 31 mmHg; VBG pH 7.37 (7.32-7.43); VBG pO2 93 mmHg
[2020-07-25 06:32] LABS: MANUAL DIFF FLAG NO
[2020-07-25 06:32] LABS: Venous Blood Gas Refer to POC result
[2020-07-25 06:37] LABS: Basophils Percent Auto 0.1 % (0-2); Eosinophils Percent Auto 0.1 % (0-4); Hematocrit 30.1 % (37-47); Hemoglobin 9.4 g/dl (12.0-16.0); Imm Gran Abs Auto 0.06 X10*3/uL (0.00-0.03); Imm Gran Pct Auto 0.5 % (0.0-0.4); Lymphocytes Absolute Auto 1.1 X10*3/uL (1.2-4.9); Lymphocytes Percent Auto 9.4 % (20-40); Mean Corpuscular HGB Conc 31.2 g/dl (31.0-35.0); Mean Corpuscular Hemoglobin 30.6 pg (27.0-33.0); Mean Platelet Volume 9.9 fL (9.4-12.3); Monocytes Absolute Auto 0.5 X10*3/uL (0.1-1.2); Monocytes Percent Auto 4.6 % (2-11); Neutrophils Absolute Auto 9.6 X10*3/uL (2.0-8.3); Neutrophils Percent Auto 85.3 % (45-73); Platelet Count 317 X10*3/uL (160-400); Red Blood Count 3.07 X10*6/uL (4.20-5.50); Red Cell Distribution Width 15.2 % (11.0-16.0); White Blood Count 11.2 X10*3/uL (4.8-10.8)
[2020-07-25 06:56] LABS: INTERNATIONAL NORM RATIO 1.2 (0.9-1.1); Prothrombin Time 13.8 SEC (10.8-13.0)
[2020-07-25 06:59] LABS: Partial Thromboplastin Time 25.3 SEC (24.1-38.0)
[2020-07-25 07:07] LABS: Anion Gap 12 (12-20); Blood Urea Nitrogen 14 mg/dL (9-16); Calcium 8.2 mg/dL (8.4-10.2); Carbon Dioxide 20 mmol/L (22-29); Chloride 115 mmol/L (96-108); Creatinine Clr Calc Pharmacy 39.3; Estimated Glomerular Filt Rate 54; Glucose Random 141 mg/dL (60-115); Magnesium 1.6 mg/dL (1.6-2.6); Phosphorus 2.6 mg/dL (2.7-4.5); Potassium 4.8 mmol/L (3.3-5.1); Sodium 142 mmol/L (135-145)
[2020-07-25] MEDS: Albuterol/Iprat 2.5/0.5MG 3 ML AMPUL.NEB INHALE ×3 (12:36→20:32)
--- NOTE | 2020-07-25 14:45 | PM.PNGS ---
Subjective Subjective Date of Service: 07/25/20 <EDEN Joya - Last Filed: 07/25/20 14:55> 07/25/20 <Renan Barros MD - Last Filed: 07/25/20 15:17> Interval history: Patient was weaned of pressors and intubation and sent to the floor. No overnight events but complains of ongoing post op ABD pain. <EDEN Joya - Last Filed: 07/25/20 14:55> Physical Exam Vital Signs: Vital Signs: Last Vital Signs Temp 98.0 F 07/25/20 11:49 Pulse 106 H 07/25/20 12:36 Resp 22 H 07/25/20 11:49 BP 131/78 07/25/20 11:49 Pulse Ox 96 07/25/20 11:49 Body Mass Index 22.6 <EDEN Joya - Last Filed: 07/25/20 14:55> Const: Other: Appears uncomfortable <EDEN Joya - Last Filed: 07/25/20 14:55> Resp: Effort & Inspection: normal respiratory effort <EDEN Joya - Last Filed: 07/25/20 14:55> Cardio: Rate: tachycardic <EDEN Joya - Last Filed: 07/25/20 14:55> Heart sounds: S1 normal heart sound present and S2 normal heart sound present <EDEN Joya - Last Filed: 07/25/20 14:55> GI: Other: Appropriate post-op tenderness <EDEN Joya - Last Filed: 07/25/20 14:55> Skin: General skin exam: no rashes or lesions noted <EDEN Joya - Last Filed: 07/25/20 14:55> Progress Note: A&P Assessment and plan (1) Bowel perforation: Problem details: Status post omental patching of perforated peptic ulcer POD#2. Slight increase in WBC <EDEN Joya - Last Filed: 07/25/20 14:55> Status: Acute <EDEN Joya - Last Filed: 07/25/20 14:55> Assessment and Plan: Good urine output will d/c Dailey Pain management Keep NG tube in place Keep NPO for now Pain mgmt, add PRN Tordadol for breakthrough pain. IVF <EDEN Joya - Last Filed: 07/25/20 14:55> . General Surgery Attending - dAa Barros M.D. Patient was evaluated and examined at the bedside with Mr. Camron Hearn PA-C. I confirm above findings and plan as documented. Patient is c/o postop pain which is being addressed with IV pain meds. Otherwise she is stable. NGT 400 cc's today. Dailey still in, we will remove tomorrow. <Renan Barros MD - Last Filed: 07/25/20 15:17> Fall Risk Details Current Medications: Current Medications Generic Name Dose Route Start Last Admin Trade Name Freq PRN Reason Stop Dose Admin Acetaminophen 650 mg 07/23/20 19:29 Acetaminophen Supp 650 Mg Supp.Rect IA Q6H PRN Fever Albuterol/Ipratropium 3 ml 07/23/20 20:00 07/25/20 12:36 Albuterol/Iprat 2.5/0.5mg 3 Ml Ampul.Neb INHALE 3 ml RQ4H WHILE AWAKE JM Administration Buprenorphine HCl 4 mg 07/24/20 09:00 07/24/20 10:13 Buprenorphine Hcl 2 Mg Tab.Subl SUBLINGUAL 4 mg DAILY JM Administration Hydromorphone HCl 1 mg 07/24/20 15:31 07/25/20 11:53 Hydromorphone Hcl 0.5 Mg/0.5 Ml Syringe IVPUSH 1 mg Q4H PRN Administration Pain, Severe (Pain Scale 7-10) Piperacillin Sod/Tazobactam 50 mls @ 100 mls/hr 07/23/20 16:00 07/25/20 11:53 Sod 2.25 gm/ Sodium Chloride IV Infused Q6H JM Infusion Potassium Chloride/Dextrose/Sod Cl 40 meq in 1,000 mls @ 125 mls/hr 07/23/20 17:30 07/25/20 10:56 IVCONT 125 mls/hr .Q8H JM Administration Ketorolac Tromethamine 15 mg 07/25/20 14:34 Ketorolac Tromethamine 15 Mg/Ml Vial IVPUSH Q8H PRN Breakthrough Pain Ondansetron HCl 4 mg 07/23/20 14:43 Ondansetron Hcl 4 Mg/2 Ml Vial IVPUSH Q8H PRN Nausea Pantoprazole Sodium 40 mg 07/23/20 16:30 07/25/20 05:30 Pantoprazole Sodium 40 Mg/10 Ml Vial IVPUSH 40 mg BID@[id number] [facility] Administration Pharmacy Consult 1 each 07/23/20 07:45 Consult Rx Perform Med Rec MISCELLANE ONCE PRN Consult order <EDEN Joya - Last Filed: 07/25/20 14:55> Time Spent With Patient Time: Total time spent is greater than 50% in coordination of care (as documented) at patient's floor/unit and/or counseling patient: <EDEN Joya - Last Filed: 07/25/20 14:55> Time with patient: 15 - 24 minutes <Renan Barros MD - Last Filed: 07/25/20 15:17>
[2020-07-25] MEDS: 0.9 % Sodium Chloride 1,000 ML 100 ML IVCONT (16:02)
[2020-07-25] MEDS: 0.9 % Sodium Chloride Flush 3 ML SYRINGE IVFLUSH (16:10)
[2020-07-25] MEDS: Ketorolac Tromethamine 15 MG/ML VIAL IVPUSH (20:50)
[2020-07-26] VITALS (16 sets, daily range): BP systolic 124–184; BP diastolic 75–114; PULSE 85–140; RESP 16–24; TEMP 36.4–37.5; O2SAT 90–99
[2020-07-26] MEDS: HYDROmorphone HCl 0.5 MG/0.5 ML SYRINGE 1 MG IVPUSH ×2 (01:03→06:30)
[2020-07-26] MEDS: HYDROmorphone HCl 1 MG/ML SYRINGE IVPUSH (03:28)
[2020-07-26] MEDS: Ketorolac Tromethamine 15 MG/ML VIAL IVPUSH (04:21)
[2020-07-26] MEDS: Piperacillin Sodium/Tazobactam 2.25 GM in 0.9 % Sodium Chloride 50 ML IV ×4 (04:45→22:51)
[2020-07-26] MEDS: Pantoprazole Sodium 40 MG/10 ML VIAL IVPUSH ×2 (06:34→16:10)
[2020-07-26] MEDS: KCl 40 mEq in 5% Dex/0.45% Sod 40 MEQ/1,000 ML IV.SOLN 125 MEQ IVCONT (06:35)
--- NOTE | 2020-07-26 09:31 | P.PNGS_ITS ---
Subjective Subjective Date of Service: 07/26/20 <EDEN Joya - Last Filed: 07/26/20 11:33> 07/26/20 <Renan Barros MD - Last Filed: 07/26/20 15:00> Interval history: Patient evaluated at bedside, complaining of ongoing pain. Asks for more pain medication. Denies fevers, chill, N/V. <EDEN Joya - Last Filed: 07/26/20 11:33> Physical Exam Vital Signs: Vital Signs: Last Vital Signs Temp 98.6 F 07/26/20 07:51 Pulse 134 H 07/26/20 07:51 Resp 20 07/26/20 07:51 BP 145/90 H 07/26/20 07:51 Pulse Ox 93 07/26/20 07:51 Body Mass Index 22.6 <EDEN Joya - Last Filed: 07/26/20 11:33> Const: General: alert, awake and in distress <EDEN Joya - Last Filed: 07/26/20 11:33> Resp: Effort & Inspection: normal respiratory effort and able to speak in complete sentences <EDEN Joya - Last Filed: 07/26/20 11:33> Cardio: Rate: tachycardic <EDEN Joya - Last Filed: 07/26/20 11:33> GI: Other: NGT with about 100 ccs drainage. <EDEN Joya - Last Filed: 07/26/20 11:33> Inspection: Yes incision (clean and dry, no periwound erythema or induration) <EDEN Joya - Last Filed: 07/26/20 11:33> Palpation (GI): Soft to palpation and Tenderness to palpation present (GI) (appropriate post-op tenderness. ) <EDEN Joya Last Filed: 07/26/20 11:33> : Other: Dailey present, good urine output in bag <EDEN Joya Last Filed: 07/26/20 11:33> Skin: General skin exam: no rashes or lesions noted <EDEN Joya Last Filed: 07/26/20 11:33> Extrem: General: Yes no calf tenderness <EDEN Joya - Last Filed: 07/26/20 11:33> Progress Note: A&P Assessment and plan (1) Bowel perforation: Status: Acute <EDEN Joya - Last Filed: 07/26/20 11:33> Assessment and Plan: Will adjust pain medication D/C Dailey, encourage OOB CBC and BMP Continue IVF Continue NGT Will consult medicine for her increased need of supplement 02 and sats drop to the 80's <EDEN Joya - Last Filed: 07/26/20 11:33> . General Surgery Attending - Ada Barros M.D. Patient was evaluated and examined at the bedside with Mr. Camron Hearn PA-C. I confirm above findings and plan as documented. Postoperative surgically, she is stable and doing well. But she has c/o pain, which despite IV analgesic, she states she still hurts. She is refusing removal of Dailey and is not getting out of bed. No flatus. Will continue IV analgesic as appropriate. <Renan Barros MD - Last Filed: 07/26/20 15:00> Fall Risk Details Current Medications: Current Medications Generic Name Dose Route Start Last Admin Trade Name Freq PRN Reason Stop Dose Admin Acetaminophen 650 mg 07/23/20 19:29 Acetaminophen Supp 650 Mg Supp.Rect MD Q6H PRN Fever Albuterol/Ipratropium 3 ml 07/23/20 20:00 07/26/20 07:47 Albuterol/Iprat 2.5/0.5mg 3 Ml Ampul.Neb INHALE Not Given RQ4H WHILE AWAKE [facility] Buprenorphine HCl 4 mg 07/24/20 09:00 07/26/20 08:13 Buprenorphine Hcl 2 Mg Tab.Subl SUBLINGUAL Not Given DAILY JM Hydromorphone HCl 1 mg 07/24/20 15:31 07/26/20 06:30 Hydromorphone Hcl 0.5 Mg/0.5 Ml Syringe IVPUSH 1 mg Q4H PRN Administration Pain, Severe (Pain Scale 7-10) Piperacillin Sod/Tazobactam 50 mls @ 100 mls/hr 07/23/20 16:00 07/26/20 05:37 Sod 2.25 gm/ Sodium Chloride IV Infused Q6H JM Infusion Potassium Chloride/Dextrose/Sod Cl 40 meq in 1,000 mls @ 125 mls/hr 07/23/20 17:30 07/26/20 06:35 IVCONT 125 mls/hr .Q8H JM Administration Ketorolac Tromethamine 15 mg 07/25/20 14:34 07/26/20 04:21 Ketorolac Tromethamine 15 Mg/Ml Vial IVPUSH 15 mg Q8H PRN Administration Breakthrough Pain Ondansetron HCl 4 mg 07/23/20 14:43 Ondansetron Hcl 4 Mg/2 Ml Vial IVPUSH Q8H PRN Nausea Pantoprazole Sodium 40 mg 07/23/20 16:30 07/26/20 06:34 Pantoprazole Sodium 40 Mg/10 Ml Vial IVPUSH 40 mg BID@[id number],1630 [facility] Administration Pharmacy Consult 1 each 07/23/20 07:45 Consult Rx Perform Med Rec MISCELLANE ONCE PRN Consult order Sodium Chloride 3 ml 07/25/20 16:00 07/26/20 08:13 0.9 % Sodium Chloride Flush 3 Ml Syringe IVFLUSH Not Given QSHIFT [facility] <EDEN Joya - Last Filed: 07/26/20 11:33> Time Spent With Patient Time: Total time spent is greater than 50% in coordination of care (as documented) at patient's floor/unit and/or counseling patient: <EDEN Joya - Last Filed: 07/26/20 11:33> Time with patient: 15 - 24 minutes <Renan Barros MD - Last Filed: 07/26/20 15:00>
[2020-07-26 10:04] LABS: MANUAL DIFF FLAG NO
[2020-07-26 10:05] LABS: Basophils Percent Auto 0.2 % (0-2); Eosinophils Absolute Auto 0.1 X10*3/uL (0.0-0.4); Eosinophils Percent Auto 0.8 % (0-4); Hematocrit 35.3 % (37-47); Hemoglobin 10.9 g/dl (12.0-16.0); Imm Gran Abs Auto 0.07 X10*3/uL (0.00-0.03); Imm Gran Pct Auto 0.4 % (0.0-0.4); Lymphocytes Absolute Auto 1.3 X10*3/uL (1.2-4.9); Mean Corpuscular HGB Conc 30.9 g/dl (31.0-35.0); Mean Corpuscular Hemoglobin 30.1 pg (27.0-33.0); Mean Corpuscular Volume 97.5 fL (80-98); Mean Platelet Volume 9.2 fL (9.4-12.3); Monocytes Absolute Auto 0.6 X10*3/uL (0.1-1.2); Monocytes Percent Auto 3.9 % (2-11); Neutrophils Absolute Auto 13.5 X10*3/uL (2.0-8.3); Neutrophils Percent Auto 86.7 % (45-73); Platelet Count 394 X10*3/uL (160-400); Red Blood Count 3.62 X10*6/uL (4.20-5.50); Red Cell Distribution Width 14.6 % (11.0-16.0); White Blood Count 15.6 X10*3/uL (4.8-10.8)
[2020-07-26] MEDS: HYDROmorphone HCl 0.5 MG/0.5 ML SYRINGE 2 MG IVPUSH ×2 (10:32→16:03)
[2020-07-26 10:33] LABS: Anion Gap 18 (12-20); Blood Urea Nitrogen 9 mg/dL (9-16); Carbon Dioxide 20 mmol/L (22-29); Chloride 106 mmol/L (96-108); Creatinine Clr Calc Pharmacy 49.4; Estimated Glomerular Filt Rate > 60; Glucose Random 128 mg/dL (60-115); Potassium 4.8 mmol/L (3.3-5.1); Sodium 139 mmol/L (135-145)
[2020-07-26 10:39] LABS: Calcium 9.2 mg/dL (8.4-10.2)
--- NOTE | 2020-07-26 11:24 | ECG_ITS ---
Test Reason : tachycardia Blood Pressure : / mmHG Vent. Rate : 139 BPM Atrial Rate : 139 BPM P-R Int : 126 ms QRS Dur : 070 ms QT Int : 270 ms P-R-T Axes : 062 070 090 degrees QTc Int : 410 ms Sinus tachycardia Septal infarct , age undetermined Abnormal ECG When compared to the previous EKG of 12 jun 2020, ventricular rate higher. Referred By: Eli Cee Electronically Signed By:KYREE BLACKWELL
--- NOTE | 2020-07-26 11:32 | P.PNIM_ITS ---
Subjective Subjective Date of Service: 07/26/20 <EDEN Bettencourt - Last Filed: 07/26/20 11:59> 07/26/20 <Anson Soto MD - Last Filed: 07/26/20 16:51> Interval History: follow up surgical consult patient was admitted to the surgical service 07/23 after presenting to the ED with abdominal pain, workup concerning for perforated viscus. She underwent ex lap and was found to have perforated pyloric channel ulcer which was repaired with trey patch. She was kept intubated following surgery and watched in the ICU for pain control and underlying COPD. ICU course was complicated by brief episode of hypertension requiring nicardipine drip. The following morning 07/24 and downgraded to [facility]. She continues to have significant pain. Has been tachycardic, although is asymptomatic. She denies fever, chills, palpitations or cough. She does reports sore throat, irritation from NGT and shortness of breath. <EDEN Bettencourt - Last Filed: 07/26/20 11:59> Review of Systems Review of Systems: Yes all other systems are reviewed and are negative <EDEN Bettencourt - Last Filed: 07/26/20 11:59> Constitutional Constitutional: Denies chills and Denies fever(s) <EDEN Bettencourt - Last Filed: 07/26/20 11:59> Cardiovascular Cardiovascular: Denies chest pain and Reports dyspnea <EDEN Bettencourt - Last Filed: 07/26/20 11:59> Respiratory Respiratory: Denies cough and Reports dyspnea <EDEN Bettencourt - Last Filed: 07/26/20 11:59> Gastrointestinal Gastrointestinal: Reports abdominal pain <EDEN Bettencourt - Last Filed: 07/26/20 11:59> Physical Exam Vital Signs: Vital Signs: Last Vital Signs Temp 98.6 F 07/26/20 07:51 Pulse 134 H 07/26/20 07:51 Resp 20 07/26/20 07:51 BP 145/90 H 07/26/20 07:51 Pulse Ox 93 07/26/20 07:51 Body Mass Index 22.6 <EDEN Bettencourt - Last Filed: 07/26/20 11:59> Const: Other: moaning frequently unless engaged in conversation during which time she is able to answer questions appropriately and speak in full and complete sentences <EDEN Bettencourt - Last Filed: 07/26/20 11:59> General: alert and awake <EDEN Bettencourt - Last Filed: 07/26/20 11:59> Nutritional Appearance: thin <EDEN Bettencourt - Last Filed: 07/26/20 11:59> Orientation/consciousness: patient oriented x3 <EDEN Bettencourt - Last Filed: 07/26/20 11:59> HENMT: Other: NGT present with about 100ccs of drainage <EDEN Bettencourt - Last Filed: 07/26/20 11:59> Head: Yes normocephalic and Yes atraumatic <EDEN Bettencourt - Last Filed: 07/26/20 11:59> Eyes: Sclerae: sclerae normal <EDEN Bettencourt - Last Filed: 07/26/20 11:59> Chest: Chest palpation & inspection: normal inspection of the chest <EDEN Bettencourt - Last Filed: 07/26/20 11:59> Resp: Other: somewhat diminished, but clear b/l; no wheezes, or rales <EDEN Bettencourt - Last Filed: 07/26/20 11:59> Effort & Inspection: normal respiratory effort and no respiratory distress <EDEN Bettencourt - Last Filed: 07/26/20 11:59> Cardio: Rate: tachycardic <EDEN Bettencourt - Last Filed: 07/26/20 11:59> Heart sounds: S1 normal heart sound present and S2 normal heart sound present <EDEN Bettencourt - Last Filed: 07/26/20 11:59> GI: Other: soft, non-distended. incision clean, mery in place, no surrounding erythema <EDEN Bettencourt - Last Filed: 07/26/20 11:59> : Other: goldman present <EDEN Bettencourt - Last Filed: 07/26/20 11:59> Skin: General skin exam: no rashes or lesions noted <EDEN Bettencourt Last Filed: 07/26/20 11:59> Neuro: General: patient oriented x3 <EDEN Bettencourt Last Filed: 07/26/20 11:59> Cranial nerves: Yes CN's II-XII intact bilaterally and Yes Bilaterally intact EOM present <EDEN Bettencourt Last Filed: 07/26/20 11:59> Extrem: Other: mechanical devices in place <EDEN Bettencourt Last Filed: 07/26/20 11:59> Objective Data Current Medications Generic Name Dose Route Start Last Admin Trade Name Freq PRN Reason Stop Dose Admin Acetaminophen 650 mg 07/23/20 19:29 Acetaminophen Supp 650 Mg Supp.Rect AL Q6H PRN Fever Albuterol/Ipratropium 3 ml 07/23/20 20:00 07/26/20 11:11 Albuterol/Iprat 2.5/0.5mg 3 Ml Ampul.Neb INHALE Not Given RQ4H WHILE AWAKE JM Benzocaine 1 lozenge 07/26/20 11:31 Throat Lozenge, Medicated Lozenge MUCOUS MEM Q2H PRN Sore Throat Buprenorphine HCl 4 mg 07/24/20 09:00 07/26/20 08:13 Buprenorphine Hcl 2 Mg Tab.Subl SUBLINGUAL Not Given DAILY JM Hydromorphone HCl 2 mg 07/26/20 09:50 07/26/20 10:32 Hydromorphone Hcl 0.5 Mg/0.5 Ml Syringe IVPUSH 2 mg Q4H PRN Administration Pain, Severe (Pain Scale 7-10) Piperacillin Sod/Tazobactam 50 mls @ 100 mls/hr 07/23/20 16:00 07/26/20 11:28 Sod 2.25 gm/ Sodium Chloride IV Infused Q6H JM Infusion Potassium Chloride/Dextrose/Sod Cl 40 meq in 1,000 mls @ 125 mls/hr 07/23/20 17:30 07/26/20 06:35 IVCONT 125 mls/hr .Q8H JM Administration Acetaminophen 1,000 mg in 100 mls @ 400 mls/hr 07/26/20 11:27 Ofirmev IV 07/26/20 11:41 ONCE ONE Ondansetron HCl 4 mg 07/23/20 14:43 Ondansetron Hcl 4 Mg/2 Ml Vial IVPUSH Q8H PRN Nausea Pantoprazole Sodium 40 mg 07/23/20 16:30 07/26/20 06:34 Pantoprazole Sodium 40 Mg/10 Ml Vial IVPUSH 40 mg BID@0630,1630 [facility] Administration Pharmacy Consult 1 each 07/23/20 07:45 Consult Rx Perform Med Rec MISCELLANE ONCE PRN Consult order Sodium Chloride 3 ml 07/25/20 16:00 07/26/20 08:13 0.9 % Sodium Chloride Flush 3 Ml Syringe IVFLUSH Not Given QSHIFT [facility] <EDEN Bettencourt - Last Filed: 07/26/20 11:59> Labs CBC & Chem 7: : 07/26/20 09:52 07/26/20 09:52 <EDEN Bettencourt - Last Filed: 07/26/20 11:59> Microbiology Microbiology Results: Microbiology 07/23/20 00:00 Peritoneal Fluid Gram Stain - Final 07/23/20 00:00 Peritoneal Fluid Routine Culture - Final No growth after 2 days 07/23/20 00:00 Peritoneal Fluid Anaerobic Culture - Preliminary No growth to date. 07/23/20 08:25 Blood - Venous Blood Culture - Preliminary No growth after 48 hours. 07/23/20 08:35 Blood - Venous Blood Culture - Preliminary No growth after 48 hours. <EDEN Bettencourt - Last Filed: 07/26/20 11:59> Assessment and Plan (1) Bowel perforation: Status: Acute <EDEN Bettencourt - Last Filed: 07/26/20 11:59> (2) Chronic respiratory failure: Status: Acute <EDEN Bettencourt - Last Filed: 07/26/20 11:59> Assessment and Plan: This is a 70 year old female with remote history of opiate abuse on suboxone, COPD/chronic respiratory failure on supplemental o2, HTN who presented with abdominal pain found to have perforated viscus s/p omental patching of perforated peptic ulcer course complicated by uncontrolled pain. Status post omental patching of perforated peptic ulcer POD#3. h/o opiate abuse, on suboxone, making post-surgical pain difficult to manage -continue current dose of dilaudid, would avoid toradol in light of PUD. Will trial IV tylenol -on IV zosyn -management per surgical team Tachycardia Appears sinus on monitor, will get EKG to confirm. Likely r/t uncontrolled pain. H/H stable -follow up ekg chronic respiratory failure reports being on 5L home o2 -goal o2 90-92% avoid over oxygenation -continue breathing treatments Mood appears somewhat anxious which may be contributing to tachycardia/overall distress -will start low dose IV ativan -monitor for excessive sedation HTN BP uncontrolled, likely in part due to pain on norvasc at home -will start IV lopressor -monitor BP closely h/o opiate abuse -continue suboxone PUD -IV PPI CHRIS present on admission. Resolved dvt ppx - per surgery Attending: Dr. Soto <EDEN Bettencourt - Last Filed: 07/26/20 11:59>
--- NOTE | 2020-07-26 11:42 | P.EN_ITS ---
Event Note Date of Service: 07/26/20 Event Note: Patient seen examined with APC at bedside chart reviewed patient a dmitted surgery for perforated peptic ulcer status post omental patching postoperative day 3 Medicine was consulted due to persistent intractable pain, hypoxia and tachycardia On examination patient awake alert does not appear to be in acute distress but appears anxious morning due to pain Lungs clear to auscultation antibiotic Heart tachy regular Abdomen soft tender to palpation bowel sounds audible Extremities no edema Neuro nonfocal Assessment and plan Status post abdominal surgery postoperative day 3 continue IV Dilaudid add IV Tylenol, add IV Ativan since patient was on mirtazepine at home currently on hold Sinus tachycardia and hypertension home meds are on hold therefore will give IV Lopressor 2.5 q.6 hours Chronic respiratory failure on home oxygen will increase FiO2 to 4 L, add in centive spirometry out of bed to chair, obtain chest x-ray and follow clinical course closely. Agree with treatment plan as per APC.
[2020-07-26 12:46] LABS: TSH reflex Free T4 0.31 uIU/mL (0.32-4.0)
[2020-07-26] MEDS: LORazepam 2 MG/ML VIAL 0.25 MG IVPUSH ×3 (12:51→23:03)
[2020-07-26] MEDS: Metoprolol Tartrate 5 MG/5 ML VIAL 2.5 MG IVPUSH ×3 (12:51→23:31)
[2020-07-26 13:19] LABS: Free T4 (Free Thyroxine) 1.02 ng/dL (0.71-1.85)
[2020-07-26] MEDS: 0.9 % Sodium Chloride Flush 3 ML SYRINGE IVFLUSH ×2 (16:11→21:50)
--- NOTE | 2020-07-26 16:33 | PC.NURSE ---
Patient very anxious. Moaning due to pain per patient. Started hyperventilating. Sats 88% on 2L. Stating she can't breathe and skin clammy. Tachycardic 130's-140's. ordered IV tylenol x 1, IV ativan, IV push metoprolol. After interventions, patient rested quietly for 2 hours. Reported she felt more comfortable and the tylenol helped her pain. HR 110's. o2 sat 96% on 4L.
[2020-07-26] MEDS: Lactated Ringers 1,000 ML 100 ML IVCONT (17:18)
--- NOTE | 2020-07-26 20:49 | PC.NURSE ---
patient very reassessed, ,when RN came to her room ,the NG tube was found in the bed .
--- NOTE | 2020-07-26 21:10 | PC.NURSE ---
General surgery called ISHAN spaulding notified EDEN Jones regarding NGtube removal by the patient . Pt removed the NG tube accidentally . The output from NGtube is 300 ml light green liquids since last night till 9 pm today. Per General surgery: keep NGtube out at this time, monitor patient for nausea,vomiting,increased abdominal pain. Call General Surgery if pt starts having the n/v increased pain. May remove goldman cath chelly. Abdomen is soft , hypoactive bs, incision dry and intact,emry intact, no drainage
[2020-07-26] MEDS: HYDROmorphone HCl 2 MG/ML VIAL IVPUSH (21:50)
--- NOTE | 2020-07-26 22:58 | PC.NURSE ---
goldman cath removed at 10:30 pm
[2020-07-27] VITALS (19 sets, daily range): BP systolic 126–158; BP diastolic 61–107; PULSE 92–144; RESP 16–24; TEMP 36.3–37.6; O2SAT 94–128
[2020-07-27] MEDS: HYDROmorphone HCl 1 MG/ML SYRINGE IVPUSH (00:20)
[2020-07-27] MEDS: LORazepam 2 MG/ML VIAL 0.25 MG IVPUSH ×3 (02:54→22:59)
[2020-07-27] MEDS: Piperacillin Sodium/Tazobactam 2.25 GM in 0.9 % Sodium Chloride 50 ML IV ×4 (04:07→21:14)
[2020-07-27] MEDS: Lactated Ringers 1,000 ML 100 ML IVCONT ×2 (04:08→14:07)
[2020-07-27] MEDS: Metoprolol Tartrate 5 MG/5 ML VIAL 2.5 MG IVPUSH ×4 (05:16→22:59)
[2020-07-27] MEDS: 0.9 % Sodium Chloride Flush 3 ML SYRINGE IVFLUSH ×2 (07:22→21:14)
[2020-07-27] MEDS: HYDROmorphone HCl 2 MG/ML VIAL IVPUSH ×5 (07:22→21:12)
[2020-07-27] MEDS: Albuterol/Iprat 2.5/0.5MG 3 ML AMPUL.NEB INHALE ×3 (07:55→19:52)
--- NOTE | 2020-07-27 08:18 | PM.PNGS ---
Subjective Subjective Date of Service: 07/27/20 Interval history: Asking for pain medications Pulled out her NG tube last night No vomiting reported Difficult historian Physical Exam Vital Signs: Vital Signs: Last Vital Signs Temp 99.7 F 07/27/20 07:29 Pulse 110 H 07/27/20 07:57 Resp 22 H 07/27/20 07:29 BP 144/107 H 07/27/20 07:29 Pulse Ox 96 07/27/20 07:29 Body Mass Index 22.6 Laboratory Results - last 24 hr 07/26/20 07/26/20 09:52 09:52 WBC 15.6 H RBC 3.62 L Hgb 10.9 L Hct 35.3 L MCV 97.5 MCH 30.1 MCHC 30.9 L RDW 14.6 Plt Count 394 MPV 9.2 L Immature Gran % (A uto) 0.4 Neut % (Auto) 86.7 H Lymph % (Auto) 8.0 L [place] % (Auto) 3.9 Eos % (Auto) 0.8 Baso % (Auto) 0.2 Lymph # (Auto) 1.3 [place] # (Auto) 0.6 Eos # (Auto) 0.1 Baso # (Auto) 0.0 Abs Immat Gran (au to) 0.07 H Absolute Neuts (au to) 13.5 H Absolute Nucleated RBC 0.000 Nucleated RBC % (a uto) 0.0 Sodium 139 Potassium 4.8 Chloride 106 Carbon Dioxide 20 L Anion Gap 18 BUN 9 Creatinine 0.81 Estim Creat Clear Calc 49.4 Estimated GFR > 60 Random Glucose 128 H Calcium 9.2 D TSH 0.31 L Free T4 1.02 Const: General: comfortable and no acute distress Resp: Effort & Inspection: normal respiratory effort Cardio: Rhythm: regular rhythm GI: Other: Incision clean, with appropriate tenderness Palpation (GI): Soft to palpation, not firm and no guarding Progress Note: A&P Assessment and plan (1) Perforated chronic peptic ulcer: Status: Acute Assessment and Plan: Status post omental patch Clinically doing well she pulled out her NG tube last night Pain management - she has history of chronic narcotic use Trial of clear liquids today appreciate Hospitalist ffup Fall Risk Details Current Medications: Current Medications Generic Name Dose Route Start Last Admin Trade Name Freq PRN Reason Stop Dose Admin Albuterol/Ipratropium 3 ml 07/23/20 20:00 07/27/20 07:55 Albuterol/Iprat 2.5/0.5mg 3 Ml Ampul.Neb INHALE 3 ml RQ4H WHILE AWAKE JM Administration Benzocaine 1 lozenge 07/26/20 11:31 Throat Lozenge, Medicated Lozenge MUCOUS MEM Q2H PRN Sore Throat Buprenorphine HCl 4 mg 07/24/20 09:00 07/27/20 07:25 Buprenorphine Hcl 2 Mg Tab.Subl SUBLINGUAL Not Given DAILY JM Hydromorphone HCl 2 mg 07/26/20 16:01 07/27/20 07:22 Hydromorphone Hcl 2 Mg/Ml Vial IVPUSH 2 mg Q4H PRN Administration Pain, Severe (Pain Scale 7-10) Piperacillin Sod/Tazobactam 50 mls @ 100 mls/hr 07/23/20 16:00 07/27/20 04:53 Sod 2.25 gm/ Sodium Chloride IV Infused Q6H JM Infusion Lactated Ringer's 1,000 mls @ 100 mls/hr 07/26/20 16:15 07/27/20 04:08 Lr IVCONT 100 mls/hr .Q10H JM Administration Acetaminophen 1,000 mg in 100 mls @ 400 mls/hr 07/26/20 18:15 07/27/20 05:51 Ofirmev IV Infused Q6H JM Infusion Lorazepam 0.25 mg 07/26/20 11:46 07/26/20 23:03 Lorazepam 2 Mg/Ml Vial IVPUSH 0.25 mg Q6H PRN Administration Anxiety Metoprolol Tartrate 2.5 mg 07/26/20 12:00 07/27/20 05:16 Metoprolol Tartrate 5 Mg/5 Ml Vial IVPUSH 2.5 mg Q6H JM Administration Ondansetron HCl 4 mg 07/23/20 14:43 Ondansetron Hcl 4 Mg/2 Ml Vial IVPUSH Q8H PRN Nausea Pharmacy Consult 1 each 07/23/20 07:45 Consult Rx Perform Med Rec MISCELLANE ONCE PRN Consult order Sodium Chloride 3 ml 07/25/20 16:00 07/27/20 07:22 0.9 % Sodium Chloride Flush 3 Ml Syringe IVFLUSH 3 ml QSHIFT JM Administration Time Spent With Patient Time: Total time spent is greater than 50% in coordination of care (as documented) at patient's floor/unit and/or counseling patient: Time with patient: 25 - 35 minutes
--- NOTE | 2020-07-27 10:13 | MHC.SLORD ---
Speech Language Pathology Order Status: Patient was seen for bedside dysphagia evaluation on 07/25/20 and was recommended NPO due to overt s/s of aspiration. SCHOOL PSYCHOMETRIST spoke with RN this morning, who reports that patient no longer requires suctioning. Patient pulled out her NG tube last night at 9pm and was placed on a clear liquid diet. SCHOOL PSYCHOMETRIST attempted to see patient for PO trials this morning to determine safest diet. Patient refused to participate. Patient cursed and swatted at the clinician. SCHOOL PSYCHOMETRIST was unable to evaluate patient. Will re-attempt tomorrow morning.
--- NOTE | 2020-07-27 11:19 | MHC.CM.PN ---
Patient does not appear ready for dc (IV LOPRESSOR TODAY, IV ACETAMINOPHEN, IV Zosyn, IV Dilaudid, IV Ativan yesterday). Home vs STR is the goal for dc and CM will continue to follow.
--- NOTE | 2020-07-27 11:28 | P.PNIM_ITS ---
Subjective Subjective Date of Service: 07/27/20 Interval History: Patient demanding for more pain medication asking for tramadol keeps moaning, no nausea vomiting since pulled out NG last night, wants to eat, BP and pulse remains elevated. ROS General no headache, no dizziness ,no fever chills. CVS no chest pain, no palpitation. Respiratory no cough, no sob. Gastrointestinal abdominal pain Physical Exam Vital Signs: Vital Signs: Last Vital Signs Temp 99.1 F 07/27/20 11:14 Pulse 120 H 07/27/20 11:14 Resp 20 07/27/20 11:14 BP 126/72 07/27/20 11:14 Pulse Ox 98 07/27/20 11:14 Body Mass Index 22.6 General awake alert keeps moaning asking for pain medication, does not appear to be in acute distress. Neck supple no JVD. CVS regular rate rhythm, Respiratory lungs clear to auscultation, no respiratory distress, no wheeze, no rhonchi. Gastrointestinal abdomen soft, tender to palpation, bowel sounds audible, no guarding , no rigidity. Extremities no edema. Neuro nonfocal,moving all 4 extremity speech clear. Skin no rash Objective Data Current Medications Generic Name Dose Route Start Last Admin Trade Name Freq PRN Reason Stop Dose Admin Albuterol/Ipratropium 3 ml 07/23/20 20:00 07/27/20 11:27 Albuterol/Iprat 2.5/0.5mg 3 Ml Ampul.Neb INHALE 3 ml RQ4H WHILE AWAKE JM Administration Benzocaine 1 lozenge 07/26/20 11:31 Throat Lozenge, Medicated Lozenge MUCOUS MEM Q2H PRN Sore Throat Hydromorphone HCl 2 mg 07/27/20 09:47 07/27/20 10:17 Hydromorphone Hcl 2 Mg/Ml Vial IVPUSH 2 mg Q3H PRN Administration Pain, Severe (Pain Scale 7-10) Piperacillin Sod/Tazobactam 50 mls @ 100 mls/hr 07/23/20 16:00 07/27/20 11:09 Sod 2.25 gm/ Sodium Chloride IV Infused Q6H JM Infusion Lactated Ringer's 1,000 mls @ 100 mls/hr 07/26/20 16:15 07/27/20 04:08 Lr IVCONT 100 mls/hr .Q10H [facility] Administration Acetaminophen 1,000 mg in 100 mls @ 400 mls/hr 07/26/20 18:15 07/27/20 05:51 Ofirmev IV Infused Q6H [facility] Infusion Lorazepam 0.25 mg 07/26/20 11:46 07/27/20 09:08 Lorazepam 2 Mg/Ml Vial IVPUSH 0.25 mg Q6H PRN Administration Anxiety Metoprolol Tartrate 2.5 mg 07/26/20 12:00 07/27/20 05:16 Metoprolol Tartrate 5 Mg/5 Ml Vial IVPUSH 2.5 mg Q6H JM Administration Ondansetron HCl 4 mg 07/23/20 14:43 Ondansetron Hcl 4 Mg/2 Ml Vial IVPUSH Q8H PRN Nausea Pantoprazole Sodium 40 mg 07/27/20 16:30 Pantoprazole Sodium 40 Mg/10 Ml Vial IVPUSH BID@0630,1630 [facility] Pharmacy Consult 1 each 07/23/20 07:45 Consult Rx Perform Med Rec MISCELLANE ONCE PRN Consult order Sodium Chloride 3 ml 07/25/20 16:00 07/27/20 07:22 0.9 % Sodium Chloride Flush 3 Ml Syringe IVFLUSH 3 ml QSHIFT [facility] Administration Tiotropium [place] 1 puff 07/28/20 08:00 Tiotropium [place] 18 Mcg Cap.W.Dev INHALE RDAILY [facility] Labs CBC & Chem 7: 07/26/20 09:52 07/26/20 09:52 Microbiology Microbiology Results: Microbiology 07/23/20 00:00 Peritoneal Fluid Gram Stain - Final 07/23/20 00:00 Peritoneal Fluid Routine Culture - Final No growth after 2 days 07/23/20 00:00 Peritoneal Fluid Anaerobic Culture - Preliminary No growth to date. 07/23/20 08:25 Blood - Venous Blood Culture - Preliminary No growth after 48 hours. 07/23/20 08:35 Blood - Venous Blood Culture - Preliminary No growth after 48 hours. Assessment and Plan (1) Intractable abdominal pain: Status: Acute (2) Opioid use disorder: Status: Acute (3) Perforated chronic peptic ulcer: Status: Acute (4) Chronic respiratory failure: Status: Acute (5) COPD (chronic obstructive pulmonary disease): Status: Acute (6) Hypertension: Status: Acute Assessment and Plan: 70 year old female with remote history of opiate abuse on suboxone, COPD/chronic respiratory failure on supplemental o2, HTN who presented with abdominal pain found to have perforated viscus s/p omental patching of perforated peptic ulcer course complicated by uncontrolled pain. Status post omental patching of perforated peptic ulcer POD#4/now in intractable abdominal pain. h/o opiate abuse, on suboxone at home, making post-surgical pain difficult to m anage Will increase dose of Dilaudid 2 mg every 3 hours, continue IV Tylenol schedule started yesterday, DC Suboxone Will resume IV Protonix for GI prophylaxis, continue on IV zosyn management per surgical team, patient started on clear liquid diet, DC IV fluids once by mouth intake is stable. Tachycardia/hypertension likely due to opiate withdrawal pain EKG shows sinus tach, no ischemia, hematocrit stable Since unable to take by mouth medication patient placed on IV Lopressor in place of by mouth amlodipine that she takes at home chronic respiratory failure reports being on 5L home o2, goal o2 90-92% avoid over oxygenation continue breathing treatments Mood appears somewhat anxious which may be contributing to tachycardia/overall distress Continue low dose IV ativan History of opiate abuse On Suboxone at home PUD Will resume IV PPI CHRIS present on admission. Resolved dvt ppx - per surgery, will add compression boots.
[2020-07-27] MEDS: Pantoprazole Sodium 40 MG/10 ML VIAL IVPUSH (15:50)
[2020-07-28] VITALS (8 sets, daily range): BP systolic 142–167; BP diastolic 76–90; PULSE 85–100; RESP 17–19; TEMP 36–37; O2SAT 97–99
[2020-07-28] MEDS: Piperacillin Sodium/Tazobactam 2.25 GM in 0.9 % Sodium Chloride 50 ML IV ×4 (02:51→22:26)
[2020-07-28] MEDS: HYDROmorphone HCl 2 MG/ML VIAL IVPUSH (02:51)
[2020-07-28] MEDS: Lactated Ringers 1,000 ML 100 ML IVCONT ×2 (02:54→08:18)
[2020-07-28] MEDS: Pantoprazole Sodium 40 MG/10 ML VIAL IVPUSH (04:58)
[2020-07-28] MEDS: LORazepam 2 MG/ML VIAL 0.25 MG IVPUSH (04:58)
[2020-07-28] MEDS: Metoprolol Tartrate 5 MG/5 ML VIAL 2.5 MG IVPUSH (04:58)
[2020-07-28 06:48] LABS: Hemoglobin 10.2 g/dl (12.0-16.0); Mean Corpuscular HGB Conc 30.9 g/dl (31.0-35.0); Mean Corpuscular Hemoglobin 29.9 pg (27.0-33.0); Mean Corpuscular Volume 96.8 fL (80-98); Mean Platelet Volume 9.4 fL (9.4-12.3); Platelet Count 379 X10*3/uL (160-400); Red Blood Count 3.41 X10*6/uL (4.20-5.50); Red Cell Distribution Width 13.8 % (11.0-16.0)
--- NOTE | 2020-07-28 07:27 | P.PNGS_ITS ---
Subjective Subjective Date of Service: 07/28/20 Interval history: no events reproted she says she had been asking for pain meds but claims she is not getting what she wants hungry, wants to eat but sys she had not taken liquids yet Physical Exam Vital Signs: Vital Signs: Last Vital Signs Temp 97.3 F 07/28/20 03:45 Pulse 97 07/28/20 03:45 Resp 18 07/28/20 03:45 BP 159/83 H 07/28/20 03:45 Pulse Ox 99 07/28/20 03:45 Body Mass Index 22.6 Laboratory Results - last 24 hr 07/28/20 06:08 WBC 8.0 RBC 3.41 L Hgb 10.2 L Hct 33.0 L MCV 96.8 MCH 29.9 MCHC 30.9 L RDW 13.8 Plt Count 379 MPV 9.4 Absolute Nucleated RBC 0.000 Nucleated RBC % (a uto) 0.0 Const: General: comfortable and no acute distress Resp: Effort & Inspection: normal respiratory effort Cardio: Rhythm: regular rhythm GI: Other: incision clean and dry, Palpation (GI): Soft to palpation, not firm and no guarding Progress Note: A&P Assessment and plan (1) Perforated chronic peptic ulcer: Status: Acute Assessment and Plan: S/P Kel patch doing well says she has not been taking liquids despite allowed to push PO liquids, if tolerating, advance diet asking for pain meds - has chronic opioid use otherwise looks comfortable WBC normal Fall Risk Details Current Medications: Current Medications Generic Name Dose Route Start Last Admin Trade Name Freq PRN Reason Stop Dose Admin Albuterol/Ipratropium 3 ml 07/23/20 20:00 07/27/20 19:52 Albuterol/Iprat 2.5/0.5mg 3 Ml Ampul.Neb INHALE 3 ml RQ4H WHILE AWAKE JM Administration Benzocaine 1 lozenge 07/26/20 11:31 Throat Lozenge, Medicated Lozenge MUCOUS MEM Q2H PRN Sore Throat Hydromorphone HCl 2 mg 07/27/20 09:47 07/28/20 02:51 Hydromorphone Hcl 2 Mg/Ml Vial IVPUSH 2 mg Q3H PRN Administration Pain, Severe (Pain Scale 7-10) Piperacillin Sod/Tazobactam 50 mls @ 100 mls/hr 07/23/20 16:00 07/28/20 04:16 Sod 2.25 gm/ Sodium Chloride IV Infused Q6H JM Infusion Lactated Ringer's 1,000 mls @ 100 mls/hr 07/26/20 16:15 07/28/20 02:54 Lr IVCONT 100 mls/hr .Q10H JM Administration Acetaminophen 1,000 mg in 100 mls @ 400 mls/hr 07/26/20 18:15 07/28/20 05:23 Ofirmev IV Infused Q6H JM Infusion Lorazepam 0.25 mg 07/26/20 11:46 07/28/20 04:58 Lorazepam 2 Mg/Ml Vial IVPUSH 0.25 mg Q6H PRN Administration Anxiety Metoprolol Tartrate 2.5 mg 07/26/20 12:00 07/28/20 04:58 Metoprolol Tartrate 5 Mg/5 Ml Vial IVPUSH 2.5 mg Q6H JM Administration Ondansetron HCl 4 mg 07/23/20 14:43 Ondansetron Hcl 4 Mg/2 Ml Vial IVPUSH Q8H PRN Nausea Pantoprazole Sodium 40 mg 07/27/20 16:30 07/28/20 04:58 Pantoprazole Sodium 40 Mg/10 Ml Vial IVPUSH 40 mg BID@0630,1630 [facility] Administration Pharmacy Consult 1 each 07/23/20 07:45 Consult Rx Perform Med Rec MISCELLANE ONCE PRN Consult order Sodium Chloride 3 ml 07/25/20 16:00 07/27/20 21:14 0.9 % Sodium Chloride Flush 3 Ml Syringe IVFLUSH 3 ml QSHIFT JM Administration Tiotropium [place] 1 puff 07/28/20 08:00 Tiotropium [place] 18 Mcg Cap.W.Dev INHALE RDAILY [facility] Time Spent With Patient Time: Total time spent is greater than 50% in coordination of care (as documented) at patient's floor/unit and/or counseling patient: Time with patient: 15 - 24 minutes
[2020-07-28] MEDS: 0.9 % Sodium Chloride Flush 3 ML SYRINGE IVFLUSH ×2 (08:08→16:11)
[2020-07-28] MEDS: oxyCODONE HCl Immed Release 5 MG TABLET 10 MG PO (09:14)
--- NOTE | 2020-07-28 10:19 | MHC.SL.DTX ---
Pre-Treatment Diet: [employer] rec. NPO on 07/25. Pt had NG tube however, pulled it out overnight. Per RN, pt is on clear liquid diet only at this time. Subjective: Pt was laying in bed upon this [employer] VE[employer]'s arrival. Pt complaining of pain and requesting pain meds. Pt also complaining of wet bottom. RN notified of pt's complaints. Per RN, pt tolerating thin liquids and pills whole in liquid without difficulty. Initially, pt refused to trial PO however, with encouragement from MOT[employer] VEH[employer] L[employer]ER and RN, pt accepted limited trials. Pt repositioned upright at 90 degrees. Changes made to current diet?: YES Dysphasia Diet Status: CLEAR LIQUID DIET Liquid Consistency and Strategies: Liquid Intake Recommendation: THIN Compensatory Strategies for Safe Swallow: Small sips No chugging liquids Upright at 90 degrees for PO intake Frequent oral care Solid Food Consistency: Dietary Recommendations: TBD Additional Modifications to Solids: Oral Medication Intake: Whole with Liquid Strategies and Precautions to be Taken for Safe Swallow: Compensatory Swallowing Status: Supervision While Eating and/Drinking: Intermittent Level of Impact on: Daily activities: Moderate Interpersonal interactions: Moderate Community: Moderate Prognosis for Improvement: Fair Recommendation for Speech: Further Testing Needed Inpatient Speech Therapy Comment: [employer] will continue to follow during hospitalization. Additional Comments: Treatment: Pt accepted limited PO trials. She was given a cup of thin liquid and tolerated single sips without difficulty. Pt drank entire cup with no overt s/s aspiration. Due to pt's CLEAR LIQUID ONLY diet, solid PO was not trialed. Assessment: At this time, [employer] recommends THIN liquids. Solid PO recommendation to follow when pt is cleared for solid intake. Pt is recommended intermittent supervision and universal aspiration precautions. Social Work Coordinator Clinican/Clinical Fellow: Yes: Georgina Munoz M.A., -[employer] Supervisory Statement: I have reviewed and agree with the student/clinical fellow's documentation: Speech Language Pathologist:
[2020-07-28] MEDS: traMADoL HCL 50 MG TABLET 100 MG PO ×2 (12:09→17:43)
--- NOTE | 2020-07-28 14:22 | HO.PM.IMPN ---
Subjective Subjective Date of Service: 07/28/20 Interval History: She is still having pain, but much better Review of Systems Gen: no fever Resp: no sob, no cough CV: no chest, no DA SILVA, no leg edema GI: No n/v, +abd pain Neuro: No confusion Physical Exam Vital Signs: Vital Signs: Last Vital Signs Temp 98.6 F 07/28/20 12:00 Pulse 94 07/28/20 12:00 Resp 19 07/28/20 12:00 BP 149/90 H 07/28/20 12:00 Pulse Ox 98 07/28/20 12:00 Body Mass Index 22.6 General: AO X 3, no acute distress Resp: CTA bilateral CVS: S1,S2,RRR GI: +BS, Tender, no distention Skin: No rash Neuro: motor grossly intact Psych: appropriate affect Objective Data Current Medications Generic Name Dose Route Start Last Admin Trade Name Freq PRN Reason Stop Dose Admin Albuterol/Ipratropium 3 ml 07/23/20 20:00 07/28/20 11:12 Albuterol/Iprat 2.5/0.5mg 3 Ml Ampul.Neb INHALE Not Given RQ4H WHILE AWAKE JM Benzocaine 1 lozenge 07/26/20 11:31 Throat Lozenge, Medicated Lozenge MUCOUS MEM Q2H PRN Sore Throat Hydromorphone HCl 2 mg 07/27/20 09:47 07/28/20 02:51 Hydromorphone Hcl 2 Mg/Ml Vial IVPUSH 2 mg Q3H PRN Administration Pain, Severe (Pain Scale 7-10) Piperacillin Sod/Tazobactam 50 mls @ 100 mls/hr 07/23/20 16:00 07/28/20 11:59 Sod 2.25 gm/ Sodium Chloride IV Infused Q6H JM Infusion Lactated Ringer's 1,000 mls @ 100 mls/hr 07/26/20 16:15 07/28/20 08:18 Lr IVCONT 100 mls/hr .Q10H JM Administration Acetaminophen 1,000 mg in 100 mls @ 400 mls/hr 07/26/20 18:15 07/28/20 12:59 Ofirmev IV Infused Q6H JM Infusion Lorazepam 0.25 mg 07/28/20 13:26 Lorazepam 0.5 Mg Tablet PO Q6H PRN Anxiety Metoprolol Tartrate 25 mg 07/28/20 21:00 Metoprolol Tartrate 25 Mg Tablet PO BID [facility] Protocol Omeprazole 40 mg 07/29/20 06:30 Omeprazole 40 Mg Capsule. PO DAILY@0630 [facility] Ondansetron HCl 4 mg 07/23/20 14:43 Ondansetron Hcl 4 Mg/2 Ml Vial IVPUSH Q8H PRN Nausea Pharmacy Consult 1 each 07/23/20 07:45 Consult Rx Perform Med Rec MISCELLANE ONCE PRN Consult order Sodium Chloride 3 ml 07/25/20 16:00 07/28/20 08:08 0.9 % Sodium Chloride Flush 3 Ml Syringe IVFLUSH 3 ml QSHIFT [facility] Administration Tiotropium [place] 1 puff 07/28/20 08:00 07/28/20 07:54 Tiotropium [place] 18 Mcg Cap.W.Dev INHALE Not Given RDAILY [facility] Tramadol HCl 100 mg 07/28/20 11:11 07/28/20 12:09 Tramadol Hcl 50 Mg Tablet PO 100 mg Q6H PRN Administration Pain, Moderate (Pain Scale 4-6 Labs CBC & Chem 7: 07/28/20 06:08 07/26/20 09:52 Microbiology Microbiology Results: Microbiology 07/23/20 08:25 Blood - Venous Blood Culture - Final No growth after 5 days. 07/23/20 08:35 Blood - Venous Blood Culture - Final No growth after 5 days. 07/23/20 00:00 Peritoneal Fluid Gram Stain - Final 07/23/20 00:00 Peritoneal Fluid Routine Culture - Final No growth after 2 days 07/23/20 00:00 Peritoneal Fluid Anaerobic Culture - Final NO GROWTH AFTER 5 DAYS Assessment and Plan (1) Intractable abdominal pain: Status: Acute (2) Opioid use disorder: Status: Acute (3) Perforated chronic peptic ulcer: Status: Acute (4) Chronic respiratory failure: Status: Acute (5) COPD (chronic obstructive pulmonary disease): Status: Acute (6) Hypertension: Status: Acute Assessment and Plan: 70 year old female with remote history of opiate abuse on suboxone, COPD/chronic respiratory failure on supplemental o2, HTN who presented with abdominal pain found to have perforated viscus s/p omental patching of perforated peptic ulcer course complicated by uncontrolled pain. Perforated peptic ulcer s/p Kel patch POD#5 -Pain management with tramadol, dilaudid -Prophylaxix Zosyn -diet per surgery Tachycardia/hypertension likely due to opiate withdrawal pain--Much better -DC IV Metoprolol, oral metoprolol chronic respiratory failure, continue home O2 reports being on 5L home o2, goal o2 90-92% avoid over oxygenation continue breathing treatments Mood/Anxiety--Ativan, change to PO Opioid dependence-- On Suboxone at home PUD--has kristian on IV PPI CHRSI present on admission. Resolved dvt ppx - per surgery, will add compression boots. out of bed, ambulate
[2020-07-28] MEDS: LORazepam 0.5 MG TABLET 0.25 MG PO (16:10)
[2020-07-28] MEDS: Lactated Ringers 1,000 ML 60 ML IVCONT (18:41)
[2020-07-28] MEDS: Albuterol/Iprat 2.5/0.5MG 3 ML AMPUL.NEB INHALE (19:29)
[2020-07-28] MEDS: Metoprolol Tartrate 25 MG TABLET PO (22:26)
[2020-07-29] VITALS (10 sets, daily range): BP systolic 118–155; BP diastolic 67–105; PULSE 71–112; RESP 18–22; TEMP 36–37; O2SAT 91–100
[2020-07-29] MEDS: 0.9 % Sodium Chloride Flush 3 ML SYRINGE IVFLUSH ×4 (00:44→23:59)
[2020-07-29] MEDS: Piperacillin Sodium/Tazobactam 2.25 GM in 0.9 % Sodium Chloride 50 ML IV ×4 (04:29→21:56)
[2020-07-29] MEDS: traMADoL HCL 50 MG TABLET 100 MG PO ×3 (04:34→18:41)
[2020-07-29] MEDS: Omeprazole 40 MG CAPSULE.DR PO (06:19)
[2020-07-29] MEDS: Albuterol/Iprat 2.5/0.5MG 3 ML AMPUL.NEB INHALE ×2 (08:21→11:37)
--- NOTE | 2020-07-29 09:02 | PM.PNGS ---
Subjective Subjective Date of Service: 07/29/20 Interval history: Says she is okay this morning Tolerating clear liquids -seems to have had better intake yesterday No reported nausea or vomiting Patient constantly asking for her pain meds - specifically tramadol Has had periods of tachycardia but has been afebrile Physical Exam Vital Signs: Vital Signs: Last Vital Signs Temp 98 F 07/29/20 06:56 Pulse 98 07/29/20 08:44 Resp 20 07/29/20 06:56 BP 150/70 H 07/29/20 08:44 Pulse Ox 97 07/29/20 06:56 Body Mass Index 22.6 Const: General: comfortable, no acute distress and alert Resp: Effort & Inspection: normal respiratory effort Cardio: Rhythm: regular rhythm GI: Other: Incision clean Palpation (GI): Soft to palpation, not firm, no guarding and not rigid Progress Note: A&P Assessment and plan (1) Perforated chronic peptic ulcer: Status: Acute Assessment and Plan: Seems to be doing along well clinically Will start full liquids She looks well Has chronic opiate use - always as for tramadol for pain Out of bed to chair - discussed with nursing staff Appreciate follow-up by medical service Also, says she had chest pain just now - check EKG,, hospitalist follow-up Otherwise vitals have been hemodynamically stable Fall Risk Details Current Medications: Current Medications Generic Name Dose Route Start Last Admin Trade Name Freq PRN Reason Stop Dose Admin Albuterol/Ipratropium 3 ml 07/23/20 20:00 07/29/20 08:21 Albuterol/Iprat 2.5/0.5mg 3 Ml Ampul.Neb INHALE 3 ml RQ4H WHILE AWAKE JM Administration Benzocaine 1 lozenge 07/26/20 11:31 Throat Lozenge, Medicated Lozenge MUCOUS MEM Q2H PRN Sore Throat Hydromorphone HCl 2 mg 07/27/20 09:47 07/28/20 02:51 Hydromorphone Hcl 2 Mg/Ml Vial IVPUSH 2 mg Q3H PRN Administration Pain, Severe (Pain Scale 7-10) Piperacillin Sod/Tazobactam 50 mls @ 100 mls/hr 07/23/20 16:00 07/29/20 05:02 Sod 2.25 gm/ Sodium Chloride IV Infused Q6H JM Infusion Lactated Ringer's 1,000 mls @ 60 mls/hr 07/26/20 16:15 07/28/20 18:41 Lr IVCONT 60 mls/hr .[id number] JM Administration Acetaminophen 1,000 mg in 100 mls @ 400 mls/hr 07/26/20 18:15 07/29/20 06:36 Ofirmev IV Infused Q6H JM Infusion Lorazepam 0.25 mg 07/28/20 13:26 07/28/20 16:10 Lorazepam 0.5 Mg Tablet PO 0.25 mg Q6H PRN Administration Anxiety Metoprolol Tartrate 25 mg 07/28/20 21:00 07/28/20 22:26 Metoprolol Tartrate 25 Mg Tablet PO 25 mg BID JM Administration Protocol Omeprazole 40 mg 07/29/20 06:30 07/29/20 06:19 Omeprazole 40 Mg Capsule.Dr PO 40 mg DAILY@0630 JM Administration Ondansetron HCl 4 mg 07/23/20 14:43 Ondansetron Hcl 4 Mg/2 Ml Vial IVPUSH Q8H PRN Nausea Pharmacy Consult 1 each 07/23/20 07:45 Consult Rx Perform Med Rec MISCELLANE ONCE PRN Consult order Sodium Chloride 3 ml 07/25/20 16:00 07/29/20 00:44 0.9 % Sodium Chloride Flush 3 Ml Syringe IVFLUSH 3 ml QSHIFT JM Administration Tiotropium [place] 1 puff 07/29/20 07:40 07/29/20 08:22 Tiotropium [place] 18 Mcg Cap.W.Dev INHALE 1 puff RDAILY MJ Administration Tramadol HCl 100 mg 07/28/20 11:11 07/29/20 04:34 Tramadol Hcl 50 Mg Tablet PO 100 mg Q6H PRN Administration Pain, Moderate (Pain Scale 4-6 Time Spent With Patient Time: Total time spent is greater than 50% in coordination of care (as documented) at patient's floor/unit and/or counseling patient: Time with patient: 15 - 24 minutes
--- NOTE | 2020-07-29 09:05 | ECG_ITS ---
Test Reason : CHEST PAIN Blood Pressure : / mmHG Vent. Rate : 097 BPM Atrial Rate : 097 BPM P-R Int : 128 ms QRS Dur : 066 ms QT Int : 382 ms P-R-T Axes : 085 023 -29 degrees QTc Int : 485 ms Sinus rhythm with Premature atrial complexes Nonspecific ST abnormality Abnormal ECG When compared with ECG of 26-JUL-2020 16:48, Premature atrial complexes are now Present Criteria for Septal infarct are no longer Present ST now depressed in Inferior leads Nonspecific T wave abnormality now evident in Inferior leads Referred By: Otoniel Coats Electronically Signed By:KYREE BLACKWELL
[2020-07-29] MEDS: Metoprolol Tartrate 25 MG TABLET PO ×2 (09:17→21:56)
--- NOTE | 2020-07-29 10:46 | MHC.SLORD ---
Speech Language Pathology Order Status: INTERNET ARCHITECT checked in with RN. Pt is tolerating thin liquids without difficulty. Pt remains on clear liquid diet at this time. INTERNET ARCHITECT will continue to follow and trial solid PO when pt cleared for solids.
--- NOTE | 2020-07-29 12:31 | PM.EVENT ---
Event Note Date of Service: 07/29/20 Event Note: pt complained of vague chest pain earlier this morning said this was on the middle of chest appeared comfortable vital signs were unchanged she did not appear short of breath she asked to get up to sit on recliner EKG ordered, hospitalist ffmicaela worley nursing staff
[2020-07-29] MEDS: Lactated Ringers 1,000 ML 60 ML IVCONT (13:38)
[2020-07-29] MEDS: LORazepam 0.5 MG TABLET 0.25 MG PO (18:48)
[2020-07-29] MEDS: Acetaminophen Oral Liquid 650 MG/20.3 ML SOLUTION PO (19:27)
--- NOTE | 2020-07-29 20:17 | P.PNIM_ITS ---
Subjective Subjective Date of Service: 07/29/20 Interval History: f/u on med consult, s/p perforated viscus repair. Her pain is much better Review of Systems Gen: no fever Resp: no sob, no cough CV: no chest, no DA SILVA, no leg edema GI: No n/v, +abd pain Neuro: No confusion Physical Exam Vital Signs: Vital Signs: Last Vital Signs Temp 96.8 F 07/29/20 19:05 Pulse 85 07/29/20 19:05 Resp 20 07/29/20 19:05 BP 155/105 H 07/29/20 19:05 Pulse Ox 100 07/29/20 19:05 Body Mass Index 22.6 General: AO X 3, no acute distress Resp: CTA bilateral CVS: S1,S2,RRR GI: +BS, soft, mild tenderness Skin: No rash Neuro: motor grossly intact Psych: appropriate affect Objective Data Current Medications Generic Name Dose Route Start Last Admin Trade Name Freq PRN Reason Stop Dose Admin Acetaminophen 650 mg 07/29/20 19:02 07/29/20 19:27 Acetaminophen Oral Liquid 650 Mg/20.3 Ml Solution PO 650 mg Q6H PRN Administration Pain, Mild (Pain Scale 1-3) Albuterol/Ipratropium 3 ml 07/23/20 20:00 07/29/20 16:01 Albuterol/Iprat 2.5/0.5mg 3 Ml Ampul.Neb INHALE Not Given RQ4H WHILE AWAKE JM Benzocaine 1 lozenge 07/26/20 11:31 Throat Lozenge, Medicated Lozenge MUCOUS MEM Q2H PRN Sore Throat Hydromorphone HCl 2 mg 07/27/20 09:47 07/28/20 02:51 Hydromorphone Hcl 2 Mg/Ml Vial IVPUSH 2 mg Q3H PRN Administration Pain, Severe (Pain Scale 7-10) Piperacillin Sod/Tazobactam 50 mls @ 100 mls/hr 07/23/20 16:00 07/29/20 16:30 Sod 2.25 gm/ Sodium Chloride IV Infused Q6H JM Infusion Lorazepam 0.25 mg 07/28/20 13:26 07/29/20 18:48 Lorazepam 0.5 Mg Tablet PO 0.25 mg Q6H PRN Administration Anxiety Metoprolol Tartrate 25 mg 07/28/20 21:00 07/29/20 09:17 Metoprolol Tartrate 25 Mg Tablet PO 25 mg BID [facility] Administration Protocol Omeprazole 40 mg 07/29/20 06:30 07/29/20 06:19 Omeprazole 40 Mg Capsule.Dr PO 40 mg DAILY@0630 [facility] Administration Ondansetron HCl 4 mg 07/23/20 14:43 Ondansetron Hcl 4 Mg/2 Ml Vial IVPUSH Q8H PRN Nausea Pharmacy Consult 1 each 07/23/20 07:45 Consult Rx Perform Med Rec MISCELLANE ONCE PRN Consult order Sodium Chloride 3 ml 07/25/20 16:00 07/29/20 15:50 0.9 % Sodium Chloride Flush 3 Ml Syringe IVFLUSH 3 ml QSHIFT [facility] Administration Tiotropium [place] 1 puff 07/29/20 07:40 07/29/20 08:22 Tiotropium [place] 18 Mcg Cap.W.Dev INHALE 1 puff RDAILY [facility] Administration Tramadol HCl 100 mg 07/28/20 11:11 07/29/20 18:41 Tramadol Hcl 50 Mg Tablet PO 100 mg Q6H PRN Administration Pain, Moderate (Pain Scale 4-6 Labs CBC & Chem 7: 07/28/20 06:08 07/26/20 09:52 Microbiology Microbiology Results: Microbiology 07/23/20 08:25 Blood - Venous Blood Culture - Final No growth after 5 days. 07/23/20 08:35 Blood - Venous Blood Culture - Final No growth after 5 days. 07/23/20 00:00 Peritoneal Fluid Gram Stain - Final 07/23/20 00:00 Peritoneal Fluid Routine Culture - Final No growth after 2 days 07/23/20 00:00 Peritoneal Fluid Anaerobic Culture - Final NO GROWTH AFTER 5 DAYS Assessment and Plan (1) Intractable abdominal pain: Status: Acute (2) Opioid use disorder: Status: Acute (3) Perforated chronic peptic ulcer: Status: Acute (4) Chronic respiratory failure: Status: Acute (5) COPD (chronic obstructive pulmonary disease): Status: Acute (6) Hypertension: Status: Acute Assessment and Plan: 70 year old female with remote history of opiate abuse on suboxone, COPD/chronic respiratory failure on supplemental o2, HTN who presented with abdominal pain found to have perforated viscus s/p omental patching of perforated peptic ulcer course complicated by uncontrolled pain. Perforated peptic ulcer s/p Kel patch POD#6 -Pain management with tramadol, dilaudid -Prophylaxix Zosyn--may be converted to PO in 1 to 2 days so long as able to take oral -diet per surgery Tachycardia/hypertension likely due to opiate withdrawal pain--Resolved, oral metoprolol chronic respiratory failure, continue home O2 reports being on 5L home o2, goal o2 90-92% avoid over oxygenation continue breathing treatments Mood/Anxiety--Ativan, change to PO Opioid dependence-- On Suboxone at home PUD--PO PPI CHRIS present on admission. Resolved dvt ppx - per surgery, will add compression boots. out of bed, ambulate
[2020-07-30] VITALS (8 sets, daily range): BP systolic 91–172; BP diastolic 53–83; PULSE 63–102; RESP 18–20; TEMP 35.9–36.6; O2SAT 96–99
[2020-07-30] MEDS: Piperacillin Sodium/Tazobactam 2.25 GM in 0.9 % Sodium Chloride 50 ML IV ×3 (03:54→15:36)
[2020-07-30] MEDS: Omeprazole 40 MG CAPSULE.DR PO (06:08)
[2020-07-30 07:37] LABS: Hematocrit 33.5 % (37-47); Hemoglobin 10.4 g/dl (12.0-16.0); Mean Corpuscular Volume 96.5 fL (80-98); Mean Platelet Volume 9.4 fL (9.4-12.3); Platelet Count 433 X10*3/uL (160-400); Red Blood Count 3.47 X10*6/uL (4.20-5.50); Red Cell Distribution Width 13.7 % (11.0-16.0); White Blood Count 7.9 X10*3/uL (4.8-10.8)
--- NOTE | 2020-07-30 09:06 | P.PNGS_ITS ---
Subjective Subjective Date of Service: 07/30/20 Interval history: No complaints this morning No events reported overnight Seems to be tolerating full liquids Physical Exam Vital Signs: Vital Signs: Last Vital Signs Temp 96.6 F L 07/30/20 07:39 Pulse 77 07/30/20 07:39 Resp 18 07/30/20 07:39 BP 172/80 H 07/30/20 07:39 Pulse Ox 99 07/30/20 07:39 Body Mass Index 22.6 Laboratory Results - last 24 hr 07/30/20 06:18 WBC 7.9 RBC 3.47 L Hgb 10.4 L Hct 33.5 L MCV 96.5 MCH 30.0 MCHC 31.0 RDW 13.7 Plt Count 433 H MPV 9.4 Absolute Nucleated RBC 0.000 Nucleated RBC % (a uto) 0.0 Const: General: comfortable and no acute distress Resp: Effort & Inspection: normal respiratory effort Cardio: Rhythm: regular rhythm GI: Other: Incision well healing Palpation (GI): Soft to palpation, not firm, nontender and no guarding Progress Note: A&P Assessment and plan (1) Perforated chronic peptic ulcer: Status: Acute Assessment and Plan: Continues to do well Still as for meds - she has history of chronic opioid use Good GI function Advance diet Start discharge planning - will discuss with rehabilitation caseworker Fall Risk Details Current Medications: Current Medications Generic Name Dose Route Start Last Admin Trade Name Freq PRN Reason Stop Dose Admin Acetaminophen 650 mg 07/29/20 19:02 07/29/20 19:27 Acetaminophen Oral Liquid 650 Mg/20.3 Ml Solution PO 650 mg Q6H PRN Administration Pain, Mild (Pain Scale 1-3) Albuterol/Ipratropium 3 ml 07/23/20 20:00 07/30/20 07:43 Albuterol/Iprat 2.5/0.5mg 3 Ml Ampul.Neb INHALE Not Given RQ4H WHILE AWAKE JM Benzocaine 1 lozenge 07/26/20 11:31 Throat Lozenge, Medicated Lozenge MUCOUS MEM Q2H PRN Sore Throat Hydromorphone HCl 2 mg 07/27/20 09:47 07/28/20 02:51 Hydromorphone Hcl 2 Mg/Ml Vial IVPUSH 2 mg Q3H PRN Administration Pain, Severe (Pain Scale 7-10) Piperacillin Sod/Tazobactam 50 mls @ 100 mls/hr 07/23/20 16:00 07/30/20 06:09 Sod 2.25 gm/ Sodium Chloride IV Infused Q6H JM Infusion Lorazepam 0.25 mg 07/28/20 13:26 07/29/20 18:48 Lorazepam 0.5 Mg Tablet PO 0.25 mg Q6H PRN Administration Anxiety Metoprolol Tartrate 25 mg 07/28/20 21:00 07/29/20 21:56 Metoprolol Tartrate 25 Mg Tablet PO 25 mg BID JM Administration Protocol Omeprazole 40 mg 07/29/20 06:30 07/30/20 06:08 Omeprazole 40 Mg Capsule.Dr PO 40 mg DAILY@0630 [facility] Administration Ondansetron HCl 4 mg 07/23/20 14:43 Ondansetron Hcl 4 Mg/2 Ml Vial IVPUSH Q8H PRN Nausea Pharmacy Consult 1 each 07/23/20 07:45 Consult Rx Perform Med Rec MISCELLANE ONCE PRN Consult order Sodium Chloride 3 ml 07/25/20 16:00 07/29/20 23:59 0.9 % Sodium Chloride Flush 3 Ml Syringe IVFLUSH 3 ml QSHIFT [facility] Administration Tiotropium [place] 1 puff 07/29/20 07:40 07/30/20 07:43 Tiotropium [place] 18 Mcg Cap.W.Dev INHALE Not Given RDAILY [facility] Tramadol HCl 100 mg 07/28/20 11:11 07/29/20 18:41 Tramadol Hcl 50 Mg Tablet PO 100 mg Q6H PRN Administration Pain, Moderate (Pain Scale 4-6 Time Spent With Patient Time: Total time spent is greater than 50% in coordination of care (as documented) at patient's floor/unit and/or counseling patient: Time with patient: 15 - 24 minutes
[2020-07-30] MEDS: 0.9 % Sodium Chloride Flush 3 ML SYRINGE IVFLUSH ×3 (10:30→20:15)
[2020-07-30] MEDS: traMADoL HCL 50 MG TABLET 100 MG PO ×3 (10:30→23:15)
[2020-07-30] MEDS: Metoprolol Tartrate 25 MG TABLET PO ×2 (10:30→20:07)
[2020-07-30] MEDS: Acetaminophen Oral Liquid 650 MG/20.3 ML SOLUTION PO ×3 (10:30→23:14)
--- NOTE | 2020-07-30 10:44 | MHC.SLORD ---
Speech Language Pathology Order Status: PUBLISHING AGENT attempted to see pt 2x this morning. The first time, pt was using the commode and the second time, pt refused due to complaints of pain. Per RN, pt is tolerating thin liquids without difficulty. Per GI, pt's diet to be asvanced from clear liquids only to full liquids. PUBLISHING AGENT will continue to follow during hospitalization. PUBLISHING AGENT to re-evaluate for solid PO trials when pt is cleared for solid intake.
--- NOTE | 2020-07-30 11:54 | P.PNIM_ITS ---
Subjective Subjective Date of Service: 07/30/20 Interval History: f/u on med consult, s/p perforated viscus repair. She is continuing to improve but still has pain Review of Systems Gen: no fever Resp: no sob, no cough CV: no chest, no DA SILVA, no leg edema GI: No n/v, +abd pain Neuro: No confusion Physical Exam Vital Signs: Vital Signs: Last Vital Signs Temp 96.6 F L 07/30/20 07:39 Pulse 77 07/30/20 09:17 Resp 18 07/30/20 07:39 BP 172/80 H 07/30/20 09:17 Pulse Ox 99 07/30/20 09:17 Body Mass Index 22.6 Const: Other: General: AO X 3, no acute distress Resp: CTA bilateral CVS: S1,S2,RRR GI: +BS, soft, mild tenderness, no distention Skin: No rash Neuro: motor grossly intact Psych: appropriate affect Objective Data Current Medications Generic Name Dose Route Start Last Admin Trade Name Freq PRN Reason Stop Dose Admin Acetaminophen 650 mg 07/29/20 19:02 07/30/20 10:30 Acetaminophen Oral Liquid 650 Mg/20.3 Ml Solution PO 650 mg Q6H PRN Administration Pain, Mild (Pain Scale 1-3) Albuterol/Ipratropium 3 ml 07/23/20 20:00 07/30/20 11:11 Albuterol/Iprat 2.5/0.5mg 3 Ml Ampul.Neb INHALE Not Given RQ4H WHILE AWAKE JM Benzocaine 1 lozenge 07/26/20 11:31 Throat Lozenge, Medicated Lozenge MUCOUS MEM Q2H PRN Sore Throat Hydromorphone HCl 2 mg 07/27/20 09:47 07/28/20 02:51 Hydromorphone Hcl 2 Mg/Ml Vial IVPUSH 2 mg Q3H PRN Administration Pain, Severe (Pain Scale 7-10) Piperacillin Sod/Tazobactam 50 mls @ 100 mls/hr 07/23/20 16:00 07/30/20 11:19 Sod 2.25 gm/ Sodium Chloride IV Infused Q6H JM Infusion Lorazepam 0.25 mg 07/28/20 13:26 07/29/20 18:48 Lorazepam 0.5 Mg Tablet PO 0.25 mg Q6H PRN Administration Anxiety Metoprolol Tartrate 25 mg 07/28/20 21:00 07/30/20 10:30 Metoprolol Tartrate 25 Mg Tablet PO 25 mg BID [facility] Administration Protocol Omeprazole 40 mg 07/29/20 06:30 07/30/20 06:08 Omeprazole 40 Mg Capsule. PO 40 mg DAILY@0630 [facility] Administration Ondansetron HCl 4 mg 07/23/20 14:43 Ondansetron Hcl 4 Mg/2 Ml Vial IVPUSH Q8H PRN Nausea Pharmacy Consult 1 each 07/23/20 07:45 Consult Rx Perform Med Rec MISCELLANE ONCE PRN Consult order Sodium Chloride 3 ml 07/25/20 16:00 07/30/20 10:30 0.9 % Sodium Chloride Flush 3 Ml Syringe IVFLUSH 3 ml QSHIFT [facility] Administration Tiotropium [place] 1 puff 07/29/20 07:40 07/30/20 07:43 Tiotropium [place] 18 Mcg Cap.W.Dev INHALE Not Given RDAILY [facility] Tramadol HCl 100 mg 07/28/20 11:11 07/30/20 10:30 Tramadol Hcl 50 Mg Tablet PO 100 mg Q6H PRN Administration Pain, Moderate (Pain Scale 4-6 Labs CBC & Chem 7: 07/30/20 06:18 07/26/20 09:52 Microbiology Microbiology Results: Microbiology 07/23/20 08:25 Blood - Venous Blood Culture - Final No growth after 5 days. 07/23/20 08:35 Blood - Venous Blood Culture - Final No growth after 5 days. 07/23/20 00:00 Peritoneal Fluid Gram Stain - Final 07/23/20 00:00 Peritoneal Fluid Routine Culture - Final No growth after 2 days 07/23/20 00:00 Peritoneal Fluid Anaerobic Culture - Final NO GROWTH AFTER 5 DAYS Assessment and Plan (1) Intractable abdominal pain: Status: Acute (2) Opioid use disorder: Status: Acute (3) Perforated chronic peptic ulcer: Status: Acute (4) Chronic respiratory failure: Status: Acute (5) COPD (chronic obstructive pulmonary disease): Status: Acute (6) Hypertension: Status: Acute Assessment and Plan: 70 year old female with remote history of opiate abuse on suboxone, COPD/chronic respiratory failure on supplemental o2, HTN who presented with abdominal pain found to have perforated viscus s/p omental patching of perforated peptic ulcer course complicated by uncontrolled pain. Perforated peptic ulcer s/p Kel patch on 07/23 and has been have quite a lot of pain -Pain management with tramadol, dilaudid -Prophylaxix Zosyn--may be converted to PO in 1 to 2 days so long as able to take oral -diet per surgery Tachycardia/hypertension likely due to opiate withdrawal pain--Resolved, oral metoprolol chronic respiratory failure, continue home O2 reports being on 5L home o2, goal o2 90-92% avoid over oxygenation continue breathing treatments Mood/Anxiety--Ativan Opioid dependence-- On Suboxone at home PUD--PO PPI CHRIS present on admission. Resolved dvt ppx - per surgery, will add compression boots. out of bed, ambulate
[2020-07-31 03:58] VITALS: BP 164/79; PULSE 69; RESP 18; TEMP 36.9; O2SAT 99
[2020-07-31] MEDS: Omeprazole 40 MG CAPSULE.DR PO (05:37)
[2020-07-31] MEDS: Acetaminophen Oral Liquid 650 MG/20.3 ML SOLUTION PO ×2 (06:26→12:23)
[2020-07-31] MEDS: traMADoL HCL 50 MG TABLET 100 MG PO ×2 (06:27→12:23)
[2020-07-31 07:12] VITALS: BP 121/61; PULSE 79; RESP 18; TEMP 36; O2SAT 100
[2020-07-31 07:27] VITALS: PULSE 67; O2SAT 96
[2020-07-31] MEDS: Metoprolol Tartrate 25 MG TABLET PO (09:42)
[2020-07-31] MEDS: 0.9 % Sodium Chloride Flush 3 ML SYRINGE IVFLUSH (09:43)
--- NOTE | 2020-07-31 10:28 | P.PNGS_ITS ---
Subjective Subjective Date of Service: 07/31/20 Interval history: Tolerating diet No nausea vomiting No reported events the past several days Patient does as for additional pain meds periodically but has chronic opioid use Physical Exam Vital Signs: Vital Signs: Last Vital Signs Temp 96.8 F 07/31/20 07:12 Pulse 67 07/31/20 07:27 Resp 18 07/31/20 07:12 BP 121/61 07/31/20 07:12 Pulse Ox 100 07/31/20 07:12 Body Mass Index 22.6 Const: General: comfortable and no acute distress Resp: Effort & Inspection: normal respiratory effort Cardio: Rate: regular rate GI: Other: Incision clean and dry, mery intact Palpation (GI): Soft to palpation, not firm, nontender and no guarding Progress Note: A&P Assessment and plan (1) Perforated chronic peptic ulcer: Problem details: [age] year female who was admitted because of all pain on July 23, 2020. A CAT scan showed some free air near the area of the duodenum suggestive of perforated ulcer. She underwent a mini-laparotomy with Dr. Diaz that same morning. This had shown a perforated ulcer at what appeared to be the pre- pyloric area. This was repaired with a Kel patch. In view of her COPD, she remained intubated postop and was transferred to the interns of care unit. She actually was extubated on postop day 1. She continued to do well. She had an NG tube in place. She was monitored in the ICU until postop day 3. She was transferred to the [facility] Unit. She apparently had pulled out her NG tube later that night. She continued to do well however so I started her on clear liquids on postop day 4. She had initially poor intake but eventually this improved so I gradually advanced her diet. She continued to tolerate this well. Her main issue then was pain management as she frequently ask for different pain medications postop. She remained hemodynamically stable without any fever or chills. She was tolerating regular diet bed postop day number 6 and remained stable. The decision was therefore made to discharge her to the rehab facility. The hospital service was following her during her hospital stay. She had some acute kidney injury which resolved. She had some initial tachycardia and hypertension likely due to her history of appeared withdrawal and this had re solved as well. She had been on IV antibiotics but she had completed 7 days of this. I anticipate that her short-term rehab stay will be less than 30 days. Status: Acute Assessment and Plan: Status post Kel patch Tolerating diet Good GI function Exam is been benign Okay to DC to rehab today Patient understood this plan Fall Risk Details Current Medications: Current Medications Generic Name Dose Route Start Last Admin Trade Name Freq PRN Reason Stop Dose Admin Acetaminophen 650 mg 07/29/20 19:02 07/31/20 06:26 Acetaminophen Oral Liquid 650 Mg/20.3 Ml Solution PO 650 mg Q6H PRN Administration Pain, Mild (Pain Scale 1-3) Albuterol/Ipratropium 3 ml 07/30/20 12:53 Albuterol/Iprat 2.5/0.5mg 3 Ml Ampul.Neb INHALE RQ4H WHILE AWAKE PRN wheezing Benzocaine 1 lozenge 07/26/20 11:31 Throat Lozenge, Medicated Lozenge MUCOUS MEM Q2H PRN Sore Throat Hydromorphone HCl 2 mg 07/27/20 09:47 07/28/20 02:51 Hydromorphone Hcl 2 Mg/Ml Vial IVPUSH 2 mg Q3H PRN Administration Pain, Severe (Pain Scale 7-10) Lorazepam 0.25 mg 07/28/20 13:26 07/29/20 18:48 Lorazepam 0.5 Mg Tablet PO 0.25 mg Q6H PRN Administration Anxiety Metoprolol Tartrate 25 mg 07/28/20 21:00 07/31/20 09:42 Metoprolol Tartrate 25 Mg Tablet PO 25 mg BID JM Administration Protocol Omeprazole 40 mg 07/29/20 06:30 07/31/20 05:37 Omeprazole 40 Mg Capsule. PO 40 mg DAILY@0630 JM Administration Ondansetron HCl 4 mg 07/23/20 14:43 Ondansetron Hcl 4 Mg/2 Ml Vial IVPUSH Q8H PRN Nausea Pharmacy Consult 1 each 07/23/20 07:45 Consult Rx Perform Med Rec MISCELLANE ONCE PRN Consult order Sodium Chloride 3 ml 07/25/20 16:00 07/31/20 09:43 0.9 % Sodium Chloride Flush 3 Ml Syringe IVFLUSH 3 ml QSHIFT JM Administration Tiotropium [place] 1 puff 07/29/20 07:40 07/31/20 07:28 Tiotropium [place] 18 Mcg Cap.W.Dev INHALE 1 puff RDAILY JM Administration Tramadol HCl 100 mg 07/28/20 11:11 07/31/20 06:27 Tramadol Hcl 50 Mg Tablet PO 100 mg Q6H PRN Administration Pain, Moderate (Pain Scale 4-6 Time Spent With Patient Time: Total time spent is greater than 50% in coordination of care (as documented) at patient's floor/unit and/or counseling patient: Time with patient: 15 - 24 minutes
[2020-07-31 10:58] VITALS: BP 102/69; PULSE 108; RESP 20; TEMP 36.6; O2SAT 96
[2020-07-31 11:25] LABS: IDNOW Serial# 9DD0AD1C
[2020-07-31 11:26] LABS: COVID-19 Test Negative (Negative)
--- NOTE | 2020-07-31 11:55 | HO.PM.IMPN ---
Subjective Subjective Date of Service: 07/31/20 Interval History: f/u on med consult, s/p perforated viscus repair. She still has pain but is much better Review of Systems Gen: no fever Resp: no sob, no cough CV: no chest, no DA SILVA, no leg edema GI: No n/v, +abd pain Neuro: No confusion Physical Exam Vital Signs: Vital Signs: Last Vital Signs Temp 98 F 07/31/20 10:58 Pulse 108 H 07/31/20 10:58 Resp 20 07/31/20 10:58 BP 102/69 07/31/20 10:58 Pulse Ox 96 07/31/20 10:58 Body Mass Index 22.6 Const: Other: General: AO X 3, no acute distress Resp: CTA bilateral CVS: S1,S2,RRR GI: +BS, soft, mild tenderness, no distention Skin: No rash Neuro: motor grossly intact Psych: appropriate affect Objective Data Current Medications Generic Name Dose Route Start Last Admin Trade Name Freq PRN Reason Stop Dose Admin Acetaminophen 650 mg 07/29/20 19:02 07/31/20 06:26 Acetaminophen Oral Liquid 650 Mg/20.3 Ml Solution PO 650 mg Q6H PRN Administration Pain, Mild (Pain Scale 1-3) Albuterol/Ipratropium 3 ml 07/30/20 12:53 Albuterol/Iprat 2.5/0.5mg 3 Ml Ampul.Neb INHALE RQ4H WHILE AWAKE PRN wheezing Benzocaine 1 lozenge 07/26/20 11:31 Throat Lozenge, Medicated Lozenge MUCOUS MEM Q2H PRN Sore Throat Hydromorphone HCl 2 mg 07/27/20 09:47 07/28/20 02:51 Hydromorphone Hcl 2 Mg/Ml Vial IVPUSH 2 mg Q3H PRN Administration Pain, Severe (Pain Scale 7-10) Lorazepam 0.25 mg 07/28/20 13:26 07/29/20 18:48 Lorazepam 0.5 Mg Tablet PO 0.25 mg Q6H PRN Administration Anxiety Metoprolol Tartrate 25 mg 07/28/20 21:00 07/31/20 09:42 Metoprolol Tartrate 25 Mg Tablet PO 25 mg BID JM Administration Protocol Omeprazole 40 mg 07/29/20 06:30 07/31/20 05:37 Omeprazole 40 Mg Capsule. PO 40 mg DAILY@0630 [facility] Administration Ondansetron HCl 4 mg 07/23/20 14:43 Ondansetron Hcl 4 Mg/2 Ml Vial IVPUSH Q8H PRN Nausea Pharmacy Consult 1 each 07/23/20 07:45 Consult Rx Perform Med Rec MISCELLANE ONCE PRN Consult order Sodium Chloride 3 ml 07/25/20 16:00 07/31/20 09:43 0.9 % Sodium Chloride Flush 3 Ml Syringe IVFLUSH 3 ml QSHIFT [facility] Administration Tiotropium [place] 1 puff 07/29/20 07:40 07/31/20 07:28 Tiotropium [place] 18 Mcg Cap.W.Dev INHALE 1 puff RDAILY [facility] Administration Tramadol HCl 100 mg 07/28/20 11:11 07/31/20 06:27 Tramadol Hcl 50 Mg Tablet PO 100 mg Q6H PRN Administration Pain, Moderate (Pain Scale 4-6 Labs CBC & Chem 7: 07/30/20 06:18 07/26/20 09:52 Microbiology Microbiology Results: Microbiology 07/23/20 08:25 Blood - Venous Blood Culture - Final No growth after 5 days. 07/23/20 08:35 Blood - Venous Blood Culture - Final No growth after 5 days. 07/23/20 00:00 Peritoneal Fluid Gram Stain - Final 07/23/20 00:00 Peritoneal Fluid Routine Culture - Final No growth after 2 days 07/23/20 00:00 Peritoneal Fluid Anaerobic Culture - Final NO GROWTH AFTER 5 DAYS Assessment and Plan (1) Intractable abdominal pain: Status: Acute (2) Opioid use disorder: Status: Acute (3) Perforated chronic peptic ulcer: Status: Acute (4) Chronic respiratory failure: Status: Acute (5) COPD (chronic obstructive pulmonary disease): Status: Acute (6) Hypertension: Status: Acute Assessment and Plan: 70 year old female with remote history of opiate abuse on suboxone, COPD/chronic respiratory failure on supplemental o2, HTN who presented with abdominal pain found to have perforated viscus s/p omental patching of perforated peptic ulcer course complicated by uncontrolled pain. Perforated peptic ulcer s/p Kel patch on 07/23 and has been have quite a lot of pain -Pain management with tramadol, dilaudid -Prophylaxix Zosyn--may be converted to PO in 1 to 2 days so long as able to take oral -diet per surgery Tachycardia/hypertension likely due to opiate withdrawal pain--Resolved, oral metoprolol chronic respiratory failure, continue home O2 reports being on 5L home o2, goal o2 90-92% avoid over oxygenation continue breathing treatments Mood/Anxiety--Ativan Opioid dependence-- On Suboxone at home PUD--PO PPI CHRIS present on admission. Resolved to rehab for less than 30 days dvt ppx - per surgery, will add compression boots. out of bed, ambulate
--- NOTE | 2020-07-31 12:34 | MHC.CM.PN ---
Patient has been medically cleared for dc to STR/SNF today. CM presented Patient with SNF options and she is aware of and in agreement with the plan to dc today to [facility] today at 1:30 PM via [facility] transport. CM attempted to leave a message for Son/Talha @ [phone] but the message indicates a need to enter a remote access code and cm was unable to leave a message. [facility] addressed with Patient at bedside today,providing Patient with the original and a copy has been placed on the chart.
--- NOTE | 2020-07-31 12:36 | MHC.SLORD ---
Speech Language Pathology Order Status: [facility] spoke with RN, who reports that patient continues to be on a full liquid diet. [facility] will continue to follow.
--- NOTE | 2020-07-31 12:49 | MHC.CM.PN ---
CM received a return call from Patient's Son/Talha and KEELY was able to inform him of the dc plan. He is in agreement also.
--- NOTE | 2020-07-31 13:05 | PM.DS ---
DS: Providers Provider Date of Service: 07/31/20 Date of admission: 07/23/20 10:28 Primary care physician: Kait Robin MD Consults: 07/26/20 09:51 Consult to Hospitalist Stat Consulting Provider: Hospitalist Reason For Exam: Increase 02 need, hx of COPD DS: Diagnosis Discharge Diagnosis (1) Intractable abdominal pain: Status: Acute (2) Opioid use disorder: Status: Acute (3) Perforated chronic peptic ulcer: Status: Acute Problem details: [age] year female who was admitted because of all pain on July 23, 2020. A CAT scan showed some free air near the area of the duodenum suggestive of perforated ulcer. She underwent a mini-laparotomy with Dr. Diaz that same morning. This had shown a perforated ulcer at what appeared to be the pre-pyloric area. This was repaired with a Kel patch. In view of her COPD, she remained intubated postop and was transferred to the interns of care unit. She actually was extubated on postop day 1. She continued to do well. She had an NG tube in place. She was monitored in the ICU until postop day 3. She was transferred to the [facility] Unit. She apparently had pulled out her NG tube later that night. She continued to do well however so I started her on clear liquids on postop day 4. She had initially poor intake but eventually this improved so I gradually advanced her diet. She continued to tolerate this well. Her main issue then was pain management as she frequently ask for different pain medications postop. She remained hemodynamically stable without any fever or chills. She was tolerating regular diet bed postop day number 6 and remained stable. The decision was therefore made to discharge her to the rehab facility. The hospital service was following her during her hospital stay. She had some acute kidney injury which resolved. She had some initial tachycardia and hypertension likely due to her history of appeared withdrawal and this had resolved as well. She had been on IV antibiotics but she had completed 7 days of this. I anticipate that her short-term rehab stay will be less than 30 days. (4) Chronic respiratory failure: Status: Acute (5) COPD (chronic obstructive pulmonary disease): Status: Acute (6) Hypertension: Status: Acute DS: Medications Discharge Medications Home Medications: Home Medications Medication Instructions Recorded Confirmed Advair HFA 2 puff INHALATION BID 07/23/20 07/23/20 Spiriva Respimat 2 puff INHALATION DAILY 07/23/20 07/23/20 albuterol sulfate [Ventolin HFA] 2 puff INHALATION BID PRN 07/23/20 07/23/20 amlodipine 10 mg PO DAILY 07/23/20 07/23/20 buprenorphine-naloxone 1 film SUBLINGUAL BID 07/23/20 07/23/20 cholecalciferol (vitamin D3) 1,000 unit PO DAILY 07/23/20 07/23/20 gabapentin 1,200 tab PO BID 07/23/20 07/23/20 lidocaine 1 appl TOPICAL TID 07/23/20 07/23/20 mirtazapine 15 mg PO BEDTIME 07/23/20 07/23/20 DS: Summary Time Spent with Patient Time attestation: Total time spent providing and/or coordinating discharge services: Discharge coordination time: Greater than 30 minutes Physical Exam Vital Signs: Vital Signs: Last Vital Signs Temp 98 F 07/31/20 10:58 Pulse 108 H 07/31/20 10:58 Resp 20 07/31/20 10:58 BP 102/69 07/31/20 10:58 Pulse Ox 96 07/31/20 10:58 Body Mass Index 22.6 Const: General: comfortable and no acute distress Orientation/consciousness: patient oriented x3 Resp: Other: Minimal shortness of breath seems to be as baseline, good air entry bilaterally Cardio: Rhythm: regular rhythm GI: Other: Soft, nondistended, no guarding or rebound, incision clean and dry Neuro: General: patient oriented x3 Extrem: General: Yes capillary refill normal DS: Data Data Completed and Pending Labs on day of discharge: Laboratory Results - last 24 hr 07/31/20 10:40 COVID-19 ([facility]) Negative COVID-19 Clin Com See Note Discharge Plan Discharge Patient Disposition: [facility] Discharge Diagnosis: Perforated peptic ulcer Referrals: [facility] [Outside] - 1 Week Roc Vaughn MD [Physician] - 1 Week Kait Robin MD [Primary Care Provider] - 1 Week Discharge Medications: New tramadol 50 mg tablet 50 mg PO Q6H PRN (Reason: pain) Qty: 20 RF: 0 Continued amlodipine 10 mg tablet 10 mg PO DAILY RF: 0 albuterol sulfate [Ventolin HFA] 90 mcg/actuation HFA aerosol inhaler 2 puff inhalation BID PRN (Reason: wheezing) RF: 0 cholecalciferol (vitamin D3) 25 mcg (1,000 unit) capsule 1,000 unit PO DAILY RF: 0 mirtazapine 7.5 mg tablet 15 mg PO BEDTIME RF: 0 Advair HFA 115-21 mcg/actuation HFA aerosol inhaler 2 puff inhalation BID RF: 0 buprenorphine-naloxone 8-2 mg film 1 film sublingual BID RF: 0 Spiriva Respimat 1.25 mcg/actuation mist 2 puff inhalation DAILY RF: 0 gabapentin 600 mg tablet 1,200 tab PO BID RF: 0 lidocaine 5 % ointment 1 appl topical TID RF: 0 Discharge Orders: Discharge Order (Routine); Ordered 07/31/20 Ordered By: Roc Vaughn Diet: advance to usual diet Activity on Discharge: No heavy lifting Stand Alone Forms: Patient Portal Discharge page Care Plan Goals: control COPD pain mkanagement Health Concerns: has COPD chronic narcotic use Plan of Treatment: discharge to Rehab ffup in office in 2-3 weeks to remove mery Assessment: stable for discharge did well postop for perforated ulcer Discharge Date/Time: 07/31/20 14:14
== END 2020-07-31 14:14 | disposition skilled nursing facility (03) | DRG 326 ==
LOC: HO.ED 10:26 → HO.SSS 10:31 → HO.SSSA 10:34 → HO.ICU 14:37 → HO.IMC 07-25 07:14
PROVIDERS: Internal Medicine; Physician Assistant; Physician Assistant Medical; Physician Assistant Surgical; Admitting Provider Surgery; Emergency Provider Emergency Medicine; PCP Internal Medicine; Visit Provider Surgery
PROC: 0DU707Z Supplement Stomach, Pylorus with Autologous Tissue Substitute, Open Approach (ICD-10-PCS; CPT 49000; principal; 2020-07-23 11:30)
DX: K25.5 Chronic or unspecified gastric ulcer with perforation (principal); K65.9 Peritonitis, unspecified; J96.12 Chronic respiratory failure with hypercapnia; J96.11 Chronic respiratory failure with hypoxia; N17.9 Acute kidney failure, unspecified; N39.0 Urinary tract infection, site not specified; E87.2 Acidosis; F11.23 Opioid dependence with withdrawal; F41.9 Anxiety disorder, unspecified; I10 Essential (primary) hypertension; J44.9 Chronic obstructive pulmonary disease, unspecified; Z20.822 Contact with and (suspected) exposure to COVID-19; Z87.442 Personal history of urinary calculi; Z99.81 Dependence on supplemental oxygen; Z87.891 Personal history of nicotine dependence; Z79.899 Other long term (current) drug therapy; Z66 Do not resuscitate
CPT/HCPCS: 36415; 71045; 74176; 76705; 80048; 80076; 81001; 82947; 83605; 83690; 83735; 84100; 84439; 84443; 85025; 85027; 85610; 85730; 86850; 86900; 87040; 87071; 87073; 87205; 87635; 92526; 92610; 93005; 94002; 94003; 94640; 94799; 96365; 96375; 97116; 97163; 99024; 99284; 99291; C1758; J0131; J0330; J0571; J0690; J1100; J1170; J1885; J2060; J2270; J2370; J2405; J2543; J3010

== ENCOUNTER → 2020-08-24 13:26 | Outpatient (BNVA) | payer OTHER, SELFPAY | PROVIDERS: PCP Internal Medicine; Visit Provider Surgery | DX: K27.5 Chronic or unspecified peptic ulcer, site unspecified, with perforation (principal); Z87.891 Personal history of nicotine dependence; Z79.899 Other long term (current) drug therapy | CPT/HCPCS: 99212 ==